=== PATIENT | male | born 1970 | race Caucasian/White ===

== ENCOUNTER → 2016-08-17 | Outpatient (CLI) | payer BC ==
[~2016-08-17] MED LIST: ALBU1AER9; ASPEC81 PO; DEXL60CA4 PO; LORA0.5T12 PO; LPT40 PO; RANI300T2 PO
--- NOTE | 2016-08-18 06:09 | PAP/PSG TECHNICIAN REPORT ---
[facility] Pta Polysomnogram Report Study name: None Report date: 08/18/2016 Study date: 08/17/2016 Referring Physician: Julio BOND M.D. Name: MCKENZIE VANE Garcia Interpreting Physician: Elsy Bond M.D. Date of : 1970 Pta: Sary Dumont RPSGT. Sex: Male Age: 46 Study Type: PSG PAP Weight: 224 lbs Height: 46 years, Height 5' 8" BMI: 34.06 Medications: LORAZEPAM 0.5 MG, ATORVASTATIN 40 MG, DEXILANT 60 MG, ALBUTEROL, RANITIDINE 300 MG, HYDROCORTISONE MOON-PRAMOXINE 1-1% CREAM, ASPIRIN 81 MG, MULTI VIT Patient History 46 yr-old male here for a CPAP update study. He has been having trouble with the pressure settings. He will be placed on BiPAP if the CPAP pressure is too uncomfortable. The test was started on room air and 8 CMH2O (per doctor's order). ETCO2 testing was not utilized during this study. Room 1 Parameters Monitored NPSG: E1-M2, E2-M1, Fp1-M2, Fp2-M1, F3-M2, F4-M2, F4-M1, C3-M2, C4-M2, C4-M1, O1-M2, O2-M2, O2-M1, T3-M2, T4-M1, P3-M2, P4-M1, CHIN1, CHIN2, HR, EKG, Legs, PFLOW, SNOR, FLOW, CFLOW, Tidal Volume, THOR, ABDO, SpO2, PLTH, CPRESS, ETCO2 Wave, ETCO2, pH Sleep Architecture Sleep Stages Time at Lights Off 10:44:38 PM STAGES Time (min.) TST (%) Time at Lights On 5:55:38 AM Wake 104.5 -- Total Recording Time (TRT) 431.00 min. N1 41.5 13 Total Sleep Period (TSP) 387.0 min. N2 226.5 69 Total Sleep Time (TST) 326.5min. N3 0.0 0 Awake Time 104.5 min. REM 58.5 18 Wake after Sleep Onset 60.5 min. Sleep Efficiency (SE) 76 % Sleep Onset Latency (VERONICA) 44.0 min. Number of Stage 1 Shifts None Awakenings 26 Stage Changes 84 Number of REM periods 7 REM 58.5 18 REM Latency 55.0 min. NREM 268.0 82 Body Position Analysis Supine Right Left Side Prone Vertical Total Sleep Time (min.) 220.3 5.0 163.7 168.71 0.0 0.0 Total Sleep Time (%) 48% 2% 50% 52 0% N/A% Total Sleep Time REM (min.) 39.0 0.0 19.5 None 0.0 0.0 Total Sleep Time NREM (min.) 118.8 5.0 144.2 None 0.0 0.0 Intermittent Wake (min.) 62.5 24.4 17.5 None 0.0 0.0 Total Sleep Period (%) 46% None None None None None Arousals Myoclonus (PLM) * Events Count Index Events Count Index Spontaneous 46 8 Events Awake (PLMW) 52 29.9 Respiratory 21 4.2 Events Asleep w/ Arousal (PLMA) 3 0.6 PLM 3 1 Events Asleep w/o Arousal (PLMS) 42 7.7 Snoring 5 1 Total Asleep 45 8.3 Total 75 14 Total 97 14 Respiratory Analysis * CA OA MA CH H RERA Total Count 2 0 0 0 30 0 32 Index 0.4 0.0 0.0 0 5.5 0 5.9 Mean Duration 14.0 0.0 0.0 0.00 22.6 0.0 22.1 Longest Duration 15.1 0.0 0.0 0.00 0.0 0.0 48.3 Respiratory Event Summary Total Supine ~Supine Right Left Prone REM NREM Apneas Count 2 2 0 0 0 N/A 0 2 Index 0.4 1 0 0.0 0.0 N/A 0 0 Hypopneas (4% Desat) Count 30 29 1 1 0 N/A 7 23 Index 5.5 11.0 0 12.0 0.0 N/A 7.2 5.1 Apneas & All Hypopneas Count 32 31 1 1 0 N/A 7 25 Index 5.9 12 0 12 0 N/A 7.2 5.6 Respiratory Events (Endbander+All Hyp+RERA) Count 32 31 1 1 0 N/A 7 25 Index 5.9 12 0 12.0 0.0 N/A 7.2 5.6 Respiratory Related Arousal Count 21 31 0 0 0 N/A 1 22 Index 4.2 9 0 0 0 N/A 1 5 Snoring Analysis Supine Right Left Prone REM NREM Total Snore duration 1.0 min Snores count 26 0 2 N/A 5 23 28 Snore mean duration 2.1 Sec Snores index 10 0 1 N/A 5.1 5.1 5.1 TST with snoring (%) 0.3% Desaturation Event Summary: Minimum %SpO2 Event Count Mean/Min/Max Duration(sec.) Desaturation Index % Time In Bed > 90 65 29.0 / 11.0 / 59.0 9.2 98.7 86 - 90 1 37.3 / 37.3 / 37.3 10.9 1.3 81 - 85 0 N/A 0.0 0.0 76 - 80 0 N/A 0.0 0.0 71 - 75 0 N/A 0.0 0.0 66 - 70 0 N/A 0.0 0.0 61 - 65 0 N/A 0.0 0.0 56 - 60 0 N/A 0.0 0.0 51 - 55 0 N/A 0.0 0.0 < 50 0 N/A 0.0 0.0 Total REM NREM Awake <50% 0.0 min. 0.0 min. 0.0 min. 0.0 min. 51 - 60% 0.0 min. 0.0 min. 0.0 min. 0.0 min. 61 - 70% 0.0 min. 0.0 min. 0.0 min. 0.0 min. 71 - 80% 0.0 min. 0.0 min. 0.0 min. 0.0 min. 81 - 90% 5.5 min. 0.2 min. 4.6 min. 0.6 min. 91 - 100% 422.4 min. 58.3 min. 262.9 min. 101.2 min. Average 94 94 94 94 Minimum SpO2 86 90 86 88 Desaturation Event Index 9.0 8.2 9.6 9.8 # Desat. Events below 89% 9 N/A 9 0 Time(%) with Saturation below 89% 0.5 0.0 0.5 0.0 Time(min.) with Saturation below 89% 2.3 0.0 2.2 0.2 Time (mins) REM (mins) NREM (mins) % of TST SpO2 Below 90% 15 1 N14 1.1 SpO2 Below 88% 5 0 0 0 Heart Rate Analysis Min (bpm) Max (bpm) Average (bpm) Awake 33 96 59 NREM 47 127 57 REM 48 67 57 Overall 47 127 57 Supplemental O2 Values Minimum O2 level: None Value Start Time End Time Pta Comments Mr. Mead slept in the right, left, and supine positions. No cardiac arrhythmias or PLMs noted. No bruxism noted. CPAP was initiated at +8 CMH2O (per doctor's order) and up-titrated to a level of +11 CMH2O, Cflex 2 which nearly eliminated all respiratory events and snoring. Around 4 am, he woke up and requested to try BiPAP to see if the pressure would be more comfortable. He was then switched to BiPAP at +11/7 CMH2O AND up-titrated to a level of +12/7 CMH2O BiFlex 3. An Marleni View full face mask from [employer] was used during titration He did not wake up to use the restroom during the night. Mr. Mead stated that he slept ok and also stated that he felt better while using BiPAP. The final report will be interpreted and signed by a sleep physician. The completed physician report will then be placed in the patient medical record. Therapy Event: Therapy (cm H20) 8 10 11 12/12 01/11 Total Time at Pressure (min.) 133.7 35.3 152.1 61.4 48.4 TST at Pressure (min.) 87.2 34.8 138.9 24.6 40.9 # Periods 1 1 1 1 1 Sleep Onset (min.) 44.0 0.0 0.0 9.9 0.0 REM Onset (min.) 99.0 N/A 46.9 48.9 2.4 Sleep Efficiency % 65 98 91 40 84 Wakefulness (%) 34.8 1.4 8.6 60.0 15.5 Wakefulness (min.) 46.5 0.5 13.1 36.9 7.5 NREM 1 (%) 6.4 7.1 9.9 18.8 8.1 NREM 1 (min.) 8.5 2.5 15.0 11.6 3.9 NREM 2 (%) 46.2 91.5 63.1 3.3 71.2 NREM 2 (min.) 61.7 32.3 95.9 2.0 34.5 NREM 3 (%) 0.0 0.0 0.0 0.0 0.0 NREM 3 (min.) 0.0 0.0 0.0 0.0 0.0 REM (%) 12.7 0.0 18.4 17.9 5.2 REM (min.) 17.0 0.0 28.0 11.0 2.5 # Arousals 19 11 23 19 3 Arousal Index 13.1 19.0 9.9 46.4 4.4 # Snore 11 7 8 1 1 Snore Index 7.6 12.1 3.5 2.4 1.5 AHI 5.5 17.2 0.9 29.3 0.0 AHI Supine 79.5 17.2 1.2 32.2 N/A AHI Non-Supine 0.0 N/A 0.0 14.8 0.0 NREM AHI 6.8 17.2 0.0 31.0 0.0 REM AHI 0.0 N/A 4.3 27.3 0.0 RDI 5.5 17.2 0.9 29.3 0.0 # Obstructive 0 0 0 0 0 # Central Ap 0 0 0 2 0 # Mixed 0 0 0 0 0 # Hypopneas 8 10 2 10 0 RERAS 0 0 0 0 0 Total Respiratory Events 8 10 2 12 0 Time Below SpO2 89.00% (min.) 0.4 1.5 0.0 0.3 0.0 Mean NREM SpO2 (%) 94 93 94 94 95 Mean REM SpO2 (%) 94 N/A 94 94 95 Mean Sleep SpO2 (%) 94 93 94 94 95 Min NREM SpO2 (%) 87 86 91 88 91 Min REM SpO2 (%) 91 N/A 92 90 93 Position Supine (min.) 6.0 34.8 96.4 20.5 0.0 Position Non-supine (min.) 81.2 0.0 42.5 4.1 40.9 LM Index Sleep 8.3 17.2 4.3 24.4 4.4 LM Index NREM 9.4 17.2 2.7 31.0 3.1 LM Index REM 3.5 N/A 10.7 16.4 24.0 Mean Heart Rate (bpm) 60 58 56 55 55 Min Heart Rate (bpm) 52 51 48 47 49 CPAP REPORT Therapy Detail Time / Page # Comment CPAP 8 cm H2O Full Face Mask Flex Pressure Relief Humidifier on 10:41:50 PM / pg. 160 STARTING AT 8 CMH2O PER DOCTORS ORDER CPAP 10 cm H2O Full Face Mask Flex Pressure Relief Humidifier on 12:58:23 AM / pg. 433 INCREASED FOR HYPOPNEAS CPAP 11 cm H2O Full Face Mask Flex Pressure Relief Humidifier on 1:33:42 AM / pg. 504 INCREASED FOR HYPOPNEAS BiLevel 11/7 cm H2O Full Face Mask Flex Pressure Relief Humidifier on 4:05:45 AM / pg. 808 HE STATED THAT HE WOULD LIKE TO TRY BIPAP TO SEE IF THE PRESSURE WOULD BE MORE COMFORTABLE BiLevel 12/7 cm H2O Full Face Mask Flex Pressure Relief Humidifier on 5:07:11 AM / pg. 931 INCREASED IPAP FOR HYPOPNEAS
--- NOTE | 2016-09-11 19:54 | POLYSOMNOGRAPH REPORT ---
REFERRING PERSON: Elsy Bond MD QUARRYING SPECIALIST: Sary Dumont. Mr. Mead is a 46-year-old, male sent for a CPAP titration study. He has been having trouble tolerating CPAP at home. He is currently using CPAP at a pressure of 10. He will be placed on BiPAP during this test if his CPAP pressures become too uncomfortable. [place] sleepiness scale score on the evening of this study is not recorded. BMI is 34.06. Following the technical and digital specifications of the [place] [employer] (AASM) a standard diagnostic polysomnogram was performed monitoring EEG, EOG, EMG (chin and leg deviations), oxygen saturation, body position, digital video, respiratory effort and airflow. The sleep Stage and event scoring was based on the AASM Manual for the Scoring of Sleep and Associated Events 2007 edition. Apneas are defined as a drop in the peak thermal sensor excursion by >90% of baseline for at least 10 seconds. Hypopneas were scored using the 4% oxygen desaturation rule (4A-[employer]ic[employer]) and a decrease in the nasal pressure excursions by >30% of baseline for at least 10 seconds. Respiratory effort-related arousal (RERA's) is defined as a sequence of breaths lasting at least 10 seconds characterized by increasing respiratory effort or flattening of the nasal pressure waveform leading to an arousal from sleep when the sequence of breaths does not meet criteria for an apnea or hypopnea. Apnea Hypopnea index (AHI) is defined as the number of apneas and hypopneas occurring in an hour of sleep. Respiratory disturbance index (RDI) is defined as the number of apneas, hypopneas, and RERA's occurring in an hour of sleep. Mr. Aguiars total sleep period time was 387 minutes. Total sleep time was 326.5 minutes. Sleep efficiency was 76%. Latency to sleep onset was 44 minutes with wake after sleep onset of 60.5 minutes. Total non-REM sleep time was 268 minutes. He spent 13% of that time in N1 sleep, 69% in N2 sleep and no time in N3 sleep. REM latency was short at 55 minutes. Total REM sleep time was 58.5 minutes or 18% of total sleep time. There were 75 cortical arousals from sleep; 46 of these arousals were spontaneous, 21 were due to respiratory events, 3 due to periodic limb movements of sleep and 5 were due to snoring. There were 45 periodic limb movements noted on this test. Limb movement index was 8.3. Limb movement with arousal index was 0.6. There were 2 central, no obstructive and no mixed apneas on this test. There were 30 hypopnea and no RERA. During this titration, apnea-hypopnea index was 5.9. There were 28 snoring events. Total sleep time with snoring was 0.3%. Mean saturation during sleep was 94% with desaturations to 86%. Saturations were less than 89% for 2.3 minutes of recorded time. There was no cardiac ectopy noted on this study. Heart rate ranged from a low of 47 beats per minute to a high of 127 beats per minute during sleep. As stated above, this was a CPAP to BIPAP if necessary titration. This titration began on a CPAP pressure of 8, which is what he is on at home. Increasing pressures were needed to prevent apneas, hypopneas and arousals. He was increased on CPAP from a pressure of 8 to a pressure of 11 over the first half of the night. On a pressure of 11, he struggled to tolerate therapy and was switched to bilevel therapy. He was then titrated on bilevel therapy from a pressure of 11/7-12/7 over the remainder of the night. He was observed on a pressure of 12/7 for 40.9 minutes of recorded time; 2.5 of those minutes was spent in non-supine REM sleep. AHI and RDI on this pressure were both 0 and there was no desaturations less than 89%. IMPRESSION AND PLAN: Successful CPAP to BIPAP titration study in this patient with known obstructive sleep apnea. I would recommend that he be placed on a BiPAP machine rather than a CPAP machine at a pressure of 12/7. A download from his machine should be reviewed in 1 month; both to check compliance as well as AHI and further pressure adjustments can occur at that time.
== END | disposition home or self-care (01) ==
LOC: C.NEUR 21:00
PROVIDERS: ATTEND Family Medicine
DX: G47.33 Obstructive sleep apnea (adult) (pediatric) (principal); Z87.891 Personal history of nicotine dependence

== ENCOUNTER 2018-08-14 14:47 | Observation (INO) ==
--- OUTSIDE RECORDS SUMMARY | 2018-08-14 14:50 | External Medical Summary | Continuity of Care Document ---
:1970 Author Name Patrica Haines, Provider Address Unavailable Unavailable , Care Team Providers Name Role Phone Eddie Haines, Daniel Chin Unavailable [email or web address] Memory difficulty (780.93) (R41.3) Dizziness (780.4) (R42) Headache (784.0) (R51) Allergies and Adverse Reactions Morphine Derivatives (Adverse Event) [place] ction: Nausea Penicillins (Adverse Event) Reaction: Ra sh Medications Dexilant 60 MG Oral Capsule Delayed Release; Take 1 capsule twice daily Refills: 0 Fenofibrate 145 MG Oral Tablet; TAKE 1 TABLET DAILY. Refills: 0 Pravastatin Sodium 80 MG Oral Tablet; TAKE 1 TABLET DAILY. Refills: 0 raNITIdine HCl - 300 MG Oral Capsule; TAKE 1 CAPSULE DAILY. Refills: 0 LORazepam 0.5 MG Oral Tablet; TAKE TABLET PRN Refills: 0 ProAir HFA AERS Refills: 0 Vitamin B-12 1000 MCG Oral Tablet; Take 1 tablet daily Refills: 0 Amitriptyline HCl - 25 MG Oral Tablet; TAKE 1 TABLET B edtime Zaki Morgan Start: 15-Jul-2015 Quantity: 30 Refills: 2 Procedures History of Nasal Septal Deviation Repair Status: Completed History of Hand Surgery Status: Complete d History of Tonsillectomy Status: Complet ed History of Shoulder Surgery Status: Comp leted Immunizations Immunizations not documented Family History Father Family history of hyperlipidemia (V18.19) (Z83.438) Status: Active Family history of tuberculosis (V18.8) (Z83.1) Status: Activ e Mother Family history of Blocked artery (444.9) (I70.90) Status: Ac tive Sister Family history of asthma (V17.5) (Z82.5) Status: Active Family history of allergic rhinitis (V19.6) (Z83.6) Status: Active Grandmother Family history of diabetes mellitus (V18.0) (Z83.3) Status: Active Grandfather Family history of myocardial infarction (V17.3) (Z82.49) Sta tus: Active Plan of Treatment Planned Observations Planned Goals not documented Results No Known Results Results not documented Encounters Appointment; Daniel Morgan M.D. 16-Sep-2015 11:15 Encounter Diagnosis: Problem not documented
[2018-08-14] MEDS ORDERED: GI COCKTAIL ED USE PO ONE (15:19)
--- NOTE | 2018-08-14 15:24 | Emergency Department Note ---
ED Visit Note I assisted Dr. Dias in the care of this patient. Please see attending note for more information. . Resident Activity Tracking Resident Involvement: Resident Care Provided Care Provided: Adult ED
[2018-08-14 15:27] LABS: Basophils # (auto) 0.03 K/uL (0-0.2); Basophils % (auto) 0.5 %; Eosinophils % (auto) 1.7 %; Hematocrit (blood only) 42.9 % (42-52); Hemoglobin 14.8 g/dL (14.0-18.0); Lymphocytes # (auto) 2.29 K/uL (1.2-3.4); Lymphocytes % (auto) 39.7 %; Mean Corpuscular Hgb Conc 34.5 g/dL (32-36); Mean Corpuscular Volume 86.7 fL (80-100); Mean Platelet Volume 10.1 fL (7.4-10.4); Monocytes % (auto) 6.9 %; Neutrophils # (auto) 2.95 K/uL (1.4-6.5); Neutrophils % (auto) 51.2 %; Platelet Count 120 K/uL (130-400); RDW Coefficient of Variation 12.7 % (11.5-14.5); RDW Standard Deviation 40.6 fL (36.4-46.3); Red Blood Count 4.95 M/uL (4.7-6.1); White Blood Count 5.77 K/uL (4.8-10.8)
--- NOTE | 2018-08-14 15:32 | XRay Report ---
XR chest 1V portable HISTORY: 48 years-old Male Chest Pain acute atypical chest pain COMPARISON: Chest radiograph 10/17/2015 TECHNIQUE: Portable AP view of the chest FINDINGS: Cardiac silhouette is enlarged, unchanged. Linear subsegmental left basilar atelectasis/scarring is u nchanged. There is no pneumothorax, pleural effusion, focal airspace consolidation or overt pulmonary edema. Degenerative changes of the shoulders and spine. IMPRESSION: No acute process. The above report was generated using voice recognition software. It may contain grammatical, syntax o r spelling errors. Electronically signed by: Eduar Giron M.D. 08/14/2018 3:31 PM
[2018-08-14 15:35] LABS: Alanine Aminotransferase 84 U/L (12-78); Albumin Level 3.7 gm/dl (3.4-5.0); Aspartate Aminotransferase 31 U/L (15-37); BUN Creatinine Ratio 13.1 (10-20); Blood Urea Nitrogen 13 mg/dl (7-18); Calcium 8.9 mg/dl (8.5-10.1); Carbon Dioxide 26 mmol/L (21-32); Chloride 109 mmol/L (98-107); Creatinine Clr Calc Pharmacy 111.1 ml/min; Est GFR (Non-African American) 91.4; Glucose 123 mg/dl (70-99); Potassium 3.6 mmol/L (3.5-5.1); Sodium 142 mmol/L (136-145)
[2018-08-14 15:39] LABS: Albumin Globulin Ratio 1.1 (0.9-2); Alkaline Phosphatase 79 U/L (45-117); Bilirubin,Total 0.5 mg/dl (0.2-1); Globulin 3.3 gm/dl (2.5-4.0); Troponin I < 0.015 ng/ml (0-0.045)
[2018-08-14] MEDS ORDERED: FAMOTIDINE 20MG IV PUSH 20 MG/5 ML SYR IV STA (15:39)
[2018-08-14 15:43] LABS: Partial Thromboplastin Ratio 0.9; Partial Thromboplastin Time 23.9 Seconds (21.0-31.0); Prothrombin Time 10.5 Seconds (9.0-12.0)
[2018-08-14] MEDS ORDERED: ASPIRIN 81 MG ECTAB PO STA (16:38)
[2018-08-14] MEDS ORDERED: NITROGLYCERIN SL 0.4 MG/TAB TAB SL STA (16:50)
--- NOTE | 2018-08-14 17:48 | History & Physical Report ---
Date of Service August 14, 2018 Assessment & Plan (1) Chest pain: This is a 47yo M with a PMH of hyperlipidemia, GERD and LATRICIA who presents from cardiology clinic with intermittent chest pain x 1 week. -Chest pain has been intermittent since last Sunday, more severe today with radiation to left arm and jaw -Evaluated in cardiology clinic today by GEOVANNI Barron with concern for MSK vs unstable angina and sent to ED for further evaluation -H/o negative nuclear stress test in June 2016 -Initial troponin negative. EKG with normal sinus rhythm and nonspecific T wave abnormalities in inferior and anterior leads. CXR without acute cardiopulmonary abnormality -Trend serial cardiac enzymes, check 2D echo, repeat EKG in am -Routine cardiology consult, n.p.o. after midnight for possible stress test tomorrow -Sublingual ntg as needed (2) Elevated BP without diagnosis of hypertension: No documented history of hypertension. Patient denies taking antihypertensives at home -BP elevated at 172/100 in ED. Given amlodipine 5 mg, Vasotec 1.25mg Q6H PRN for SBP>180, DBP >100 (3) HLD (hyperlipidemia): Continue atorvastatin (4) GERD (gastroesophageal reflux disease): H/o laparoscopic Kenrick fundoplication -Continue PPI and H2 hima (5) Alcohol use disorder: Endorses 4 beers every night -At risk alcohol withdrawal protocol (6) LATRICIA (obstructive sleep apnea): CPAP HS (takes 0.5mg ativan for claustrophobia) DVT Ppx: SQ heparin Code status: FULL PCP: Angel Dispo: Observation telemetry. Plan to return home once medically stable. Patient seen in collaboration with Dr. Mejía. Please see addendum. History of Present Illness Chief Complaint: chest pain Primary Care Provider: Dayana Ortiz MD This is a 47yo M with a PMH of hyperlipidemia, GERD and LATRICIA who presents from cardiology clinic with intermittent chest pain x 1 week. Patient first noted chest pain last Sunday and it has continued to occur intermittently since then. On Sunday, pain felt more like heartburn the patient reached out to GI provider. Today, patient was shoveling gravel when he developed left-sided squeezing chest pain with radiation down left arm and up to left jaw. Denies any associated diaphoresis or shortness of breath. Pain improved when patient rested. Was seen in cardiology clinic an EKG was performed, showing normal sinus rhythm with incomplete right bundle branch block and inferior and anterior T wave abnormalities. No significant change from previous EKGs but due to presentation and family history of heart disease, GEOVANNI Barron sent patient over for further evaluation and likely stress test in the morning. In the ED, patient found to be hemodynamically stable. EKG without any new findings. Troponin negative. Chest pain negative for acute cardiopulmonary findings. Received GI cocktail and sublingual nitroglycerin since arrival and is currently chest pain-free. Will observe in telemetry overnight. Denies fever, chills, headache, lightheadedness, chest pain, palpitations, shortness of breath, vomiting, abdominal pain, dysuria, diarrhea constipation. Has been having nausea every morning for the past 3 months, but associates that with his acid reflux. Allergies Allergy/AdvReac Type Severity Reaction Status Date / Time cinnamon Allergy Severe CHEST Unverified 08/14/18 15:52 DISCOMFORT Penicillins Allergy Unknown RASH Verified 08/14/18 15:52 morphine AdvReac Unknown NAUSEA Verified 08/14/18 15:52 Home Medications Home Medications Medication Instructions Recorded Confirmed Type dexlansoprazole 60 mg PO BID #0 04/14/12 08/14/18 History ranitidine HCl 300 mg PO BID #0 04/14/12 08/14/18 History albuterol sulfate [ProAir HFA] 2 puff INHALATION Q6H PRN #0 01/27/14 08/14/18 History aspirin [Aspirin Low Dose] 81 mg PO DAILY 08/14/18 08/14/18 History atorvastatin 40 mg PO PM 08/14/18 08/14/18 History coenzyme Q10 [Co Q-10] 100 mg PO PM 08/14/18 08/14/18 History lorazepam 0.5 mg PO HS PRN 08/14/18 08/14/18 History montelukast 10 mg PO HS 08/14/18 08/14/18 History omega 8-mnu-pvj-fish oil [Fish Oil] 1 cap PO PM 08/14/18 08/14/18 History Past Med/Surg History Medical History HLD (hyperlipidemia) (Chronic) Perforated ulcer of intestine (Resolved) Surgical History Status post laparoscopic Kenrick fundoplication (Chronic) History of nasal surgery (Chronic) Family History Other Heart disease Social History Preferred Language: Azeri Communication Ability: Effective Electric Stop Installer Required: No Beliefs That Will Affect Care: Uatsdin Uatsdin Beliefs: Holiness Current Living Situation: Spouse and Family Other Information That Helps Us Care for You: No Feels Safe at Home: Yes Safety Concerns: Feels Safe At This Time Smoking Status: Never smoker Hx Alcohol Use: Yes (4 beers nightly) Alcohol type: beer Alcohol Intake Freq uency: Daily Hx Substance Use: No Review of Systems Review of Systems: At least ten systems reviewed and negative except as noted in the HPI. Physical Exam Physical Exam: General Appearance: WD/WN, no apparent distress, resting comfortably Head: normocephalic, atraumatic Eyes: normal inspection, PERRL, EOMI ENT: hearing grossly normal, pharynx normal (moist mucous membranes) Neck: supple, no JVD, no adenopathy Respiratory/Chest: Left chest wall tenderness to palpation. Lungs clear to auscultation. No wheezes, rales or rhonci. No respiratory distress or accessory muscle use Cardiovascular: regular rate, rhythm, no murmur, normal peripheral pulses Abdomen/GI: normal bowel sounds, soft, non-tender to palpation Extremities/Musculoskelatal: normal inspection, no calf tenderness, normal capillary refill, no pedal edema Neurologic/Psych: alert, normal mood/affect, oriented x 3 Skin: normal color, warm/dry Results & Data Vital Signs (Past 12 Hours) Vital Signs Temp Pulse Pulse Resp BP BP Pulse Ox 08/14/18 17:30 65 18 130/76 95 08/14/18 16:30 57 L 18 124/84 98 08/14/18 14:48 36.9 C 65 20 146/94 H 97 08/14/18 14:47 96 Laboratory Results Short CBC 08/14/18 Range/Units 15:06 WBC 5.77 (4.8-10.8) K/uL Hgb 14.8 (14.0-18.0) g/dL Hct 42.9 (42-52) % Plt Count 120 L (130-400) K/uL BMP 08/14/18 15:06 Sodium 142 Potassium 3.6 Chloride 109 H Carbon Dioxide 26 BUN 13 Creatinine 0.98 Glucose 123 H Calcium 8.9 Cardiac Enzymes 08/14/18 Range/Units 15:06 Troponin I < 0.015 (0-0.045) ng/ml Liver Function 08/14/18 Range/Units 15:06 Total Bilirubin 0.5 (0.2-1) mg/dl AST 31 (15-37) U/L ALT 84 H (12-78) U/L Alkaline Phosphatase 79 (45-117) U/L Albumin 3.7 (3.4-5.0) gm/dl Urine 08/14/18 Range/Units Unknown Urine Color Yellow Urine Appearance Clear (Clear) Urine pH 6.5 (4.5-7.5) Ur Specific [place] 1.025 (1.000-1.030) Urine Protein Negative (Negative) Urine Glucose (UA) Negative (Negative) Diagnostic Findings CXR: IMPRESSION: No acute process. ECG Rhythm: normal sinus Change: no significant change Additional Comments: incomplete RBBB, T wave abnormalities noted in inferior and anterior leads Supervising Physician Co-Signing Physician Notes Patient is a 48-year-old male with history of peptic ulcer disease, hyperlipidemia,LATRICIA noncompliant with CPAP, alcohol use disorder and other problems presents with history of intermittent left sided chest pain which ra diates down his left arm, left jaw associated with diaphoresis, nausea and shortness of breath. Patient was evaluated by his explosive ordnance disposal manager today who recommended further evaluation in ED. Please review HPI for complete details of presentation. On exam patient is moderately built and nourished, no apparent distress, normocephalic atraumatic, lungs are clear to auscultation, S1-S2, no murmur, abdomen soft nontender, grossly no focal neurological deficits, no pedal edema. Patient is admitted for management of chest pain rule out ACS. He was also noted to have elevated blood pressure which improved with medications. Initial troponins are negative. Chest x-ray showed no acute findings. EKG showed no signs of acute ischemia. Patient refuses nitroglycerin paste secondary to significant headache in the past. Will trend cardiac enzymes, check echo, consult cardiology for possible stress test. Control blood pressure. Forger Helper about the compliance of CPAP use. Continue aspirin, Lipitor. I personally reviewed the record. Patient is interviewed and examined at bedside. Patient's care is coordinated with Vickie Blackwell PA-C. Please refer to the documentation above for details of patient's presentation and for discussion of other issues.
[2018-08-14] MEDS ORDERED: ALUMINUM/MAGNESIUM SUSP 30 ML UDC PO PRN (18:53)
[2018-08-14] MEDS ORDERED: LORazepam 0.5 MG TAB PO PRN (18:53)
[2018-08-14] MEDS ORDERED: NITROGLYCERIN SL 0.4 MG/TAB TAB SL PRN (18:53)
[2018-08-14] MEDS ORDERED: ONDANSETRON INJ 2 MG/ML 2 ML VIAL IV PRN (18:53)
[2018-08-14] MEDS ORDERED: ACETAMINOPHEN 325 MG TAB PO PRN (18:53)
[2018-08-14] MEDS ORDERED: ALBUTEROL HFA INHALER 8.5 GM INH PRN (19:00)
[2018-08-14] MEDS ORDERED: ENALAPRILAT 1.25 MG in DEXTROSE 5% 25 ML IV PRN (19:07)
[2018-08-14 19:16] LABS: Appearance Urine Clear (Clear); Bilirubin Urine Negative (Negative); Blood Urine Negative (Negative); Color Urine Yellow; Glucose Urine UA Negative (Negative); Ketones Urine Negative (Negative); Leukocyte Esterase Urine Negative (Negative); Nitrite Urine Negative (Negative); Protein Urine Negative (Negative); Specific Gravity Urine 1.025 (1.000-1.030); Urobilinogen Urine Negative (Negative); pH Urine 6.5 (4.5-7.5)
[2018-08-14] MEDS ORDERED: AMLODIPINE BESYLATE 5 MG TAB PO STA (19:35)
[2018-08-14] MEDS ORDERED: LORazepam 1 MG/2 ML VIAL IV PRN (19:46)
[2018-08-14] MEDS: PANTOprazole 40 MG TAB PO SCH (20:38)
[2018-08-14] MEDS ORDERED: MONTELUKAST SODIUM 10 MG TABLET PO SCH (21:00)
[2018-08-14] MEDS ORDERED: ATORVASTATIN 40 MG TAB PO SCH (21:00)
[2018-08-14] MEDS ORDERED: OMEGA-3 (PURIFIED FISH OIL) 1 GM CAP PO SCH (21:00)
--- NOTE | 2018-08-14 22:18 | Emergency Department Note ---
Entered by Laina Nguyen acting as a scribe for History of Present Illness General Chief complaint: Chest Pain Stated complaint: CHEST PAIN AND BACK PAIN Time Seen by Provider: 08/14/18 14:58 Source: patient Mode of arrival: ambulatory Limitations: no limitations History of Present Illness Onset (ago): day(s) 3 Location: chest Radiation: back and extremity (left arm) Pain Consistency: + intermittent Maximum Pain Intensity: 6 Current Pain Intensity: 6 Quality: + other ("pressure") Relieved By: + none Exacerbated By: + none Associated symptoms: + nausea/vomiting (+nausea, -vomiting) Treatments prior to arrival: none The patient is a 48 year old male who presents to the ED with complaints of intermittent chest pain for the past few days. Today, his pain worsened, so he came to the ED. He rates the pain as a 6/10 in severity and states it feels like "pressure". The pain does radiate into his back and left arm. The episodes last about 30 minutes. The pain does not seem to be exertional. He states he has had a stress test in the past with no remarkable findings. The patient complains of nausea for the past month. He has not been vomiting. He denies any recent fevers. He is a nonsmoker. He does take daily baby Aspirin but denies any prior cardiac history. Home Medications Home Medications Medication Instructions Recorded Confirmed Type dexlansoprazole 60 mg PO BID #0 04/14/12 08/14/18 History ranitidine HCl 300 mg PO BID #0 04/14/12 08/14/18 History albuterol sulfate [ProAir HFA] 2 puff INHALATION Q6H PRN #0 01/27/14 08/14/18 History aspirin [Aspirin Low Dose] 81 mg PO DAILY 08/14/18 08/14/18 History atorvastatin 40 mg PO PM 08/14/18 08/14/18 History coenzyme Q10 [Co Q-10] 100 mg PO PM 08/14/18 08/14/18 History lorazepam 0.5 mg PO HS PRN 08/14/18 08/14/18 History montelukast 10 mg PO HS 08/14/18 08/14/18 History omega 6-ywe-ogm-fish oil [Fish Oil] 1 cap PO PM 08/14/18 08/14/18 History Allergies Allergy/AdvReac Type Severity Reaction Status Date / Time cinnamon Allergy Severe CHEST Unverified 08/14/18 15:52 DISCOMFORT Penicillins Allergy Unknown RASH Verified 08/14/18 15:52 morphine AdvReac Unknown NAUSEA Verified 08/14/18 15:52 Past Med/Surg History Medical History HLD (hyperlipidemia) (Chronic) Perforated ulcer of intestine (Resolved) Surgical History Status post laparoscopic Kenrick fundoplication (Chronic) History of nasal surgery (Chronic) Family History Other Heart disease Social History Preferred Language: Urdu Communication Ability: Effective Supervisor Shipping Required: No Beliefs That Will Affect Care: Protestant Protestant Beliefs: Jew Current Living Situation: Spouse and Family Other Information That Helps Us Care for You: No Feels Safe at Home: Yes Safety Concerns: Feels Safe At This Time Smoking Status: Never smoker Hx Alcohol Use: Yes (4 beers nightly) Alcohol type: beer Alcohol Intake Frequ ency: Daily Hx Substance Use: No Review of Systems See HPI for pertinent positives & negatives. and A total of 10 systems reviewed and were otherwise negative Physical Exam Vital Signs Vital Signs - 24 hr 08/14/18 14:47 08/14/18 14:48 08/14/18 16:30 Temperature 36.9 C Temperature Source Oral Sepsis Recent Fever Within 48 Hours No Sepsis New/Unexplained Change in Mental Status No Sepsis Action Taken by Nursing No Action Required Pulse Rate 65 Pulse Rate [Right Finger] 57 L Respiratory Rate 20 18 Blood Pressure 146/94 H Blood Pressure [Right Arm] 124/84 Blood Pressure Mean 111 Blood Pressure Mean [Right Arm] 97 Pulse Oximetry 96 97 98 Oxygen Delivery Method Room Air Room Air 08/14/18 17:30 Temperature Temperature Source Sepsis Recent Fever Within 48 Hours Sepsis New/Unexplained Change in Mental Status Sepsis Action Taken by Nursing Pulse Rate Pulse Rate [Right Finger] 65 Respiratory Rate 18 Blood Pressure Blood Pressure [Right Arm] 159/96 H Blood Pressure Mean Blood Pressure Mean [Right Arm] 117 Pulse Oximetry 95 Oxygen Delivery Method GENERAL: Awake, alert, fatigued-appearing, in no distress HENT: Normocephalic, atraumatic. Oropharynx with dry mucous membranes and otherwise unremarkable. EYES: Normal conjunctiva. Sclera non-icteric. NECK: Supple. No nuchal rigidity. FROM. No JVD. RESPIRATORY: CTAB. CARDIAC: Regular rate, normal rhythm. Extremities warm and well perfused. Pulses equal. ABDOMEN: Soft, non-distended. No tenderness to palpation. No rebound or guarding. No masses. RECTAL: Deferred. MUSCULOSKELETAL: Chest examination reveals no tenderness. The back is symmetrical on inspection without obvious abnormality. There is no CVA tenderness to palpation. No joint edema. LOWER EXTREMITIES: Calves are equal size bilaterally and non-tender. No edema. No discoloration. NEURO: Normal sensorium. No sensory or motor deficits noted. SKIN: No rash or jaundice noted. Course 1510: The patient was evaluated in room B3B and a complete history and physical were performed. 1730: I discussed the patients case with Vickie Blackwell PA-C, [facility]. The patient will be further evaluated. 1745: I reevaluated the patient. He is resting comfortably. I discussed his results and my recommendation he remain in the hospital for further evaluation and management and he verbalized complete understanding and agreement. Consultations Consultation #1: I discussed the patients case with Vickie Blackwell PA-C, [facility]. The patient will be further evaluated. Time: 17:30 Administered Medications Atorvastatin Calcium (Lipitor) 40 mg PO PM AYSE Stop: 09/13/18 20:59 Last Admin: 08/14/18 20:36 Dose: 40 mg Documented by: [id number] Fish Oil (Swoope-3 (Purified Fish Oil)) 1 gm PO QPM AYSE Stop: 09/13/18 20:59 Last Admin: 08/14/18 20:37 Dose: 1 gm Documented by: [id number] Montelukast Sodium (Singulair) 10 mg PO HS AYSE Stop: 09/13/18 20:59 Last Admin: 08/14/18 20:38 Dose: 10 mg Documented by: [id number] Pantoprazole Sodium (Protonix) 40 mg PO BID [facility]; Protocol Stop: 09/13/18 20:59 Last Admin: 08/14/18 20:38 Dose: 40 mg Documented by: [id number] Ranitidine HCl (Zantac) 300 mg PO BID [facility] Stop: 09/13/18 20:59 Last Admin: 08/14/18 20:37 Dose: 300 mg Documented by: [id number] Discontinued Medications Al Hydrox/Mg Hydrox/Simethicone () 1 dose PO ONE ONE Stop: 08/14/18 15:20 Last Admin: 08/14/18 15:38 Dose: 1 dose Documented by: [id number] Amlodipine Besylate (Norvasc) 5 mg PO NOW STA Stop: 08/14/18 19:36 Last Admin: 08/14/18 19:51 Dose: 5 mg Documented by: [id number] Aspirin (Ecotrin Ectab) 162 mg PO NOW STA Stop: 08/14/18 16:39 Last Admin: 08/14/18 17:34 Dose: 162 mg Documented by: [id number] Famotidine (Pepcid 20mg Iv Push) 20 mg in 5 mls @ 2.5 mls/min IV NOW STA Stop: 08/14/18 15:40 Last Admin: 08/14/18 15:56 Dose: 2.5 mls/min Documented by: [id number] Nitroglycerin (Nitrostat) 0.4 mg SL NOW STA Stop: 08/14/18 16:51 Last Admin: 08/14/18 17:34 Dose: Not Given Documented by: [id number] Medical Decision Making Differential Diagnosis Differential diagnoses includes but is not limited to acute coronary syndrome, myocardial infarction, pericarditis, pulmonary embolus, aortic dissection, pneumonia, pneumothorax, musculoskeletal, shingles, esophageal. Medical Records Attestation: I reviewed the patient's medical records. Home Medications Current Medication List: was personally reviewed by me Laboratory Data Attestation: I reviewed the patient's lab results. Result diagrams: 08/14/18 15:06 08/14/18 15:06 Lab Results 08/14/18 08/14/18 08/14/18 Range/Units 15:06 15:06 15:06 WBC 5.77 (4.8-10.8) K/uL RBC 4.95 (4.7-6.1) M/uL Hgb 14.8 (14.0-18.0) g/dL Hct 42.9 (42-52) % MCV 86.7 (80-100) fL MCH 29.9 (25-34) pg MCHC 34.5 (32-36) g/dL RDW Std Deviation 40.6 (36.4-46.3) fL RDW Coeff of Sarah 12.7 (11.5-14.5) % Plt Count 120 L (130-400) K/uL MPV 10.1 (7.4-10.4) fL Immature Gran % (Auto) 0.0 % Neut % (Auto) 51.2 % Lymph % (Auto) 39.7 % Avery % (Auto) 6.9 % Eos % (Auto) 1.7 % Baso % (Auto) 0.5 % Immature Gran # (Auto) 0.00 (0.00-0.02) K/uL Neut # (Auto) 2.95 (1.4-6.5) K/uL Lymph # (Auto) 2.29 (1.2-3.4) K/uL Avery # (Auto) 0.40 (0.11-0.59) K/uL Eos # (Auto) 0.10 (0-0.5) K/uL Baso # (Auto) 0.03 (0-0.2) K/uL PT 10.5 (9.0-12.0) Seconds INR 1.0 (0.9-1.1) APTT 23.9 (21.0-31.0) Seconds PTT Ratio 0.9 Sodium 142 (136-145) mmol/L Potassium 3.6 (3.5-5.1) mmol/L Chloride 109 H (98-107) mmol/L Carbon Dioxide 26 (21-32) mmol/L Anion Gap 7.0 (3-11) BUN 13 (7-18) mg/dl Creatinine 0.98 (0.6-1.4) mg/dl Est Cr Clr Drug Dosing 111.1 ml/min Est GFR ( Amer) 106.0 Est GFR (Non-Af Amer) 91.4 BUN/Creatinine Ratio 13.1 (10-20) Glucose 123 H (70-99) mg/dl Calcium 8.9 (8.5-10.1) mg/dl Total Bilirubin 0.5 (0.2-1) mg/dl AST 31 (15-37) U/L ALT 84 H (12-78) U/L Alkaline Phosphatase 79 (45-117) U/L Troponin I < 0.015 (0-0.045) ng/ml Total Protein 7.0 (6.4-8.2) gm/dl Albumin 3.7 (3.4-5.0) gm/dl Globulin 3.3 (2.5-4.0) gm/dl Albumin/Globulin Ratio 1.1 (0.9-2) Lipase 162 (73-393) U/L Imaging Data Radiologist's Impression: Radiology results as stated below per my review and the radiologist's interpretation: XR chest 1V portable HISTORY: 48 years-old Male Chest Pain acute atypical chest pain COMPARISON: Chest radiograph 10/17/2015 TECHNIQUE: Portable AP view of the chest FINDINGS: Cardiac silhouette is enlarged, unchanged. Linear subsegmental left basilar ate lectasis/scarring is unchanged. There is no pneumothorax, pleural effusion, focal airspace consolidation or overt pulmonary edema. Degenerative changes of the shoulders and spine. IMPRESSION: No acute process. The above report was generated using voice recognition software. It may contain grammatical, syntax or spelling errors. Electronically signed by: Eduar Giron M.D. 08/14/2018 3:31 PM ECG Data Attestation: I personally reviewed and interpreted this ECG as follows: Indication: chest pain Rate (beats per minute): 61 Findings: + other (Non-specific T wave abnormality), + RBBB (Incomplete RBBB) and + left axis deviation Blood Pressure Blood Pressure Findings: Elevated blood pressure Blood Pressure Disposition: further management by hospitalist ARTHUR Narrative The patient is a pleasant 48 y/o gentleman with a pmhx of perforated gastric ulcer, bryon funduplification who presents to the emergency department with intermittent CP over the past few days per HPI. Initially, patient denied any correlation with exertion or rest and denies developing exertional sx prior his current sx. However, we subsequently obtained [facility] cardiology clinic visit note from today where he did report exertional sx at his appointment. Patient denies any significant pain or pressure at this time. On arrival the patient is in NAD, AFVSS. EKG demonstrates incomplete RBBB with nonspecific TWA similar to prior and otherwise without overt acute ischemia. CXR negative for acute pr ocess. WBC, H/H wnl. Platelets 120 without recent values for comparison though similar values in the past. Chemistry without acidosis. LFTs and electrolytes unremarkable. Troponin negative. Patient denies any significant sx in the ED and so denied any change with GI cocktail and pepcid. Given report of possible exertional componenet to his sx given ASA and trial of NTG. Resident, Dr. Suazo, discussed the patient's case with Chanell Gracia [facility], who will evaluate the patient for admission. This patient was managed with the assistance of resident, Dr. Ahuja. I discussed the case with the resident, examined the patient, and confirm the findings and plan as documented in this note. Impression & Plan Substernal chest pain, Thrombocytopenia Discharge Plan Visit Data *Final* Discharge Date/Time: 08/14/18 18:45 Chief Complaint: Chest Pain Stated Complaint: CHEST PAIN AND BACK PAIN ED Provider: Paul Dias ED Midlevel Provider: Steve Suazo Discharge Problem: Substernal chest pain, Thrombocytopenia Patient Disposition: Admitted As Inpatient Discharge Instructions Interventions: ED Discharge Assessment Last Done: 08/14/18 18:45 The scribe's documentation has been prepared under my direction and personally reviewed by me in its entirety. I confirm that the note above accurately reflects all work, treatment, procedures, and medical decision making performed by me.
[2018-08-15 03:58] LABS: Hemoglobin 14.4 g/dL (14.0-18.0); Mean Corpuscular Hgb Conc 33.5 g/dL (32-36); Mean Platelet Volume 10.1 fL (7.4-10.4); Platelet Count 116 K/uL (130-400); RDW Coefficient of Variation 12.6 % (11.5-14.5); RDW Standard Deviation 40.1 fL (36.4-46.3); Red Blood Count 4.94 M/uL (4.7-6.1); White Blood Count 6.66 K/uL (4.8-10.8)
[2018-08-15 04:16] LABS: BUN Creatinine Ratio 14.4 (10-20); Blood Urea Nitrogen 14 mg/dl (7-18); Calcium 8.3 mg/dl (8.5-10.1); Carbon Dioxide 30 mmol/L (21-32); Chloride 106 mmol/L (98-107); Creatinine Clr Calc Pharmacy 115.8 ml/min; Est GFR (African American) 111.5; Est GFR (Non-African American) 96.2; Glucose 93 mg/dl (70-99); Potassium 3.8 mmol/L (3.5-5.1); Sodium 139 mmol/L (136-145)
[2018-08-15 04:21] LABS: Chol HDL Ratio 5; Cholesterol 152 mg/dl (0-200); HDL Cholesterol 33 mg/dl; LDL Cholesterol Calculated 45 mg/dl; Triglycerides 369 mg/dl (0-150); Troponin I < 0.015 ng/ml (0-0.045); VLDL Cholesterol 74 mg/dl
[2018-08-15 07:35] LABS: Estimated Average Glucose 120 mg/dl; Hemoglobin A1C 5.8 % (4.5-5.6)
[2018-08-15] MEDS: PANTOprazole 40 MG TAB PO SCH (08:08)
[2018-08-15] MEDS ORDERED: THIAMINE HCL 100 MG TAB PO SCH (09:00)
[2018-08-15] MEDS ORDERED: ASPIRIN 81 MG ECTAB PO SCH (09:00)
[2018-08-15] MEDS ORDERED: AMLODIPINE BESYLATE 5 MG TAB PO SCH (09:00)
[2018-08-15] MEDS ORDERED: FOLIC ACID 1 MG TAB PO SCH (09:00)
--- NOTE | 2018-08-15 10:06 | Cardiology Consultation ---
Date of Consultation August 15, 2018 Assessment & Plan (1) Substernal chest pain: Patient has a long history of chest pain, dating back many years with multiple stress tests which were ngative and underlying abnormal EKG. Recent GI work up was unremarkable, with negative UGI and normal HIDA. Recently symptoms progressed, now chest pain x 1 week, worse with activities/construction work. Inferior and lateral T wave inversions noted. Negative cardiac enzymes x3. Chest "burning" noted this morning. Options discussed in regards to repeat stress test vs diagnostic cardiac cath. Patient wishes for definitive answers and wishes to proceed with cardiac cath. He has significant risk factors including dyslipidemia, obesity, borderline hypertension, and family history. Risks of cath discussed. Patient agreeable to proceeding. remain NPO. Case discussed with Dr. So. Further recommendations pending results. (2) Elevated BP without diagnosis of hypertension: BP elevated on arrival to ER. Started on amlodipine Improved. May benefit from low dose amlodipine on discharge (3) HLD (hyperlipidemia): Continue atorvastatin (4) Thrombocytopenia: chronic at baseline (5) LATRICIA (obstructive sleep apnea): Supervising Physician Co-Signing Physician Notes I have reviewed the chart, discussed the case with Jason Ana, interviewed and examined the patient. He has had multiple stress test with continued chest pain. I agree that the best approach is for a cardiac catheterization on a need to know basis. I have explained the risk, benefit and intent of the procedure to the patient including the potential for catheter-based intervention. He is willing to proceed. History of Present Illness Reason for Consultation: Chest pain Requesting Physician: Dr. Johnson Attending Physician: Dr. So History of Present Illness Patient is a 48-year-old male with history of dyslipidemia with hypertriglyceridemia, family history of premature coronary artery disease, chronic GERD with history of Kenrick fundoplication, LATRICIA, and chronic thrombocytopenia with chronic alcohol intake. He is known to [facility] cardiology due to recurrent chest pain and having undergone multiple stress tests in the past most recently in 2017 which was negative for inducible ischemia. He has a chronically abnormal EKG with T wave inversions in the inferior and anterolateral leads. He denies prior cardiac catheterization. prior complaints of chest pain, have been attributed to GERD for which he follows with GI. Earlier this year he had a follow-up visit with GI reporting worsening chest pain symptoms and underwent repeat UGI and HIDA scan which were both unremarkble. Last week patient developed worsening chest pain symptoms described as a substernal tightness worse with exertion. He went to PCP office where EKG was completed and demonstrated normal sinus rhythm with T wave inversions in inferior and lateral leads. No significant changes from previous. Due to concerns he was scheduled for cardiology follow-up in the office yesterday to reevaluate his symptoms. Patient reported ongoing and worsening chest pain over the last week waxing and waning with activities as well as emotional stress. He reports this chest pain was different than his prior GERD-like symptoms. He apparently tried taking his GI medications without improvement. 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 He also reports worsening shortness of breath with activities over the last few weeks. No dizziness, syncope or near syncope. No palpitations. He also reports significant emotional stressors over the last few weeks possibly also contributing to his symptoms. While in the cardiology office patient was feeling poorly with substernal chest tightness. It was recommended he come to the emergency department due to persistent symptoms and concerns for unstable angina. Upon evaluation in the emergency department EKG with inferior and lateral T wave inversions noted. No significant change from prior. Cardiac enzymes unremarkable x3. Chronic mild thrombocytopenia noted. Chest x-ray without acute process. Blood pressure was elevated on arrival. He was treated with 5 mg of amlodipine with improvement in his readings. He denied Nitropaste due to prior complaints of headaches with nitro. He was admitted for observation overnight. He reports substernal chest tightness resolved last evening however he now is experiencing intermittent chest burning this morning. no radiation. no current SOB, diaphoresis. Allergies Allergy/AdvReac Type Severity Reaction Status Date / Time cinnamon Allergy Severe CHEST Unverified 08/14/18 15:52 DISCOMFORT Penicillins Allergy Unknown RASH Verified 08/14/18 15:52 morphine AdvReac Unknown NAUSEA Verified 08/14/18 15:52 Home Medications Home Medications Medication Instructions Recorded Confirmed Type dexlansoprazole 60 mg PO BID #0 04/14/12 08/14/18 History ranitidine HCl 300 mg PO BID #0 04/14/12 08/14/18 History albuterol sulfate [ProAir HFA] 2 puff INHALATION Q6H PRN #0 01/27/14 08/14/18 History aspirin [Aspirin Low Dose] 81 mg PO DAILY 08/14/18 08/14/18 History atorvastatin 40 mg PO PM 08/14/18 08/14/18 History coenzyme Q10 [Co Q-10] 100 mg PO PM 08/14/18 08/14/18 History lorazepam 0.5 mg PO HS PRN 08/14/18 08/14/18 History montelukast 10 mg PO HS 08/14/18 08/14/18 History omega 6-clr-fmf-fish oil [Fish Oil] 1 cap PO PM 08/14/18 08/14/18 History Patient History Medical History HLD (hyperlipidemia) (Chronic) Perforated ulcer of intestine (Resolved) Surgical History Status post laparoscopic Kenrick fundoplication (Chronic) History of nasal surgery (Chronic) Family History Other Heart disease Social History Preferred Language: [place] Citizen Communication Ability: Effective 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 Beliefs That Will Affect Care: Anabaptist Anabaptist Beliefs: Jew Current Living Situation: Spouse and Family Other Information That Helps Us Care for You: No Feels Safe at Home: Yes Safety Concerns: Feels Safe At This Time Smoking Status: Never smoker Hx Alcohol Use: Yes (4 beers nightly) Alcohol type: beer Alcohol Intake Frequency: Daily Hx Substance Use: No Review of Systems Review of Systems: All systems reviewed & are unremarkable except as noted in HPI & below Physical Exam Constitutional: WD/WN, vitals as above + obese Eyes: PERRL, conjunctivae normal, anicteric sclerae Respiratory: normal respiratory effort, lungs clear to auscultation Cardiovascular: RRR, no murmur, no edema Gastrointestinal (Abdomen): normal bowel sounds, soft, nontender, no hepatosplenomegaly Musculoskeletal: no cyanosis or clubbing, extremities motor strength 5/5 Psychiatric: A+Ox3, euthymic affect Results & Data Vital Signs (Past 12 Hours) Vital Signs Temp Pulse Resp BP BP Pulse Ox Pulse Ox 08/15/18 07:31 36.5 C 55 L 18 144/77 H 97 08/15/18 03:42 36.7 C 59 L 17 112/66 98 08/15/18 00:00 99 08/14/18 23:39 36.6 C 54 L 18 120/78 97 Laboratory Results 08/15/18 08/15/18 08/15/18 Range/Units 03:23 03:23 03:23 WBC 6.66 (4.8-10.8) K/uL RBC 4.94 (4.7-6.1) M/uL Hgb 14.4 (14.0-18.0) g/dL Hct 43.0 (42-52) % MCV 87.0 (80-100) fL MCH 29.1 (25-34) pg MCHC 33.5 (32-36) g/dL RDW Std Deviation 40.1 (36.4-46.3) fL RDW Coeff of Sarah 12.6 (11.5-14.5) % Plt Count 116 L (130-400) K/uL MPV 10.1 (7.4-10.4) fL Immature Gran % (Auto) % Neut % (Auto) % Lymph % (Auto) % Louisa % (Auto) % Eos % (Auto) % Baso % (Auto) % Immature Gran # (Auto) (0.00-0.02) K/uL Neut # (Auto) (1.4-6.5) K/uL Lymph # (Auto) (1.2-3.4) K/uL Louisa # (Auto) (0.11-0.59) K/uL Eos # (Auto) (0-0.5) K/uL Baso # (Auto) (0-0.2) K/uL PT (9.0-12.0) Seconds INR (0.9-1.1) APTT (21.0-31.0) Seconds PTT Ratio Sodium 139 (136-145) mmol/L Potassium 3.8 (3.5-5.1) mmol/L Chloride 106 (98-107) mmol/L Carbon Dioxide 30 (21-32) mmol/L Anion Gap 3.0 (3-11) BUN 14 (7-18) mg/dl Creatinine 0.94 (0.6-1.4) mg/dl Est Cr Clr Drug Dosing 115.8 ml/min Est GFR ( Amer) 111.5 Est GFR (Non-Af Amer) 96.2 BUN/Creatinine Ratio 14.4 (10-20) Glucose 93 (70-99) mg/dl Estimat Average Glucose 120 mg/dl Hemoglobin A1c 5.8 H (4.5-5.6) % Calcium 8.3 L (8.5-10.1) mg/dl Total Bilirubin (0.2-1) mg/dl AST (15-37) U/L ALT (12-78) U/L Alkaline Phosphatase (45-117) U/L Troponin I < 0.015 (0-0.045) ng/ml Total Protein (6.4-8.2) gm/dl Albumin (3.4-5.0) gm/dl Globulin (2.5-4.0) gm/dl Albumin/Globulin Ratio (0.9-2) Triglycerides 369 H (0-150) mg/dl Cholesterol 152 (0-200) mg/dl LDL Cholesterol, Calc 45 mg/dl VLDL Cholesterol, Calc 74 mg/dl HDL Cholesterol 33 mg/dl Cholesterol/HDL Ratio 5 Lipase (73-393) U/L Urine Color Urine Appearance (Clear) Urine pH (4.5-7.5) Ur Specific [place] (1.000-1.030) Urine Protein (Negative) Urine Glucose (UA) (Negative) Urine Ketones (Negative) Urine Blood (Negative) Urine Nitrite (Negative) Urine Bilirubin (Negative) Urine Urobilinogen (Negative) Ur Leukocyte Esterase (Negative) 08/14/18 08/14/18 08/14/18 Range/Units Unknown 20:59 15:06 WBC (4.8-10.8) K/uL RBC (4.7-6.1) M/uL Hgb (14.0-18.0) g/dL Hct (42-52) % MCV (80-100) fL MCH (25-34) pg MCHC (32-36) g/dL RDW Std Deviation (36.4-46.3) fL RDW Coeff of Sarah (11.5-14.5) % Plt Count (130-400) K/uL MPV (7.4-10.4) fL Immature Gran % (Auto) % Neut % (Auto) % Lymph % (Auto) % Louisa % (Auto) % Eos % (Auto) % Baso % (Auto) % Immature Gran # (Auto) (0.00-0.02) K/uL Neut # (Auto) (1.4-6.5) K/uL Lymph # (Auto) (1.2-3.4) K/uL Louisa # (Auto) (0.11-0.59) K/uL Eos # (Auto) (0-0.5) K/uL Baso # (Auto) (0-0.2) K/uL PT (9.0-12.0) Seconds INR (0.9-1.1) APTT (21.0-31.0) Seconds PTT Ratio Sodium 142 (136-145) mmol/L Potassium 3.6 (3.5-5.1) mmol/L Chloride 109 H (98-107) mmol/L Carbon Dioxide 26 (21-32) mmol/L Anion Gap 7.0 (3-11) BUN 13 (7-18) mg/dl Creatinine 0.98 (0.6-1.4) mg/dl Est Cr Clr Drug Dosing 111.1 ml/min Est GFR ( Amer) 106.0 Est GFR (Non-Af Amer) 91.4 BUN/Creatinine Ratio 13.1 (10-20) Glucose 123 H (70-99) mg/dl Estimat Average Glucose mg/dl Hemoglobin A1c (4.5-5.6) % Calcium 8.9 (8.5-10.1) mg/dl Total Bilirubin 0.5 (0.2-1) mg/dl AST 31 (15-37) U/L ALT 84 H (12-78) U/L Alkaline Phosphatase 79 (45-117) U/L Troponin I < 0.015 < 0.015 (0-0.045) ng/ml Total Protein 7.0 (6.4-8.2) gm/dl Albumin 3.7 (3.4-5.0) gm/dl Globulin 3.3 (2.5-4.0) gm/dl Albumin/Globulin Ratio 1.1 (0.9-2) Triglycerides (0-150) mg/dl Cholesterol (0-200) mg/dl LDL Cholesterol, Calc mg/dl VLDL Cholesterol, Calc mg/dl HDL Cholesterol mg/dl Cholesterol/HDL Ratio Lipase 162 (73-393) U/L Urine Color Yellow Urine Appearance Clear (Clear) Urine pH 6.5 (4.5-7.5) Ur Specific [place] 1.025 (1.000-1.030) Urine Protein Negative (Negative) Urine Glucose (UA) Negative (Negative) Urine Ketones Negative (Negative) Urine Blood Negative (Negative) Urine Nitrite Negative (Negative) Urine Bilirubin Negative (Negative) Urine Urobilinogen Negative (Negative) Ur Leukocyte Esterase Negative (Negative) 08/14/18 08/14/18 Range/Units 15:06 15:06 WBC 5.77 (4.8-10.8) K/uL RBC 4.95 (4.7-6.1) M/uL Hgb 14.8 (14.0-18.0) g/dL Hct 42.9 (42-52) % MCV 86.7 (80-100) fL MCH 29.9 (25-34) pg MCHC 34.5 (32-36) g/dL RDW Std Deviation 40.6 (36.4-46.3) fL RDW Coeff of Sarah 12.7 (11.5-14.5) % Plt Count 120 L (130-400) K/uL MPV 10.1 (7.4-10.4) fL Immature Gran % (Auto) 0.0 % Neut % (Auto) 51.2 % Lymph % (Auto) 39.7 % Louisa % (Auto) 6.9 % Eos % (Auto) 1.7 % Baso % (Auto) 0.5 % Immature Gran # (Auto) 0.00 (0.00-0.02) K/uL Neut # (Auto) 2.95 (1.4-6.5) K/uL Lymph # (Auto) 2.29 (1.2-3.4) K/uL Louisa # (Auto) 0.40 (0.11-0.59) K/uL Eos # (Auto) 0.10 (0-0.5) K/uL Baso # (Auto) 0.03 (0-0.2) K/uL PT 10.5 (9.0-12.0) Seconds INR 1.0 (0.9-1.1) APTT 23.9 (21.0-31.0) Seconds PTT Ratio 0.9 Sodium (136-145) mmol/L Potassium (3.5-5.1) mmol/L Chloride (98-107) mmol/L Carbon Dioxide (21-32) mmol/L Anion Gap (3-11) BUN (7-18) mg/dl Creatinine (0.6-1.4) mg/dl Est Cr Clr Drug Dosing ml/min Est GFR ( Amer) Est GFR (Non-Af Amer) BUN/Creatinine Ratio (10-20) Glucose (70-99) mg/dl Estimat Average Glucose mg/dl Hemoglobin A1c (4.5-5.6) % Calcium (8.5-10.1) mg/dl Total Bilirubin (0.2-1) mg/dl AST (15-37) U/L ALT (12-78) U/L Alkaline Phosphatase (45-117) U/L Troponin I (0-0.045) ng/ml Total Protein (6.4-8.2) gm/dl Albumin (3.4-5.0) gm/dl Globulin (2.5-4.0) gm/dl Albumin/Globulin Ratio (0.9-2) Triglycerides (0-150) mg/dl Cholesterol (0-200) mg/dl LDL Cholesterol, Calc mg/dl VLDL Cholesterol, Calc mg/dl HDL Cholesterol mg/dl Cholesterol/HDL Ratio Lipase (73-393) U/L Urine Color Urine Appearance (Clear) Urine pH (4.5-7.5) Ur Specific [place] (1.000-1.030) Urine Protein (Negative) Urine Glucose (UA) (Negative) Urine Ketones (Negative) Urine Blood (Negative) Urine Nitrite (Negative) Urine Bilirubin (Negative) Urine Urobilinogen (Negative) Ur Leukocyte Esterase (Negative) Diagnostic Findings EKG this AM: NSR with T wave inversions in inferior and lateral leads Chest xray on admission: Clear, no acute process 2D echo report reviewed: Preserved LV systolic function, no wall motion abnormalities. No signficant valvular heart disease.
[2018-08-15] MEDS ORDERED: MIDAZOLAM HCL 1 MG/ML 2ML VIAL ONE (10:19)
[2018-08-15] MEDS ORDERED: NiCARDipine HCL INJ 2.5 MG/ML 10 ML AMP ONE (10:19)
[2018-08-15] MEDS ORDERED: HEPARIN (PORCINE) 1000 UNIT/ML 10 ML (CATH LAB USE ONLY) ONE (10:19)
[2018-08-15] MEDS ORDERED: NITROGLYCERIN/D5W 100MCG/ML 20ML SYR ONE (10:19)
[2018-08-15] MEDS ORDERED: fentaNYL citrate 100 MCG/2 ML VIAL ONE (10:19)
--- NOTE | 2018-08-15 11:27 | Cardiac Catheterization ---
Date of Service August 15, 2018 Cardiac Cath Report Cardiac Cath Report History: This is a 48-year-old male patient who is had continuous episodic chest pain with multiple previous exercise stress test. He was admitted again with chest pain and this time will have a cardiac catheterization on need to know basis. Procedure: 1. Coronary angiography 2. Left heart catheterization Procedure summary: After informed consent was obtained the patient was taken to the cardiac catheterization lab where he was prepped and draped in usual manner for a right transradial approach. Preformed 5 Romansh diagnostic catheters were utilized for the coronary angiograms. Following the procedure the arterial sheath was removed and hemo-band placed. Patient was returned to his room in stable condition. ACC data: Start time 10:55 AM End time 11:15 AM Opening aortic pressure 115/85 Closing aortic pressure 107/76 Left ventricular pressure 101/13 Sedation 1 mg intravenous Versed IV fluid 50 cc normal saline Contrast 69 cc Optiray Fluoroscopy time 5.7 minutes Radiation 1320 mGy DAP 8507 mGy/m Right dominant system AUC score 6 Coronary angiography: Selective injections of the left coronary artery revealed a left main trunk to be patent. There is a high ramus artery off of the left circumflex which is widely patent. The left circumflex then gives off to additional large marginal branches which are widely patent. The LAD extends all the way around the apex of the heart. There is a large ramus branch from the LAD which is widely patent. The left coronary system is widely patent and within normal limits. Selective injections of the right coronary artery reveal it to be dominant. The right coronary artery is smooth in appearance widely patent and within normal limits. Summary: The patient has widely patent coronary anatomy Recommendations: Continued risk factor modification
[2018-08-15] MEDS ORDERED: SODIUM CHLORIDE 0.9% 1000ML 1,000 ML IV SCH (11:45)
--- NOTE | 2018-08-15 16:05 | Hospitalist Progress Note ---
Date of Service August 15, 2018 Assessment & Plan (1) Chest pain: non-cardiac chest pain This is a 47yo M with a PMH of hyperlipidemia, GERD and LATRICIA who presents from cardiology clinic with intermittent chest pain x 1 week. -Chest pain has been intermittent since last Sunday, more severe today with radiation to left arm and jaw -Evaluated in cardiology clinic today by GEOVANNI Barron with concern for MSK vs unstable angina and sent to ED for further evaluation -H/o negative nuclear stress test in June 2016 -Patient was primarily evaluated for chest pain. troponins negative x 3. normal echocardiogram. Because patient has had chest pains in the past with multiple normal exercise stress test, cardiac catheterization was performed and showed widely patent coronary arteries. Episode of Hypertension -blood pressure 172/100 on 08/14/18 -no clinical signs of alcohol withdrawal -started on amlodipine 5 mg -Patient is given a prescription of amlodipine 5 mg daily as he had episode of hypertension on presentation for which amlodipine was started. Patient should use this prescription if blood pressure above 140/90 consistently (2) GERD (gastroesophageal reflux disease): H/o laparoscopic Kenrick fundoplication -Patient may continue to take home dose dexlansoprazole and ranitidine and has outpatient follow up -Patient should follow up 08/22/2018 10:00 AM Provider Thuy Knott DO Department Gastroenterology, [facility] 08/22/2018 2:05 PM Provider Dayana Ortiz MD Department General Internal Medicine [facility] 09/04/2018 8:30 AM Provider CEDRICK Redd Department Sleep Disorders, [facility] 10/02/2018 8:20 AM Provider Thuy Knott DO Department Gastroenterology, [facility] 12/10/2018 8:40 AM Provider Dayana Ortiz MD Department General Internal Medicine [facility] (3) LATRICIA (obstructive sleep apnea): CPAP HS (takes 0.5mg ativan for claustrophobia) Discharge Diagnosis non cardiac chest pain. Gastroesophageal reflux disease. Episode of Hypertension. Obstructive sleep apnea Subjective s/p cardiac cath. no acute chest pain. no abdomen pain. breathing on room air. no vomiting. no lightheadedness. no dizziness Physical Exam Eyes: PERRL, conjunctivae normal, anicteric sclerae EOM intact bilaterally ENMT: external ear and nose normal, oropharynx normal Neck: trachea midline, no thyromegaly normal visual inspection Respiratory: normal respiratory effort, lungs clear to auscultation Cardiovascular: RRR, no murmur, no edema Gastrointestinal (Abdomen): normal bowel sounds, soft, nontender, no hepatosplenomegaly Musculoskeletal: no cyanosis or clubbing, extremities motor strength 5/5 Head/Neck/Chest: normocephalic and head atraumatic Neurologic: PERRL, EOMI, accommodation nl, no face palsy, no dysarthria CN's II-XI intact bilaterally Psychiatric: A+Ox3, euthymic affect Results & Data Vital Signs (Past 12 Hours) Vital Signs Temp Pulse Pulse Resp BP BP BP 08/15/18 15:38 36.7 C 60 16 113/64 08/15/18 15:01 55 L 13 113/64 08/15/18 14:01 60 6 L 111/68 08/15/18 13:02 62 19 103/62 08/15/18 12:31 69 10 L 125/68 08/15/18 12:24 59 L 14 107/62 08/15/18 11:48 59 L 18 124/72 08/15/18 11:33 36.5 C 58 L 18 128/74 08/15/18 08:00 50 L 08/15/18 07:31 36.5 C 55 L 18 144/77 H Pulse Ox 08/15/18 15:38 98 08/15/18 15:01 94 08/15/18 14:01 95 08/15/18 13:02 95 08/15/18 12:31 95 08/15/18 12:24 96 08/15/18 11:48 97 08/15/18 11:33 98 08/15/18 08:00 08/15/18 07:31 97
--- NOTE | 2018-08-15 16:10 | Discharge Summary ---
Date of Service August 15, 2018 Admission HPI Per Admitting Provider This is a 47yo M with a PMH of hyperlipidemia, GERD and LATRICIA who presents from cardiology clinic with intermittent chest pain x 1 week. Patient first noted chest pain last Sunday and it has continued to occur intermittently since then. On Sunday, pain felt more like heartburn the patient reached out to GI provider. Today, patient was shoveling gravel when he developed left-sided squeezing chest pain with radiation down left arm and up to left jaw. Denies any associated diaphoresis or shortness of breath. Pain improved when patient rested. Was seen in cardiology clinic an EKG was performed, showing normal sinus rhythm with incomplete right bundle branch block and inferior and anterior T wave abnormalities. No significant change from previous EKGs but due to presentation and family history of heart disease, GEOVANNI Barron sent patient over for further evaluation and likely stress test in the morning. In the ED, patient found to be hemodynamically stable. EKG without any new findings. Troponin negative. Chest pain negative for acute cardiopulmonary findings. Received GI cocktail and sublingual nitroglycerin since arrival and is currently chest pain-free. Will observe in telemetry overnight. Denies fever, chills, headache, lightheadedness, chest pain, palpitations, shortness of breath, vomiting, abdominal pain, dysuria, diarrhea constipation. Has been having nausea every morning for the past 3 months, but associates that with his acid reflux. Admission Exam Per Admitting Provider General Appearance: WD/WN, no apparent distress, resting comfortably Head: normocephalic, atraumatic Eyes: normal inspection, PERRL, EOMI ENT: hearing grossly normal, pharynx normal (moist mucous membranes) Neck: supple, no JVD, no adenopathy Respiratory/Chest: Left chest wall tenderness to palpation. Lungs clear to auscultation. No wheezes, rales or rhonci. No respiratory distress or accessory muscle use Cardiovascular: regular rate, rhythm, no murmur, normal peripheral pulses Abdomen/GI: normal bowel sounds, soft, non-tender to palpation Extremities/Musculoskelatal: normal inspection, no calf tenderness, normal c apillary refill, no pedal edema Neurologic/Psych: alert, normal mood/affect, oriented x 3 Skin: normal color, warm/dry Principal Diagnosis non cardiac chest pain. Gastroesophageal reflux disease. Episode of Hypertension. Obstructive sleep apnea Discharge Exam Eyes PERRL, conjunctivae normal, anicteric sclerae EOM intact bilaterally ENMT external ear and nose normal, oropharynx normal Neck trachea midline, no thyromegaly normal visual inspection Respiratory normal respiratory effort, lungs clear to auscultation Cardiovascular RRR, no murmur, no edema Gastrointestinal (Abdomen) normal bowel sounds, soft, nontender, no hepatosplenomegaly Musculoskeletal no cyanosis or clubbing, extremities motor strength 5/5 Head/Neck/Chest: normocephalic and head atraumatic Neurologic PERRL, EOMI, accommodation nl, no face palsy, no dysarthria CN's II-XI intact bilaterally Psychiatric A+Ox3, euthymic affect Discharge Data Allergies Allergy/AdvReac Type Severity Reaction Status Date / Time cinnamon Allergy Severe CHEST Unverified 08/14/18 15:52 DISCOMFORT Penicillins Allergy Unknown RASH Verified 08/14/18 15:52 morphine AdvReac Unknown NAUSEA Verified 08/14/18 15:52 Consultations 08/14/18 17:04 ED Decision to Admit Stat 08/15/18 08:00 Consult Cardiology Routine Procedures Performed Operation Date: 08/15/18 11:00 Actual Procedures p Cath, Left with Cors and Vent - Steve So DO s Cineradiography w/Routine Exam - Steve So DO Ordered Studies 08/15/18 09:33 CL Cath Imgs for PACS use only Stat Hospital Course (1) Chest pain: non-cardiac chest pain This is a 47yo M with a PMH of hyperlipidemia, GERD and LATRICIA who presents from cardiology clinic with intermittent chest pain x 1 week. -Chest pain has been intermittent since last Sunday, more severe today with radiation to left arm and jaw -Evaluated in cardiology clinic today by GEOVANNI Barron with concern for MSK vs unstable angina and sent to ED for further evaluation -H/o negative nuclear stress test in June 2016 -Patient was primarily evaluated for chest pain. troponins negative x 3. normal echocardiogram. Because patient has had chest pains in the past with multiple normal exercise stress test, cardiac catheterization was performed and showed widely patent coronary arteries. Episode of Hypertension -blood pressure 172/100 on 08/14/18 -no clinical signs of alcohol withdrawal -started on amlodipine 5 mg -Patient is given a prescription of amlodipine 5 mg daily as he had episode of hypertension on presentation for which amlodipine was started. Patient should use this prescription if blood pressure above 140/90 consistently (2) GERD (gastroesophageal reflux disease): H/o laparoscopic Kenrick fundoplication -Patient may continue to take home dose dexlansoprazole and ranitidine and has outpatient follow up -Patient should follow up 08/22/2018 10:00 AM Provider Thuy Knott DO Department Gastroenterology, [facility] 08/22/2018 2:05 PM Provider Dayana Ortiz MD Department General Internal Medicine [facility] 09/04/2018 8:30 AM Provider CEDRICK Redd Department Sleep Disorders, [facility] 10/02/2018 8:20 AM Provider Thuy Knott DO Department Gastroenterology, [facility] 12/10/2018 8:40 AM Provider Dayana Ortiz MD Department General Internal Medicine [facility] (3) LATRICIA (obstructive sleep apnea): CPAP HS (takes 0.5mg ativan for claustrophobia) Discharge Diagnosis non cardiac chest pain. Gastroesophageal reflux disease. Episode of Hypertension. Obstructive sleep apnea Total Time Total Time Spent Total Time Spent (In Minutes): 40 minutes Total Time Includes: Examination of the Patient, Discharge Planning, Medication Reconciliation and Communication With Other Providers Discharge Plan Discharge Items Patient Disposition: Home - Self-Care Reason For Visit: CHEST PAIN Discharge Diagnosis: non cardiac chest pain. Gastroesophageal reflux disease. Episode of Hypertension. Obstructive sleep apnea Condition: Good Discharge Goals: Decrease discomfort Activity: Per 'Additional Instructions' section Non-emergency contact: Primary Care Provider Call non-emergency contact if: you have any medication questions Follow-up/Referrals: Dayana Ortiz MD [Primary Care Provider] - Diet: Heart Healthy Addtl Provider Instructions: Discharge to home Patient was primarily evaluated for chest pain. troponins negative x 3. normal echocardiogram. Because patient has had chest pains in the past with multiple normal exercise stress test, cardiac catheterization was performed and showed widely patent coronary arteries. Patient is given a prescription of amlodipine 5 mg daily as he had episode of hypertension on presentation for which amlodipine was started. Patient should use this prescription if blood pressure above 140/90 consistently Patient may continue to take home dose dexlansoprazole and ranitidine and has outpatient follow up Patient should follow up 08/22/2018 10:00 AM Provider Thuy Knott DO Department Gastroenterology, [facility] 08/22/2018 2:05 PM Provider Dayana Ortiz MD Department General Internal Medicine [facility] 09/04/2018 8:30 AM Provider CEDRICK Redd Department Sleep Disorders, [facility] 10/02/2018 8:20 AM Provider Thuy Knott DO Department Gastroenterology, [facility] 12/10/2018 8:40 AM Provider Dayana Ortiz MD Department General Internal Medicine [facility] Prescriptions: New amlodipine 5 mg tablet 5 mg PO DAILY 30 Days Qty: 30 RF: 0 Continued dexlansoprazole 60 mg Capsule,Biphase Delayed Releas 60 mg PO BID Qty: 0 RF: 0 ranitidine HCl 300 mg Tablet 300 mg PO BID Qty: 0 RF: 0 albuterol sulfate [ProAir HFA] 90 mcg/actuation Hfa Aerosol Inhaler 2 puff INHALATION Q6H PRN (Reason: shortness of breath/ wheezing) Qty: 0 RF: 0 montelukast 10 mg tablet 10 mg PO HS RF: 0 coenzyme Q10 [Co Q-10] 100 mg Capsule 100 mg PO PM RF: 0 omega [id number] oil [Fish Oil] 1,000 mg (120 mg-180 mg) Capsule 1 cap PO PM RF: 0 atorvastatin 40 mg Tablet 40 mg PO PM RF: 0 aspirin [Aspirin Low Dose] 81 mg Tablet,Delayed Release (Dr/Ec) 81 mg PO DAILY RF: 0 lorazepam 0.5 mg tablet 0.5 mg PO HS PRN (Reason: Anxiety) RF: 0 Stand-Alone Forms: Call Back Authorization, [facility] Discharge Orders: Discharge Order (Routine); Ordered 08/15/18 Ordered By: John Johnson Admission Data Admit Date/Time: 08/14/18 17:38 Attending Provider: John Johnson Admit Provider: Kal Mejía Primary Care Provider: Dayana Ortiz Other Providers: Steve So Satish K. Service: Telemetry
== END 2018-08-15 16:38 | disposition home or self-care (01) ==
LOC: 2E 14:47 → ED 14:47 → 2E 18:45

== ENCOUNTER 2022-12-27 02:55 | Observation (INO) ==
--- NOTE | 2022-12-27 03:09 | Emergency Department Note ---
Impression & Plan Substernal chest pain ED Provider Note CHIEF COMPLAINT: Chest pain HISTORY OF PRESENTING ILLNESS: This 52-year-old male patient presents to the emergency department for evaluation of chest pain, dizziness, and fatigue. The patient states that he started feeling "crappy" yesterday afternoon with periods of dizziness, chest pressure and fatigue. The patient states that he just did not feel right. The symptoms were intermittent throughout the day. No longer having the dizziness and the dizziness symptoms are only intermittent. He denied any headache with the dizziness. He denied any other neurological symptoms with the dizziness. The chest pain symptoms started to get worse around 11 pm and they have persisted since that time. He could not sleep because of the symptoms. Finally around 2:30 am he did not feel like he could wait any longer because it felt like somebody was standing on his chest. No previous history of heart problems. He had a full cardiac workup including heart cath about 5 years ago with no abnormalities at that time per patient. He does have a history of a perforated gastric ulcer and reflux. He states that the symptoms do not feel similar to his perforated ulcer. He takes Dexilant and omeprazole with good control of his reflux symptoms. Denies any abdominal pain, nausea, or vomiting. Denies any fevers, cough, or URI symptoms. Denies urinary symptoms or problems with his BMs. Not on any blood thinners. Grandfather in his 50's from a heart attack. Grandmother and father with a history of a pacemaker. He does not smoke or vape. He has a history of hyperlipidemia, but no history of HTN. He has not taken any aspirin today. He is not on any erectile dysfunction medications. REVIEW OF SYSTEMS: See HPI for pertinent positives and pertinent negatives. ALLERGIES: Cinnamon, PCN, Morphine MEDICATIONS: Atorvastatin, fenofibrate, Dexilant, omeprazole, Fish oil PAST MEDICAL HISTORY: GERD, Hyperlipidemia, perforated gastric ulcer, T&A, uvula removed, lap Kenrick, shoulder surgery, 2 hand surgeries PHYSICAL EXAM: Vital Signs: Vitals are noted on the nurse's note and reviewed by myself. GENERAL: Non toxic in appearance and in no acute distress. SKIN: Capillary reflex less than 2 seconds. HEAD: Normocephalic, atraumatic. EARS: Bilateral external auditory canals clear without tragus tenderness. Bilateral tympanic membranes pearly ndiaye without erythema or effusion. No mastoid tenderness bilaterally. EYES: Pupils equal round and reactive to light and accommodation. Conjunctivae without injection, sclerae without icterus. Extraocular movements intact. NOSE: Patent, turbinates inflamed with no discharge. No sinus tenderness. MOUTH: Mucous membranes moist. Airway patent. Uvula surgically removed. Pharynx is not erythematous and not edematous without exudate. Pharynx without postnasal drip. No evidence for peritonsillar abscess. NECK: Supple without nuchal rigidity. No lymphadenopathy. HEART: Regular rate and rhythm without murmurs gallops or rubs. LUNGS: Clear to auscultation bilaterally without wheezes, rales or rhonchi. No accessory muscle use or retractions. ABDOMEN: Positive bowel sounds x 4. Normal tympanic percussion. Soft, nontender, without masses or organomegaly. MUSCULOSKELETAL: Full range of motion of the bilateral upper and lower extremities. Strength 5/5 and equal in the bilateral upper and lower extremities. Normal sensation to light and sharp touch of the bilateral upper and lower extremities. No tenderness to palpation of the bilateral calves. Negative Homans' sign bilaterally. Peripheral pulses 2+ and equal in the bilateral upper and lower extremities. NEURO: Patient was alert and oriented. Normal mental status exam. No facial droop. Cerebellar function intact. No focal neurological deficits. DIFFERENTIAL DIAGNOSIS: Differential diagnosis includes angina, WI, pericarditis, myocarditis, aortic dissection, pleurisy, pneumothorax, PE, pneumonia, pneumomediastinum, esophagitis, esophageal spasm, GERD, perforated esophagus, perforated duodenal/gastric ulcer, pancreatitis, cholecystitis, costochondritis, musculoskeletal, bronchitis, URI, or others. ED COURSE AND MEDICAL DECISION MAKING: MONITOR: Continuous radiographer cardiac catheterization: Order was placed for continuous radiographer cardiac catheterization. Patient was placed on the radiographer cardiac catheterization and continuous pulse ox. Patient was noted to be in normal sinus rhythm at an initial rate of 82 bpm per my interpretation. EKG: EKG was interpreted by myself and Dr. Jiménez as normal sinus rhythm at 70 bpm with incomplete right bundle branch block and some non specific flattening of the T waves in the anterior leads,, but improvement of the T wave abnormalities in the inferior leads. Otherwise no significant acute ST or T wave changes or significant changes from his previous EKG. repeat EKG showed sinus bradycardia at 57 bpm with an incomplete right bundle branch block and new inverted T waves replacing the nonspecific T waves in the lateral leads with new nonspecific T wave abnormalities in the inferior leads. MEDICATIONS GIVEN: Normal saline solution 500 mL bolus. Aspirin 324 mg p.o. chewed. The patient was given sublingual nitroglycerin without any change in his symptoms. Tylenol 1000 mg IV. Pepcid 20 mg IV. Fentanyl 50 mcg IV and Zofran 4 mg IV. The patient declined morphine or the first dose of Zofran that was ordered. INTERPRETATION OF LABS: I interpreted the labs with full lab results as below in the lab section of this note. CBC was normal. Coags were normal. D-dimer was normal. Potassium low at 3.4, but CMP otherwise normal. Magnesium normal. High-sensitivity troponin x 2 were normal. Lipase normal. TSH elevated at 5.698, but free T4 is normal at 1.28. Urinalysis normal. Respiratory bio fire was negative. INTERPRETATION OF IMAGING: Chest x-ray was interpreted by myself as negative for acute cardiopulmonary etiology. Radiology report is still pending. CT scan of the abdomen pelvis with IV contrast was reviewed by myself and read by radiology as per the imaging section of this note. It showed a few tiny fat-containing epigastric and umbilical ventral wall hernias, but no other acute abnormalities. CONSULTATIONS: The on-call hospitalist MDM SUMMARY: I examined the patient. An IV lock was placed and labs were drawn. The patient was given aspirin 324 mg p.o. chewed. The patient was given sublingual nitroglycerin with no change in his symptoms the patient was given Tylenol 1000 mg IV with improvement of the headache from the nitroglycerin, but no change in his chest pain. The patient declined morphine and Zofran, but was later agreeable to fentanyl and Zofran. High-sensitivity troponins x 2 were normal, but the patient does have some dynamic changes on his EKGs. No acute ST elevation. The patient has a history of perforated gastric ulcer in the past. CT scan of the abdomen pelvis without acute abnormalities. The patient had no improvement of his symptoms with IV Pepcid. D-dimer was normal and I do not suspect aortic dissection and do not feel that a CT scan of the chest is needed at this time. I had a meaningful discussion about this patient with Dr. Jiménez who agrees with my assessment and the treatment plan. Due to the patient's continued chest pain with dynamic EKG changes, we feel the patient requires admission for further evaluation and treatment. I spoke with the on- call hospitalist who agreed to admit the patient for further management. Please refer to their dictation for further details. The patient's care was transferred in stable condition. 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 Beliefs That Will Affect Care: Yarsani Yarsani Beliefs: Hindu Current Living Situation: Spouse and Family Feels Safe at Home: Yes Assistive Devices: None Allergies Allergies Allergy/AdvReac Type Severity Reaction Status Date / Time cinnamon Allergy Severe CHEST Verified 01/24/22 23:47 DISCOMFORT Penicillins Allergy Intermediate RASH Verified 01/24/22 23:47 morphine AdvReac Intermediate NAUSEA Verified 01/24/22 23:47 Home Meds Home Medications Medication Instructions Recorded Confirmed famotidine 40 mg tablet 40 mg PO QAM PRN Heartburn 02/28/20 12/27/22 fenofibrate 160 mg tablet 160 mg PO PM 02/28/20 12/27/22 dexlansoprazole 60 mg 60 mg PO BID 07/13/20 12/27/22 capsule,biphase delayed release (Dexilant) omega-3 fatty acids 1,000 mg 1,000 mg PO QPM 01/24/22 12/27/22 capsule atorvastatin 80 mg tablet 80 mg PO QPM 12/27/22 12/27/22 omeprazole 20 mg capsule,delayed 20 mg PO QAM 12/27/22 12/27/22 release Results & Data (ED) Vital Signs Vital Signs - 24 hr 12/27/22 03:01 12/27/22 03:37 12/27/22 03:37 Temperature 36.5 C Temperature Source Temporal Artery Scan Pulse Rate 79 Pulse Rate [Right Finger] 74 Pulse Rate from SpO2 Sensor Respiratory Rate 18 Respiratory Effort / Characteristics Respiratory Depth Respiratory Pattern Blood Pressure 166/84 H Blood Pressure [Left Arm] 146/91 H Blood Pressure Mean 111 Blood Pressure Mean [Left Arm] 109 Blood Pressure Position Sitting Blood Pressure Position [Left Arm] Pulse Oximetry 95 94 Oxygen Delivery Method Room Air Room Air Sepsis Recent Fever Within 48 Hours No Sepsis New/Unexplained Change in Mental Status N/A Sepsis Action Taken by Nursing No Action Required 12/27/22 03:43 12/27/22 03:44 12/27/22 03:45 Temperature Temperature Source Pulse Rate 67 66 Pulse Rate [Right Finger] 68 Pulse Rate from SpO2 Sensor 67 Respiratory Rate 16 Respiratory Effort / Characteristics Respiratory Depth Respiratory Pattern Blood Pressure Blood Pressure [Left Arm] 136/76 Blood Pressure Mean Blood Pressure Mean [Left Arm] 96 Blood Pressure Position Blood Pressure Position [Left Arm] Pulse Oximetry 94 Oxygen Delivery Method Sepsis Recent Fever Within 48 Hours Sepsis New/Unexplained Change in Mental Status Sepsis Action Taken by Nursing 12/27/22 03:50 12/27/22 03:50 12/27/22 03:51 Temperature Temperature Source Pulse Rate 67 Pulse Rate [Right Finger] 70 Pulse Rate from SpO2 Sensor 67 Respiratory Rate 17 Respiratory Effort / Characteristics Respiratory Depth Respiratory Pattern Blood Pressure 109/86 Blood Pressure [Left Arm] 109/86 Blood Pressure Mean 95 Blood Pressure Mean [Left Arm] 93 Blood Pressure Position Blood Pressure Position [Left Arm] Pulse Oximetry 93 Oxygen Delivery Method Sepsis Recent Fever Within 48 Hours Sepsis New/Unexplained Change in Mental Status Sepsis Action Taken by Nursing 12/27/22 03:58 12/27/22 03:58 12/27/22 03:58 Temperature Temperature Source Pulse Rate 65 Pulse Rate [Right Finger] 67 Pulse Rate from SpO2 Sensor 64 Respiratory Rate 14 17 Respiratory Effort / Characteristics Respiratory Depth Normal Respiratory Pattern Blood Pressure 134/70 Blood Pressure [Left Arm] 134/70 Blood Pressure Mean 83 Blood Pressure Mean [Left Arm] 91 Blood Pressure Position Blood Pressure Position [Left Arm] Pulse Oximetry 97 96 Oxygen Delivery Method Room Air Sepsis Recent Fever Within 48 Hours Sepsis New/Unexplained Change in Mental Status Sepsis Action Taken by Nursing 12/27/22 04:00 12/27/22 04:00 12/27/22 04:30 Temperature Temperature Source Pulse Rate 68 66 Pulse Rate [Right Finger] Pulse Rate from SpO2 Sensor 67 65 Respiratory Rate 14 17 Respiratory Effort / Characteristics Respiratory Depth Respiratory Pattern Blood Pressure 139/74 Blood Pressure [Left Arm] Blood Pressure Mean 101 Blood Pressure Mean [Left Arm] Blood Pressure Position Blood Pressure Position [Left Arm] Pulse Oximetry 93 94 Oxygen Delivery Method Sepsis Recent Fever Within 48 Hours Sepsis New/Unexplained Change in Mental Status Sepsis Action Taken by Nursing 12/27/22 04:30 12/27/22 05:00 12/27/22 05:01 Temperature Temperature Source Pulse Rate 65 Pulse Rate [Right Finger] Pulse Rate from SpO2 Sensor 64 Respiratory Rate 14 Respiratory Effort / Characteristics Respiratory Depth Respiratory Pattern Blood Pressure 149/86 H 129/80 Blood Pressure [Left Arm] Blood Pressure Mean 108 90 Blood Pressure Mean [Left Arm] Blood Pressure Position Blood Pressure Position [Left Arm] Pulse Oximetry 95 Oxygen Delivery Method Sepsis Recent Fever Within 48 Hours Sepsis New/Unexplained Change in Mental Status Sepsis Action Taken by Nursing 12/27/22 05:01 12/27/22 05:30 12/27/22 05:30 Temperature Temperature Source Pulse Rate 61 60 Pulse Rate [Right Finger] Pulse Rate from SpO2 Sensor 61 60 Respiratory Rate 14 14 Respiratory Effort / Characteristics Respiratory Depth Respiratory Pattern Blood Pressure 151/83 H Blood Pressure [Left Arm] Blood Pressure Mean 111 Blood Pressure Mean [Left Arm] Blood Pressure Position Blood Pressure Position [Left Arm] Pulse Oximetry 95 96 Oxygen Delivery Method Sepsis Recent Fever Within 48 Hours Sepsis New/Unexplained Change in Mental Status Sepsis Action Taken by Nursing 12/27/22 06:00 12/27/22 06:01 12/27/22 06:01 Temperature Temperature Source Pulse Rate 71 65 Pulse Rate [Right Finger] Pulse Rate from SpO2 Sensor 67 65 Respiratory Rate 18 18 Respiratory Effort / Characteristics Respiratory Depth Respiratory Pattern Blood Pressure 142/102 H Blood Pressure [Left Arm] Blood Pressure Mean 112 Blood Pressure Mean [Left Arm] Blood Pressure Position Blood Pressure Position [Left Arm] Pulse Oximetry 98 95 Oxygen Delivery Method Sepsis Recent Fever Within 48 Hours Sepsis New/Unexplained Change in Mental Status Sepsis Action Taken by Nursing 12/27/22 06:30 12/27/22 06:30 12/27/22 07:00 Temperature Temperature Source Pulse Rate 57 L Pulse Rate [Right Finger] 49 L Pulse Rate from SpO2 Sensor 58 L Respiratory Rate 14 18 Respiratory Effort / Characteristics Respiratory Depth Normal Respiratory Pattern Blood Pressure 125/77 Blood Pressure [Left Arm] 154/86 H Blood Pressure Mean 84 Blood Pressure Mean [Left Arm] 108 Blood Pressure Position Blood Pressure Position [Left Arm] Lying Pulse Oximetry 94 98 Oxygen Delivery Method Room Air Sepsis Recent Fever Within 48 Hours Sepsis New/Unexplained Change in Mental Status Sepsis Action Taken by Nursing 12/27/22 08:34 12/27/22 08:59 Temperature Temperature Source Pulse Rate 58 L Pulse Rate [Right Finger] 58 L Pulse Rate from SpO2 Sensor Respiratory Rate 18 Respiratory Effort / Characteristics Non-Labored Spontaneous Respiratory Depth Normal Respiratory Pattern Regular Blood Pressure Blood Pressure [Left Arm] 137/89 Blood Pressure Mean Blood Pressure Mean [Left Arm] 105 Blood Pressure Position Blood Pressure Position [Left Arm] Lying Pulse Oximetry 94 Oxygen Delivery Method Room Air Sepsis Recent Fever Within 48 Hours Sepsis New/Unexplained Change in Mental Status Sepsis Action Taken by Nursing Laboratory Data 12/27/22 03:17 12/27/22 03:17 Lab Results 12/27/22 12/27/22 12/27/22 Range/Units 03:12 03:17 03:25 WBC 6.66 (4.8-10.8) K/ul RBC 4.98 (4.70-6.10) M/uL Hgb 14.7 (14.0-18.0) g/dl Hct 43.2 (42.0-52.0) % MCV 86.7 (80.0-100.0) fL MCH 29.5 (25.0-34.0) pg MCHC 34.0 (32.0-36.0) g/dL RDW Std Deviation 39.8 (36.4-46.3) fL RDW Coeff of Sarah 12.7 (11.5-14.5) % Plt Count 161 (130-400) K/uL MPV 10.0 (9.4-12.4) fL Immature Gran % (Auto) 0.2 % Neut % (Auto) 47.0 % Lymph % (Auto) 43.2 % [place] % (Auto) 7.1 % Eos % (Auto) 1.7 % Baso % (Auto) 0.8 % Neut # (Auto) 3.14 (1.40-6.50) K/uL Lymph # (Auto) 2.88 (1.20-3.40) K/uL [place] # (Auto) 0.47 (0.11-0.59) K/uL Eos # (Auto) 0.11 (0.00-0.50) K/uL Baso # (Auto) 0.05 (0.00-0.20) K/uL Immature Gran # (Auto) 0.01 (0.01-0.20) K/uL PT 11.0 (9.0-12.0) Seconds INR 1.0 (0.9-1.1) APTT 25.0 (21.0-31.0) Seconds PTT Ratio 0.9 D-Dimer 280 (0-500) ug/L FEU Sodium 140 (136-145) mmol/L Potassium 3.4 L (3.5-5.1) mmol/L Chloride 105 (98-107) mmol/L Carbon Dioxide 29 (21-32) mmol/L Anion Gap 6 (3-11) BUN 18 (6-23) mg/dl Creatinine 0.92 (0.6-1.4) mg/dl Est Cr Clr Drug Dosing 115.7 ml/min Est GFR ( Amer) 111.2 ml/min Est GFR (Non-Af Amer) 96.0 ml/min BUN/Creatinine Ratio 19.6 (10-20) Glucose 91 (70-99(Fasting)) mg/dl Calcium 9.7 (8.6-10.3) mg/dl Magnesium 2.0 (1.7-2.4) mg/dl Total Bilirubin 0.5 (0.2-1.0) mg/dl AST 25 (13-39) U/L ALT 38 (7-52) U/L Alkaline Phosphatase 56 (34-104) U/L Troponin I High Sens < 2.3 (0-20) pg/ml Total Protein 7.2 (6.0-8.3) gm/dl Albumin 4.5 (3.4-5.0) gm/dl Globulin 2.7 (2.5-4.0) gm/dl Albumin/Globulin Ratio 1.7 (0.9-2) Lipase 39 (11-82) U/L TSH 5.698 H (0.300-4.500) uIu/ml Free T4 1.28 (0.61-1.60) ng/dl Urine Color Yellow Urine Appearance Clear (Clear) Urine pH 6.5 (4.5-7.5) Ur Specific [place] 1.013 (1.000-1.030) Urine Protein Negative (Negative) Urine Glucose (UA) Negative (Negative) Urine Ketones Negative (Negative) Urine Blood Negative (Negative) Urine Nitrite Negative (Negative) Urine Bilirubin Negative (Negative) Urine Urobilinogen Negative (Negative) Ur Leukocyte Esterase Negative (Negative) Adenovirus (PCR) Not Detected (NotDetected) B. pertussis DNA (PCR) Not Detected (NotDetected) B.parapertussis DNA PCR Not Detected (NotDetected) C. pneumoniae DNA (PCR) Not Detected (NotDetected) Coronavirus OC43 (PCR) Not Detected (NotDetected) Coronavirus HKU1 (PCR) Not Detected (NotDetected) Coronavirus 229E (PCR) Not Detected (NotDetected) SARS-CoV-2 (PCR) Not Detected (NotDetected) Coronavirus NL63 (PCR) Not Detected (NotDetected) Human Metapneumovir PCR Not Detected (NotDetected) Influenza Type A (PCR) Not Detected (NotDetected) Influenza Type B (PCR) Not Detected (NotDetected) M. pneumoniae (PCR) Not Detected (NotDetected) Parainfluenza 1 (PCR) Not Detected (NotDetected) Parainfluenza 2 (PCR) Not Detected (NotDetected) Parainfluenza 3 (PCR) Not Detected (NotDetected) Parainfluenza 4 (PCR) Not Detected (NotDetected) RSV (PCR) Not Detected (NotDetected) Entero/Rhino (PCR) Not Detected (NotDetected) 12/27/22 Range/Units 05:49 WBC (4.8-10.8) K/ul RBC (4.70-6.10) M/uL Hgb (14.0-18.0) g/dl Hct (42.0-52.0) % MCV (80.0-100.0) fL MCH (25.0-34.0) pg MCHC (32.0-36.0) g/dL RDW Std Deviation (36.4-46.3) fL RDW Coeff of Sarah (11.5-14.5) % Plt Count (130-400) K/uL MPV (9.4-12.4) fL Immature Gran % (Auto) % Neut % (Auto) % Lymph % (Auto) % [place] % (Auto) % Eos % (Auto) % Baso % (Auto) % Neut # (Auto) (1.40-6.50) K/uL Lymph # (Auto) (1.20-3.40) K/uL [place] # (Auto) (0.11-0.59) K/uL Eos # (Auto) (0.00-0.50) K/uL Baso # (Auto) (0.00-0.20) K/uL Immature Gran # (Auto) (0.01-0.20) K/uL PT (9.0-12.0) Seconds INR (0.9-1.1) APTT (21.0-31.0) Seconds PTT Ratio D-Dimer (0-500) ug/L FEU Sodium (136-145) mmol/L Potassium (3.5-5.1) mmol/L Chloride (98-107) mmol/L Carbon Dioxide (21-32) mmol/L Anion Gap (3-11) BUN (6-23) mg/dl Creatinine (0.6-1.4) mg/dl Est Cr Clr Drug Dosing ml/min Est GFR ( Amer) ml/min Est GFR (Non-Af Amer) ml/min BUN/Creatinine Ratio (10-20) Glucose (70-99(Fasting)) mg/dl Calcium (8.6-10.3) mg/dl Magnesium (1.7-2.4) mg/dl Total Bilirubin (0.2-1.0) mg/dl AST (13-39) U/L ALT (7-52) U/L Alkaline Phosphatase (34-104) U/L Troponin I High Sens < 2.3 (0-20) pg/ml Total Protein (6.0-8.3) gm/dl Albumin (3.4-5.0) gm/dl Globulin (2.5-4.0) gm/dl Albumin/Globulin Ratio (0.9-2) Lipase (11-82) U/L TSH (0.300-4.500) uIu/ml Free T4 (0.61-1.60) ng/dl Urine Color Urine Appearance (Clear) Urine pH (4.5-7.5) Ur Specific [place] (1.000-1.030) Urine Protein (Negative) Urine Glucose (UA) (Negative) Urine Ketones (Negative) Urine Blood (Negative) Urine Nitrite (Negative) Urine Bilirubin (Negative) Urine Urobilinogen (Negative) Ur Leukocyte Esterase (Negative) Adenovirus (PCR) (NotDetected) B. pertussis DNA (PCR) (NotDetected) B.parapertussis DNA PCR (NotDetected) C. pneumoniae DNA (PCR) (NotDetected) Coronavirus OC43 (PCR) (NotDetected) Coronavirus HKU1 (PCR) (NotDetected) Coronavirus 229E (PCR) (NotDetected) SARS-CoV-2 (PCR) (NotDetected) Coronavirus NL63 (PCR) (NotDetected) Human Metapneumovir PCR (NotDetected) Influenza Type A (PCR) (NotDetected) Influenza Type B (PCR) (NotDetected) M. pneumoniae (PCR) (NotDetected) Parainfluenza 1 (PCR) (NotDetected) Parainfluenza 2 (PCR) (NotDetected) Parainfluenza 3 (PCR) (NotDetected) Parainfluenza 4 (PCR) (NotDetected) RSV (PCR) (NotDetected) Entero/Rhino (PCR) (NotDetected) Administered Medications Nitroglycerin (Nitroglycerin Sl 0.4 Mg/Tab Tab) 0.4 mg SL Q5M PRN PRN Reason: Chest Pain Stop: 01/26/23 03:21 Last Admin: 12/27/22 03:50 Dose: 0.4 mg Documented By: Admin: 12/27/22 03:43 Dose: 0.4 mg Documented By: Admin: 12/27/22 03:35 Dose: 0.4 mg Documented By: BRITT Discontinued Medications Aspirin (Aspirin Chew 324 Mg) 324 mg PO NOW STA Stop: 12/27/22 03:23 Last Admin: 12/27/22 03:34 Dose: 324 mg Documented By: BRITT Fentanyl Citrate (Fentanyl Citrate Pf 100 Mcg/2 Ml Vial) 50 mcg IV NOW STA Stop: 12/27/22 07:48 Last Admin: 12/27/22 07:57 Dose: 50 mcg Documented By: CPB Sodium Chloride (Nss) 500 mls @ 999 mls/hr IV .Q31M STA Stop: 12/27/22 03:52 Last Infusion: 12/27/22 04:48 Dose: Infused Documented By: Admin: 12/27/22 03:35 Dose: 999 mls/hr Documented By: BRITT Acetaminophen (Ofirmev) 1,000 mg in 100 mls @ 400 mls/hr IV NOW STA Stop: 12/27/22 05:09 Last Infusion: 12/27/22 05:25 Dose: Infused Documented By: MWMarybel Admin: 12/27/22 05:10 Dose: 400 mls/hr Documented By: BRITT Famotidine (Pepcid 20mg Iv Push) 20 mg in 5 mls @ 2.5 mls/min IV NOW STA Stop: 12/27/22 04:57 Last Admin: 12/27/22 05:09 Dose: 2.5 mls/min Documented By: BRITT Ioversol (Optiray 320 500ml) 100 ml IV ONCE ONE Stop: 12/27/22 05:21 Last Admin: 12/27/22 05:20 Dose: 85 ml Documented By: CAIN Morphine Sulfate (Morphine Sulfate 4 Mg/Ml 1 Ml Carp\\Vial) 4 mg IV NOW STA Stop: 12/27/22 06:56 Last Admin: 12/27/22 07:34 Dose: Not Given Documented By: CPB Ondansetron HCl (Ondansetron Inj 2 Mg/Ml 2 Ml Vial) 4 mg IV NOW STA Stop: 12/27/22 06:56 Last Admin: 12/27/22 07:34 Dose: Not Given Documented By: CPB Ondansetron HCl (Ondansetron Inj 2 Mg/Ml 2 Ml Vial) 4 mg IV NOW STA Stop: 12/27/22 07:48 Last Admin: 12/27/22 07:58 Dose: 4 mg Documented By: CPB Potassium Chloride (Potassium Chloride Crtab 20 Meq Tabcr) 40 meq PO NOW STA Stop: 12/27/22 07:48 Last Admin: 12/27/22 07:59 Dose: 40 meq Documented By: CPB Imaging Data Radiologist's Impression: Chest X-Ray 12/27/22 03:22 XR chest 1V portable CLINICAL HISTORY: Chest pain, nonspecific TECHNIQUE: Single frontal radiograph of the chest was obtained. Comparison: Comparison is made to chest radiograph 07/13/2020 FINDINGS: No lines and tubes are seen. The cardiomediastinal silhouette is normal. The lungs are clear. No evidence of pleural effusion or pneumothorax. IMPRESSION: No acute chest disease. ACT 112: Negative or not required by law. Electronically signed by: Hamilton Matias M.D. 12/27/2022 7:03 AM Abdomen/Pelvis CT 12/27/22 04:55 Exam(s): CT ABDOMEN + PELVIS With Contrast IV Amt: 85 ML OPTIRAY 320 EXAM: CT Abdomen and Pelvis With Intravenous Contrast CLINICAL HISTORY: Reason for exam: Abdominal pain. TECHNIQUE: Axial computed tomography images of the abdomen and pelvis with intravenous contrast. CTDI is 28.08 mGy and DLP is 1454.07 mGy-cm. Automated exposure control was utilized for the study. A dose lowering technique was utilized adhering to the principles of ALARA. CONTRAST: Patient received 85 ML OPTIRAY 320 of IV contrast COMPARISON: No relevant prior studies available. FINDINGS: Lung bases: Unremarkable. No mass. No consolidation. ABDOMEN: Liver: Unremarkable. No mass. Gallbladder and bile ducts: Unremarkable. No calcified stones. No ductal dilation. Pancreas: Unremarkable. No mass. No ductal dilation. Spleen: Unremarkable. No splenomegaly. Adrenals: Unremarkable. No mass. Kidneys and ureters: Unremarkable. No solid mass. No hydronephrosis. Stomach and bowel: Unremarkable. No obstruction. No mucosal thickening. PELVIS: Appendix: No findings to suggest acute appendicitis. Bladder: Unremarkable. No mass. Reproductive: Unremarkable as visualized. ABDOMEN and PELVIS: Intraperitoneal space: Unremarkable. No free air. No significant fluid collection. Bones/joints: No acute fracture. No dislocation. Soft tissues: A few tiny fat-containing epigastric and. Umbilical ventral wall hernias up to 1.9 cm in maximal transverse dimension. Vasculature: Unremarkable. No abdominal aortic aneurysm. Lymph nodes: Unremarkable. No enlarged lymph nodes. IMPRESSION: Abdominal wall abnormalities as described. Electronically signed by: Pavel Brown MD 12/27/22 06:47 AM Discharge Plan Visit Data Chief Complaint: Cardiac Assessment Stated Complaint: CHEST PAIN/DIZZINESS ED Provider: David Jiménez ED Midlevel Provider: Brasher,Dara A. Discharge Problem: Substernal chest pain Patient Disposition: Admitted As Inpatient Condition: Good Forms Stand Alone Forms: My [facility] [employer] Prescriptions Prescriptions: No Action famotidine 40 mg tablet 40 mg PO QAM PRN (Reason: Heartburn) fenofibrate 160 mg tablet 160 mg PO PM dexlansoprazole [Dexilant] 60 mg Capsule,Biphase Delayed Releas 60 mg PO BID omega-3 fatty acids 1,000 mg Capsule 1,000 mg PO QPM atorvastatin 80 mg tablet 80 mg PO QPM Rx Instructions: Patient hasn't started new dosage yet and hasn't picked up from the pharmacy He took his last Atorvastatin 40mg last night 12/26/2022 omeprazole 20 mg capsule,delayed release(DR/EC) 20 mg PO QAM Referrals Referrals: Dayana Ortiz MD [Primary Care Provider] -
[2022-12-27] MEDS ORDERED: SODIUM CHLORIDE 0.9% 500 ML IV STA (03:22)
[2022-12-27] MEDS ORDERED: ASPIRIN CHEW 324 MG PO STA (03:22)
[2022-12-27 03:35] LABS: Appearance Urine Clear (Clear); Bilirubin Urine Negative (Negative); Blood Urine Negative (Negative); Color Urine Yellow; Glucose Urine UA Negative (Negative); Ketones Urine Negative (Negative); Leukocyte Esterase Urine Negative (Negative); Nitrite Urine Negative (Negative); Protein Urine Negative (Negative); Specific Gravity Urine 1.013 (1.000-1.030); Urobilinogen Urine Negative (Negative); pH Urine 6.5 (4.5-7.5)
[2022-12-27] MEDS: NITROGLYCERIN SL 0.4 MG/TAB TAB SL PRN ×3 (03:35→03:50)
[2022-12-27 04:12] LABS: Basophils # (auto) 0.05 K/uL (0.00-0.20); Basophils % (auto) 0.8 %; Eosinophils # (auto) 0.11 K/uL (0.00-0.50); Eosinophils % (auto) 1.7 %; Hematocrit (blood only) 43.2 % (42.0-52.0); Hemoglobin 14.7 g/dl (14.0-18.0); Immature Granulocytes # (auto) 0.01 K/uL (0.01-0.20); Immature Granulocytes % (auto) 0.2 %; Lymphocytes # (auto) 2.88 K/uL (1.20-3.40); Lymphocytes % (auto) 43.2 %; Mean Corpuscular Hemoglobin 29.5 pg (25.0-34.0); Mean Corpuscular Volume 86.7 fL (80.0-100.0); Monocytes # (auto) 0.47 K/uL (0.11-0.59); Monocytes % (auto) 7.1 %; Neutrophils # (auto) 3.14 K/uL (1.40-6.50); Platelet Count 161 K/uL (130-400); RDW Coefficient of Variation 12.7 % (11.5-14.5); RDW Standard Deviation 39.8 fL (36.4-46.3); Red Blood Count 4.98 M/uL (4.70-6.10); White Blood Count 6.66 K/ul (4.8-10.8)
[2022-12-27 04:25] LABS: D Dimer 280 ug/L FEU (0-500); Partial Thromboplastin Ratio 0.9
[2022-12-27 04:28] LABS: Alanine Aminotransferase 38 U/L (7-52); Albumin Globulin Ratio 1.7 (0.9-2); Albumin Level 4.5 gm/dl (3.4-5.0); Alkaline Phosphatase 56 U/L (34-104); Anion Gap 6 (3-11); Aspartate Aminotransferase 25 U/L (13-39); BUN Creatinine Ratio 19.6 (10-20); Bilirubin,Total 0.5 mg/dl (0.2-1.0); Blood Urea Nitrogen 18 mg/dl (6-23); Calcium 9.7 mg/dl (8.6-10.3); Carbon Dioxide 29 mmol/L (21-32); Chloride 105 mmol/L (98-107); Creatinine Clr Calc Pharmacy 115.7 ml/min; Est GFR (African American) 111.2 ml/min; Globulin 2.7 gm/dl (2.5-4.0); Glucose 91 mg/dl (70-99(Fasting)); Lipase 39 U/L (11-82); Potassium 3.4 mmol/L (3.5-5.1); Sodium 140 mmol/L (136-145); Total Protein 7.2 gm/dl (6.0-8.3)
--- OUTSIDE RECORDS SUMMARY | 2022-12-27 04:28 | External Medical Summary | Summary of Care ---
Author Name Unknown Organization [facility] Address [address] [place] [address] Phone [phone] Care Team Providers Care Catalyst Supervisor Name Role Phone Dayana Ortiz MD Primary Care Provider + Reason for Visit * Reason Comments Follow Up Encounter Details Date Type Department Care Team (Latest Contact Info) Description 12/08/2022 8:40 AM EDT Office Visit Gastroenterology, [facility] [address] [place] [address] Thuy Knott, DO [address] [place] [address] Gastroesophageal reflux disease without esophagitis*; Koch's esophagus without dysplasia Allergies Active Allergy Reactions Criticality Noted Date Comments Cinnamon Other (Please comment) 04/24/2016 chest tightness Morphine Nausea/vomiting Medium 04/30/2012 Severe nausea and vomiting Penicillins Rash 11/23/1999 Other reaction(s): rash documented as of this encounter (statuses as of 12/08/2022) Medications Medication Sig Dispensed Refills Start Date End Date Status acetaminophen (TYLENOL) 500 MG TabletIndications: Pain of both shoulder joints,Spasm of muscle Take 2 Tabs by mouth every 8 hours as needed for Pain or Fever. 100 Tab 0 12/01/2016 Active Rolla-3 Fatty Acids (FISH OIL) 1000 MG CapsuleIndications :takes in the evening Take 1 Capsule by mouth in the morning. 0 Active CPAP every night at bedtime. 0 Active hydrOXYzine HCl 25 MG Oral TabletIndications: KENRICK (generalized anxiety disorder) TAKE ONE TABLET BY MOUTH THREE TIMES DAILY NEEDED FOR ANXIETY 60 Tablet 2 03/10/2021 Active Omeprazole 20 MG Oral Capsule Delayed Release (PriLOSEC) TAKE ONE CAPSULE BY MOUTH TWICE DAILY 60 Capsule 5 11/28/2021 Active Atorvastatin Calcium 80 MG Oral Tablet (Lipitor)Indicatio ns:Hyperlipidemia with target LDL less than 100 TAKE ONE TABLET BY MOUTH EVERY DAY 90 Tablet 3 01/11/2022 Active Dexlansoprazole 30 MG Oral Capsule Delayed Release Take 1 Capsule by mouth in the morning and 1 Capsule in the evening. 180 Capsule 3 05/30/2022 Active Fenofibrate 160 MG Oral Tablet (Lofibra)Indicatio ns:Hyperlipidemia with target LDL less than 100 TAKE ONE TABLET BY MOUTH EVERY DAY WITH MEAL 30 Tablet 5 07/30/2022 Active Ventolin HFA 108 (90 Base) MCG/ACT Inhalation Aerosol SolutionIndication s:Influenza A Inhale 2 Puffs by mouth every 4 hours as needed for Wheezing. 7 g 1 10/12/2022 Active Fluticasone Propionate 50 MCG/ACT Nasal Suspension (Flonase)Indicatio ns:Chronic maxillary sinusitis Administer 2 Sprays into each nostril in the morning. 16 g 3 10/12/2022 Active predniSONE 10 MG Oral Tablet (Deltasone) 4 tabs for 2 days, 3 tabs for 2 days, 2 tabs for 2 days 1 tab for 2 days with food 20 Tablet 0 11/02/2022 Active Additional Information Patient not taking.Reported on 12/08/2022 documented as of this encounter (statuses as of 12/08/2022) Active Problems Problem Noted Date Diagnosed Date Moderate episode of recurrent major depressive d isorder 04/12/2021 Allergic rhinitis 07/18/2018 CSA (central sleep apnea) 07/18/2018 Adhesive capsulitis of left shoulder 12/11/2016 Status post Kenrick fundoplication 12/01/2016 Hyperlipidemia with target LDL less than 100 Family history of ischemic heart disease 016 LATRICIA (obstructive sleep apnea) 04/28/2014 Overview: CPAP 10 cwp (to improve tolerance, pressures increased) Acquired deformity of nose 04/01/2010 Hypertrophy of nasal turbinates 04/01/2010 NONALLERGIC RHINITIS 10/05/2009 Deviated nasal septum 10/05/2009 Chronic sinusitis 10/05/2009 Hypersomnia with sleep apnea 04/20/2009 ADVANCE DIRECTIVE INFORMATION 05/20/2007 Overview: No, Advance Directive brochure given to patient. Gastroparesis 10/26/2005 Reflux esophagitis 05/10/2005 Anal fissure 07/01/2003 HISTORY OF TOBACCO USE 03/18/2003 Esophageal reflux 11/16/2000 Other form of scoliosis, unspecified spinal jose luis on Overview: ICD-10 update of inactive term Gastric ulcer Overview: ruptured Migraine variant documented as of this encounter (statuses as of 12/08/2022) Resolved Problems Problem Noted Date Diagnosed Date Resolved Date Dyslipidemia, goal to be determined 01/12/2009 03/26/2012 Overview: Per Lipid Taxonomy. Mixed dyslipidemia 08/29/2003 9 Overview: Per Lipid Taxonomy. ANGINA PECTORIS NEC-NOS 07/01/2003 09/0 07/2004 documented as of this encounter (statuses as of 12/08/2022) Immunizations Name Administration Dates Next Due SEASONAL INFLUENZA, PF, 6 M & Above, IM , (FLULAVAL or FLUZONE) 10/12/2022,02/09/2022,03/09/2020,2018,12/01/2016 Seasonal Influenza, Quadriva lent, No Preserve, IM 01/28/2016 Seasonal Influenza, Split, I IV3, With Preserve, Inj 03/15/2012,12/27/2010 TD, Preservative Free 06/06/2018 TDAP (age 11 and older)(Adacel) 10/16/2007 Zoster Vaccine Recombinant (Shingrix) 09/23/2021 ,06/23/2021 documented as of this encounter Social History Tobacco Use Types Packs/Day Years Used Date Smoking Tobacco: Never Smokeless Tobacco: Former Snuff, Chew Quit: 12/20/2001 Comments:no passive smoke Alcohol Use Standard Drinks/Week Comments Yes 30 (1 standard drink = 0.6 oz pu re alcohol) AUDIT-C Answer Date Recorded Q1: How often do you have a drink containing alcohol? 4 or more times a week 03/14/2021 Q2: How many drinks containi ng alcohol do you have on a typical day when you are drinking? 3 or 4 Q3: How often do you have si x or more drinks on one occasion? Monthly 03/14/2021 PHQ-2 Answer Date Recorded PHQ Adult Total Score 0 10/12/2022 Hunger Vital Sign Answer Date Recorded Worried About Running Out of Food in the Last Ye ar Never true 09/04/2019 Ran Out of Food in the Last Year Never true 09/04/2019 Sex and Gender Information Value Date Recorded Sex Assigned at Male 06/06/2018 11:16 AM EDT Gender Identity Male 06/06/2018 11:16 AM EDT Sexual Orientation Straight 06/06/2018 11 :16 AM EDT Job Start Date Occupation Industry Not on file Not on file Not on file documented as of this encounter Last Filed Vital Signs Vital Sign Reading Time Taken Comments Blood Pressure 126/64 12/08/2022 8:37 AM EDT Pulse 63 12/08/2022 8:37 AM EDT Temperature 35.7 C (96.3 F) 12/08/2022 8:37 AM ED T Respiratory Rate - - Oxygen Saturation - - Inhaled Oxygen Concentration - - Weight 107.7 kg (237 lb 6.4 oz) 12/08/2022 8:37 AM EDT Height - - Body Mass Index 35.06 10/19/2022 2:09 PM EDT documented in this encounter Progress Notes * Thuy Knott, DO - 12/08/2022 8:51 AM EDT CC: GERD HPI: Recall that Mr. Souleymane Mead is a 52 yr old male with a hx of perforated gastric ulcer (tx with abd surgery around 2009 at [place]), migraines, hemorrhoids, anal fissure, GERD/Koch's, gastroparesis. He is S/P Lap Kenrick [place] [address] Perez. Recent stressful home events. He lost his son. Still having problems sleeping. Wakes up in middle of night and mind racing. Taking melatonin with minimal relief Has LATRICIA - has a new nasal mask and using his CPAP His heartburn has been better - on Dexilant BID No dysphagia ROS: No lightheadedness, dizziness worsened headaches and neck pain, some recent worsened HTN No fevers, chills, sweats No vision loss, eye pain, redness No oral ulcers No chest pain, palpitations, syncope No cough, shortness of breath, exertional dyspnea No rashes or other skin lesions No new joint pain, swelling, myalgias No edema No bleeding tendencies or excessive bruising 12 systems reviewed and negative except as noted Most recent EGD 09/2020: - Koch's and gastritis GES 2019: normal. HIDA with CCK 2019: rapid gallbladder emptyping (95% EF). EXAM: BP 126/64 (BP Site: Left Arm, BP Position: Sitting, BP Cuff Size: Large) | Pulse 63 | Temp 35.7 C(96.3 F) (Tympanic) | Wt 107.7 kg (237 lb 6.4 oz) | BMI 35.06 kg/m | BSA 2.29 m GENERAL: well developed and well nourished in no acute distress SKIN: no rashes, ulcers, or spider angiomata HEENT: normocephalic, sclera clear, pharynx normal NECK: supple, no lymphadenopathy, no masses or thyroid enlargement LUNGS: clear to auscultation anterior and posterior HEART: regular rate & rhythm, no murmurs and no gallops ABDOMEN: normo-active bowel sounds, soft, minimal RLQ tenderness on palpation, non-distended no masses, no hepatosplenomegaly, no rebound or guarding, no bruits EXTREMITIES: no palmar erythema, no edema, no skin discoloration, no clubbing, no cyanosis NEURO: no lateralizing findings, Sensory/Motor grossly normal IMPRESSION/ RECOMMENDATIONS: 52 year old male with GERD fairly well controlled on Dexilant BID. Heartburn is reasonably controlled on current regimen. Gastroesophageal reflux disease without esophagitis Koch's esophagus without dysplasia - continue current reflux medications. - Repeat EGD 2023 Thuy Knott, Gastroenterology I spent a total of 25 minutes on the date of service in review of patient's record, and previously obtained information in person and appropriate medical visit, discussion and education of plan, withpatient and/or caregiver, placing orders for tests/referral/procedures as medically necessary and documentation of pertinent clinical information in patient's medical records for their visit today. documented in this encounter Nursing Notes * Lesia Zafar LPN - 12/08/2022 8:36 AM EDT 6 month ret. Patient presents alone. C/o early AM nausea. Taking dexlansoprazole, omeprazole. documented in this encounter Plan of Treatment Upcoming Encounters Date Type Department Care Team (Late st Contact Info) Description 02/23/2023 11:00 AM EST Office Visit Sleep Disorders Ctr [facility] [address] [place] [phone] Evita Gunn, [address] [place] [address] 04/09/2023 8:00 AM EST Laboratory Laboratory [address] [place] [phone] [address] [place] [address] 04/12/2023 8:00 AM EST Office Visit General Internal Medicine [facility] [place] [address] [facility] [place] [address] Dayana Ortiz MD [address] [place] [address] 06/05/2023 8:40 AM EDT Office Visit Gastroenterology, [facility] [address] [address] Thuy Knott DO [address] [place] [address] Scheduled Procedures Name Priority Associated Diagnoses Date/Ti me COLONOSCOPY FLEXIBLE PROXIMAL DIAGNOSTIC Recall History of colon polyps Health Maintenance Due Date Last Done Comments COVID-19 Vaccine (#1) 1970 Depression Screening 10/13/2023 10/12/2022 COLONOSCOPY-EVERY 3 YRS AGES 18-100 02/28/2025 02/28/2022, 02/28/2022, 10/18/2018, Additional history exists Diabetes Screening 10/31/2025 10/31/2022, 0 05/30/2022, 05/30/2022, Additional history exists Lipid Panel 10/11/2027 10/10/2022, 05/07, 04/25/2021, Additional history exists DTaP,Tdap,and Td Vaccines (5 - Td or Tdap) 06/06/2028 06/06/2018, 08/26/2015, 08/26/2015, Additional history exists Hepatitis C Screening Completed 03/15/2018, 010 Zoster Vaccines Completed 09/23/2021, 06/23/2021 Influenza Vaccine (FLU shot) Completed 08/2022, 02/09/2022, 03/09/2020, Additional history exists GARDASIL-HPV IMMUNIZATION SERIES Aged Out No longer eligible based on patient's age to complete this topic MENINGOCOCCAL (MENACTRA/MENVEO) Aged Out No longer eligible based on patient's age to complete this topic Pneumococcal Vaccine: Pediatrics (0 to 5 Years) and At-Risk Patients (6 to 64 Years) Aged Out No longer eligible based on patient's age to complete this topic documented as of this encounter Medical Devices Not on filedocumented as of this encounter Visit Diagnoses Diagnosis Gastroesophageal reflux disease without esophagitis- Primary Esophageal reflux Koch's esophagus without dysplasia Koch's esophagus documented in this encounter Care Teams Catalyst Supervisor Relationship Specialty Start Date End Date Dayana Ortiz MD [address] [facility] [place] [address] PCP - General 10/16/07 documented as of this encounter"
--- OUTSIDE RECORDS SUMMARY | 2022-12-27 04:29 | External Medical Summary | Summary of Care ---
Author Name Unknown Organization [facility] Address [address] [place] [address] Phone [phone] Care Team Providers Care Coal Chute Worker Name Role Phone Dayana Ortiz MD Primary Care Provider + Encounter Details Date Type Department Care Team Description 10/20/2022 Telephone Pulmonary Medicine, [facility] [address] [place] [address] Evita Gunn DO [address] [place] [address] Allergies Active Allergy Reactions Severity Noted Date Comments Cinnamon Other (Please comment) 04/24/2016 chest tightness Morphine Nausea/vomiting Medium 04/30/2012 Severe nausea and vomiting Penicillins Rash 11/23/1999 Other reaction(s): rash documented as of this encounter (statuses as of 10/20/2022) Medications Medication Sig Dispensed Refills Start Date End Date Status acetaminophen (TYLENOL) 500 MG TabletIndications: Pain of both shoulder joints,Spasm of muscle Take 2 Tabs by mouth every 8 hours as needed for Pain or Fever. 100 Tab 0 12/01/2016 Active Carlisle-3 Fatty Acids (FISH OIL) 1000 MG CapsuleIndications :takes in the evening Take 1 Capsule by mouth in the morning. 0 Active Coenzyme Q10 (CO Q-10) 100 MG CAPSIndications:ta kes in the evening Take by mouth. 0 Ac tive CPAP every night at bedtime. 0 Active [...] the morning. 16 g 3 10/12/2022 Active documented as of this encounter (statuses as of 10/20/2022) Active Problems Problem Noted Date Moderate episode of recurrent major depr essive disorder 04/12/2021 Allergic rhinitis 07/18/2018 CSA (central sleep apnea) 07/18/2018 Adhesive capsulitis of left shoulder 07/2016 Status post Kenrick fundoplication 2016 Hyperlipidemia with target LDL less than 100 11/30/2015 Family history of ischemic heart disease 11/30/2015 LATRICIA (obstructive sleep apnea) 04/28/2014 Overview: CPAP 10 cwp (to improve tolerance, pressures increased) Acquired deformity of nose 04/01/2010 Hypertrophy of nasal turbinates 04/01/19 11 NONALLERGIC RHINITIS 10/05/2009 Deviated nasal septum 10/05/2009 Chronic sinusitis 10/05/2009 Hypersomnia with sleep apnea 04/20/2009 ADVANCE DIRECTIVE INFORMATION 05/20/2007 Overview: No, Advance Directive brochure given to patient. Gastroparesis 10/26/2005 Reflux esophagitis 05/10/2005 Anal fissure 07/01/2003 HISTORY OF TOBACCO USE 03/18/2003 Esophageal reflux 11/16/2000 Other form of scoliosis, unspecified spi nal region Overview: ICD-10 update of inactive term Gastric ulcer Overview: ruptured Migraine variant documented as of this encounter (statuses as of 10/20/2022) Resolved Problems Problem Noted Date Resolved Date Dyslipidemia, goal to be determined 01/12/2009 03/26/2012 Overview: Per Lipid Taxonomy. Mixed dyslipidemia 08/29/2003 01/12/2009 Overview: Per Lipid Taxonomy. ANGINA PECTORIS NEC-NOS 07/01/2003 10/12/19 05 documented as of this encounter (statuses as of 10/20/2022) Immunizations Name Administration Dates Next Due Seasonal Influenza, PF, 6 mo ns & Above, IM , (Flulaval) 10/12/2022,02/09/2022,03/09/2020,2018,12/01/2016 Seasonal Influenza, Quadriva lent, No Preserve, [...] drink = 0.6 oz pu re alcohol) Alcohol Habits Answer Date Recorded How often do you have a drin k containing alcohol? 4 or more times a week 03/14/2021 How many drinks containing a lcohol do you have on a typical day when you are drinking? 3 or 4 03/14/2021 How often do you have six or more drinks on one occasion? Monthly 03/14/2021 Food Insecurity Answer Date Recorded Within the past 12 months, y ou worried that your food would run out before you got money to buy more. Never true 09/04/2019 Within the past 12 months, t he food you bought just didn't last and you didn't have money to get more. Never true 09/04/2019 Sex Assigned at Date Recorded Male 06/06/2018 11:16 AM EDT Job Start Date Occupation Industry Not on file Not on file Not on file documented as of this encounter Miscellaneous Notes * Telephone Encounter - Edwardo Purdy - 10/20/2022 9:29 AM EDT Orders in 10/20 documented in this encounter Plan of Treatment Upcoming Encounters Date Type Specialty Care Team Description 12/08/2022 Office Visit Gastroenterology Thuy Knott, DO [address] [place] [address] 02/23/2023 Office Visit Sleep Disorders Evita Gunn, DO [address] [place] [address] 04/09/2023 Laboratory Laboratory [address] [place] [address] 04/12/2023 Office Visit Internal Medicine Dayana Ortiz MD [address] [facility] [place] [address] Scheduled Procedures Name Priority Associated Diagnoses Date/Ti me COLONOSCOPY FLEXIBLE PROXIMAL DIAGNOSTIC Recall History of colon polyps Health Maintenance Due Date Last Done Comments Hepatitis B (1 of 3 - 3-dose series) 1970 COVID-19 Vaccine (#1) 1970 Depression Screening 10/13/2023 10/12/2022 COLONOSCOPY-EVERY 3 YRS AGES 18-100 02/28/2025 02/28/2022, 02/28/2022, 10/18/2018, Additional history exists Diabetes Screening 05/30/2025 05/30/2022, 0 05/30/2022, 04/25/2021, Additional history exists Lipid Panel 10/11/2027 10/10/2022, [...] Not on filedocumented as of this encounter Care Teams Coal Chute Worker Relationship Specialty Start Date End Date Dayana Ortiz MD [address] [place] [address] PCP - General 10/16/07 documented as of this encounter
--- OUTSIDE RECORDS SUMMARY | 2022-12-27 04:29 | External Medical Summary | Summary of Care ---
Author Name Unknown Organization [facility] Address [address] [place] [address] Phone [phone] Care Team Providers Care Digital Learning Platforms Manager Name Role Phone Dayana Ortiz MD Primary Care Provider + Reason for Visit * Reason Onset Date Comments Advice 11/01/2022 Encounter Details Date Type Department Care Team Description 11/01/2022 Telephone General Internal Medicine [facility] [address] [facility] [place] [address] Dayana Ortiz MD [address] [place] [address] Advice Allergies Active Allergy Reactions Severity Noted Date Comments Cinnamon Other (Please comment) 04/24/2016 chest tightness Morphine Nausea/vomiting Medium 04/30/2012 Severe nausea and vomiting Penicillins Rash 11/23/1999 Other reaction(s): rash documented as of this encounter (statuses as of 11/01/2022) Medications Medication Sig Dispensed Refills Start Date End Date Status acetaminophen (TYLENOL) 500 MG TabletIndications: Pain of both shoulder joints,Spasm of muscle Take 2 Tabs by mouth every 8 hours as needed for Pain or Fever. 100 Tab 0 12/01/2016 Active Eugene-3 Fatty Acids (FISH OIL) 1000 MG CapsuleIndications [...] as of this encounter (statuses as of 11/01/2022) Active Problems Problem Noted Date Moderate episode [...] as of this encounter (statuses as of 11/01/2022) Resolved Problems Problem Noted Date Resolved Date Dyslipidemia, goal to be determined 01/12/2009 03/26/2012 Overview: Per Lipid Taxonomy. Mixed dyslipidemia 08/29/2003 01/12/2009 Overview: Per Lipid Taxonomy. ANGINA PECTORIS NEC-NOS 07/01/2003 10/12/19 05 documented as of this encounter (statuses as of 11/01/2022) Immunizations Name Administration Dates Next Due Seasonal [...] encounter Miscellaneous Notes * Telephone Encounter - Maura Sandoval LPN - 11/01/2022 1:34 PM EDT See other TE. * Telephone Encounter - Vannessa Sparrow CMA - 11/01/2022 10:08 AM EDT Patient is requesting a call from office in regards of labs ,states he will like to know what are the next steps due to having positive hep b results he is concern . Please call to advise documented in this encounter Plan of Treatment Upcoming Encounters Date Type Specialty Care Team Description 12/08/2022 Office Visit Gastroenterology Thuy Knott, DO [address] [place] [address] 02/23/2023 Office Visit Sleep Disorders Evita Gunn, [address] [place] [address] 04/09/2023 Laboratory Laboratory [address] [place] [address] 04/12/2023 Office Visit Internal Medicine Dayana Ortiz MD [address] [facility] [place] [address] Scheduled Procedures Name Priority Associated Diagnoses Date/Ti [...] filedocumented as of this encounter Care Teams Digital Learning Platforms Manager Relationship Specialty Start Date End Date Dayana Ortiz MD [address] [place] [address] PCP - General 10/16/07 documented as of this encounter
--- OUTSIDE RECORDS SUMMARY | 2022-12-27 04:29 | External Medical Summary ---
Author Name Unknown Address Unknown Organization K01:[place] [place] [address] [place] [address] Laboratory Report Ordering Provider Test Date Status CARROL BURT 10/31/2022 07:55:26 Final Observation Date Value Abnormality Reference (Units ) Status BUN 10/31/2022 07:55:26 14 6-20 (mg/dL) Final Creatinine 10/31/2022 07:55:26 1.0 0.6-1.2 (mg/dL) Final Glomerular filtration rate/1.73 sq M.predicted [Volume Rate/Area] in Serum, Plasma or Blood by Creatinine-based formula (CKD-EPI) 10/31/2022 07:55:26 >90 >=60 (mL/min) Final eGFR is calculated based on the CKD-EPI 2020 equation SODIUM 10/31/2022 07:55:26 142 135-146 (m mol/L) Final Potassium 10/31/2022 07:55:26 4.1 3.5-5.1 (m mol/L) Final Cl 10/31/2022 07:55:26 105 98-107 (mm ol/L) Final CO2 10/31/2022 07:55:26 26 22-32 (mmo l/L) Final Anion gap 10/31/2022 07:55:26 11 7-15 (mmol /L) Final Glucose 10/31/2022 07:55:26 92 70-120 (mg /dL) Final Albumin 10/31/2022 07:55:26 4.5 3.8-5.0 (g /dL) Final AST (Aspartate aminotransferase) 10/31/2022 07:55:26 33 10-50 (U/L) Fin al Alk Phos 10/31/2022 07:55:26 55 35-130 (U/ L) Final Bilirubin, Total 10/31/2022 07:55:26 0.4 <=1 .2 (mg/dL) Final Calcium 10/31/2022 07:55:26 9.4 8.4-10.2 ( mg/dL) Final Protein 10/31/2022 07:55:26 6.6 6.0-8.3 (g /dL) Final ALT (Alanine aminotransferase) 10/31/2022 07:55:26 53 Above high normal 10-50 (U/L) Final Performing Location [facility] [place] [address] [facility] [address]
--- OUTSIDE RECORDS SUMMARY | 2022-12-27 04:29 | External Medical Summary ---
Author Name Unknown Address Unknown Organization : Laboratory Report Ordering Provider Test Date Status CARROL BURT 10/31/2022 07:55:26 Final Observation Date Value Abnormality Reference (Units ) Status Anaplasma phagocytophilum DNA [Presence] in Blood by GEN with probe detection 10/31/2022 07:55:26 Not Detected Not Detected Final This test was developed and its analytical performance
characteristics have been determined by [employer] [place], [place]. It has
not been cleared or approved by the U.S. Food and Drug
Administration. This assay has been validated pursuant
to the CLIA regulations and is used for clinical
purposes.

Test Performed at:
[facility]
[address] [facility] [place] [address]
Steven Ramirez M.D., Ph.D.,Director of Laboratories Performing Location
--- OUTSIDE RECORDS SUMMARY | 2022-12-27 04:29 | External Medical Summary ---
Author Name Unknown Address Unknown Organization [id number]:LABORATORY [address] [place] [address] Laboratory Report Ordering Provider Test Date Status CHARLES ZHOU 10/31/2022 07:55:26 Final Observation Date Value Abnormality Reference (Units) Status Hepatitis B virus surface Ab [Units/volume] in Serum or Plasma by Immunoassay 10/31/2022 07:55:26 27.7 (mIU/mL) Final Hepatitis B virus surface Ab [Presence] in Serum by Immunoassay 10/31/2022 07:55:26 Positive Final HEPATITIS B SURFACE ANTIBODY, INTERPRETATION 10/31/2022 07:55:26 Immune to Hepatitis B Virus Final POSITIVE: >=11.5 mIU/mL
INDETERMINATE: 8.5-<11.5 mIU/mL
NEGATIVE: <8.5 mIU/mL Performing Location [facility] [place] [address] [facility] [place] [address]
--- OUTSIDE RECORDS SUMMARY | 2022-12-27 04:29 | External Medical Summary ---
Author Name Unknown Address Unknown Organization [id number]:[facility] [address] [place] [address] Laboratory Report Ordering Provider Test Date Status CARROL BURT 10/31/2022 07:55:26 Final Observation Date Value Abnormality Reference (Units ) Status CRP, low-sensitivity 10/31/2022 07:55:26 3 <=5 (mg/L) Final Performing Location [facility] - [address] [place] [address]
--- OUTSIDE RECORDS SUMMARY | 2022-12-27 04:29 | External Medical Summary | Summary of Care ---
Author Name Unknown Organization [facility] Address [address] [place] [address] Phone [phone] Care Team Providers Care Tin Flipper Name Role Phone Dayana Ortiz MD Primary Care Provider + Reason for Visit * Reason Comments Outpatient Testing Encounter Details Date Type Department Care Team Description 10/31/2022 Laboratory Laboratory [address] [place] [phone] [place] [address] Need for hepatitis B vaccination; Myalgia; Polyarthralgia Allergies Active Allergy Reactions Severity Noted Date Comments Cinnamon Other (Please comment) 04/24/2016 chest tightness Morphine Nausea/vomiting Medium 04/30/2012 Severe nausea and vomiting Penicillins Rash 11/23/1999 Other reaction(s): rash documented as of this encounter (statuses as of 10/31/2022) Medications Medication Sig Dispensed Refills Start Date End Date Status acetaminophen (TYLENOL) 500 MG TabletIndications: Pain of both shoulder joints,Spasm of muscle Take 2 Tabs by mouth every 8 hours as needed for Pain or Fever. 100 Tab 0 12/01/2016 Active [place]-3 Fatty Acids (FISH OIL) 1000 MG CapsuleIndications [...] as of this encounter (statuses as of 10/31/2022) Active Problems Problem Noted Date Moderate episode [...] of inactive term Gastric ulcer Overview: ruptured 210/ Migraine variant documented as of this encounter (statuses as of 10/31/2022) Resolved Problems Problem Noted Date Resolved Date Dyslipidemia, goal to be determined 01/12/2009 03/26/2012 Overview: Per Lipid Taxonomy. Mixed dyslipidemia 08/29/2003 01/12/2009 Overview: Per Lipid Taxonomy. ANGINA PECTORIS NEC-NOS 07/01/2003 10/12/19 05 documented as of this encounter (statuses as of 10/31/2022) Immunizations Name Administration Dates Next Due Seasonal [...] on file documented as of this encounter Plan of Treatment Upcoming Encounters Date Type Specialty Care Team Description 12/08/2022 Office Visit Gastroenterology Thuy Knott, DO [address] [place] [address] 02/23/2023 Office Visit Sleep Disorders Evita Gunn, [address] [place] [address] 04/09/2023 Laboratory Laboratory [address] [place] [address] 04/12/2023 [facility] Visit [facility] [address] Pending Results Name Type Priority Associated Diagnoses Date /Time HEPATITIS B SURFACE ANTIBODY Lab Routine Need for hepatitis B vaccination 10/31/2022 7:55 AM EDT CBC WITH WBC DIFFERENTIAL AND ANEMIA REFLEX WORKUP Lab Routine Myalgia Polyarthralgia 10/31/2022 7:55 AM EDT ERYTHROCYTE SEDIMENTATION RATE (ESR) Lab Routine Myalgia Polyarthralgia 10/31/2022 7:55 AM EDT CRP (INFLAMMATORY MARKER) Lab Routine Myalgia Polyarthralgia 10/31/2022 7:55 AM EDT LYME DISEASE ANTIBODY SCREEN WITH REFLEX TO CONFIRMATION Lab Routine Myalgia Polyarthralgia 10/31/2022 7:55 AM EDT COMPREHENSIVE METABOLIC PANEL Lab Routine Myalgia Polyarthralgia 10/31/2022 7:55 AM EDT CK Lab Routine Myalgia Polyarthralgia 10/31/2022 7:55 AM EDT ANAPLASMA PHAGOCYTOPHILUM DNA, QL REAL-TIME PCR Lab Routine Myalgia Polyarthralgia 10/31/2022 7:55 AM EDT URIC ACID Lab Routine Myalgia Polyarthralgia 10/31/2022 7:55 AM EDT ANEMIA CBC Lab Routine Myalgia Polyarthralgia 10/31/2022 7:55 AM EDT DIFFERENTIAL, AUTOMATED Lab Routine Myalgia Polyarthralgia 10/31/2022 7:55 AM EDT ANEMIA REFLEX CHEMISTRY HOLD Lab Routine Myalgia Polyarthralgia 10/31/2022 7:55 AM EDT LYME DISEASE ANTIBODY SCREEN Lab Routine Myalgia Polyarthralgia 10/31/2022 7:55 AM EDT Scheduled Procedures Name Priority Associated Diagnoses Date/Ti [...] Additional history exists Lipid Panel 10/11/2027 10/10/2022, 04/2 06/2022, 04/25/2021, Additional history exists DTaP,Tdap,and Td Vaccines [...] as of this encounter Visit Diagnoses Diagnosis Need for hepatitis B vaccination Need for prophylactic vaccination and inoculation against viral hepatitis Myalgia Mylagia and myositis, unspecified Polyarthralgia Pain in joint, multiple sites documented in this encounter Care Teams Tin Flipper Relationship Specialty Start Date End Date Dayana Ortiz MD [address] [place] [address] PCP - General 10/16/07 documented as of this encounter
--- OUTSIDE RECORDS SUMMARY | 2022-12-27 04:29 | External Medical Summary ---
Author Name Unknown Address Unknown Organization [id number]:LAB[facility]ATORY [facility] - [address] [place] [address] Laboratory Report Ordering Provider Test Date Status CARROL BURT 10/31/2022 07:55:26 Final Observation Date Value Abnormality Reference (Units ) Status OCTAVIO 10/31/2022 07:55:26 77 39-308 (U/ L) Final Performing Location [facility] [address] [place] [address]
--- OUTSIDE RECORDS SUMMARY | 2022-12-27 04:29 | External Medical Summary ---
Author Name Unknown Address Unknown Organization [id number]:LABORATORY [facility] [place] - [address] [place] [address] Laboratory Report Ordering Provider Test Date Status CARROL BURT 10/31/2022 07:55:26 Final Observation Date Value Abnormality Reference (Units ) Status Erythrocyte sedimentation rate by Photometric method 10/31/2022 07:55:26 11 <20 (mm/hour) Final Performing Location [facility] - [address] [place] [address]
--- OUTSIDE RECORDS SUMMARY | 2022-12-27 04:29 | External Medical Summary ---
Author Name Unknown Address Unknown Organization [id number]:[facility] - [address] [place] [address] Laboratory Report Ordering Provider Test Date Status CARROL BURT 10/31/2022 07:55:26 Final Observation Date Value Abnormality Reference (Units ) Status SYNC LEUKOCYTES IN BLOOD BY AUTOMATED COUNT 10/31/2022 07:55:26 6.95 4.00-10.80 (K/uL) Final Segs 10/31/2022 07:55:26 49.4 40.0-75.0 (%) Final Lymphs % 10/31/2022 07:55:26 40.0 18.0-42.0 (%) Final Monos 10/31/2022 07:55:26 7.8 1.0-11.0 (%) Final Eosinophils 10/31/2022 07:55:26 2.0 0.0-6.0 (%) Final Basos 10/31/2022 07:55:26 0.7 0.0-2.0 (%) Final Immature Granulocyte, Percent 10/31/2022 07:55:26 0.1 0.0-2.0 (%) Final Absolute Segs 10/31/2022 07:55:26 3.43 1.80-7.70 (K/uL) Final Lymphs, absolute 10/31/2022 07:55:26 2.78 1.00-4.80 (K/ul) Final Monos, Abs 10/31/2022 07:55:26 0.54 0.00-1.10 (K/uL) Final Eos, Abs 10/31/2022 07:55:26 0.14 0.00-0.70 (K/uL) Final Basos, Abs 10/31/2022 07:55:26 0.05 0.00-0.20 (K/uL) Final Immature Granulocytes, Number 10/31/2022 07:55:26 0.01 0.00-0.20 (K/uL) Final Performing Location [facility] - [address] [facility] [address]
--- OUTSIDE RECORDS SUMMARY | 2022-12-27 04:29 | External Medical Summary ---
Author Name Unknown Address Unknown Organization [id number]:[facility] [place] [address] [place] [address] Laboratory Report Ordering Provider Test Date Status CARROL BURT 10/31/2022 07:55:26 Final Observation Date Value Abnormality Reference (Units ) Status WBC, Total 10/31/2022 07:55:26 6.95 4.00-10.8 0 (K/uL) Final RBC 10/31/2022 07:55:26 4.90 4.50-5.25 (M/uL) Final Hemoglobin 10/31/2022 07:55:26 14.6 14.0-16.8 (g/dL) Final Anemia reflex testing trigge rs on a HGB < 12.0 for Females and HGB < 13.0 for Males in accordance with the WHO Anemia Guidelines
Anemia reflex testing triggers on a HGB < 12.0 for Females and HGB < 13.0 for Males in accordance with the WHO Anemia Guidelines HCT 10/31/2022 07:55:26 44.0 40.0-48.4 (%) Final MCV 10/31/2022 07:55:26 89.8 82.0-99.5 (fL) Final MCH 10/31/2022 07:55:26 29.8 27.0-34.0 (pg) Final MCHC 10/31/2022 07:55:26 33.2 32.0-36.0 (g/dL) Final RDW 10/31/2022 07:55:26 12.5 11.5-15.5 (%) Final Platelets 10/31/2022 07:55:26 158 140-400 (K /uL) Final MPV 10/31/2022 07:55:26 10.3 6.6-11.1 ( fL) Final Nucleated erythrocytes/100 leukocytes [Ratio] in Blood by Automated count 10/31/2022 07:55:26 0 <=0 (/100 WBCs) Fi nal Performing Location [facility] - [address] [place] [address]
--- OUTSIDE RECORDS SUMMARY | 2022-12-27 04:29 | External Medical Summary ---
Author Name Unknown Address Unknown Organization [id number]:[facility]ATORY [facility] [place] [address] [facility] [address] Laboratory Report Ordering Provider Test Date Status CARROL BURT 10/31/2022 07:55:26 Final Observation Date Value Abnormality Reference (Units ) Status Borrelia burgdorferi IgG and IgM [Interpretation] in Serum by Immunoassay 10/31/2022 07:55:26 Negative Negative Final Performing Location [facility] [place] [facility] [address] [facility] [address] [facility] [address]
--- OUTSIDE RECORDS SUMMARY | 2022-12-27 04:29 | External Medical Summary | Summary of Care ---
Author Name Unknown Organization [facility] Address [address] [place] [address] Phone [phone] Care Team Providers Care Community Development Director Name Role Phone Dayana Ortiz MD Primary Care Provider + Reason for Visit * Reason Comments Acute Encounter Details Date Type Department Care Team Description 10/31/2022 Office Visit Family Medicine [address] [place] [phone] Kimberly Hernandez PA-Kendrick [address] [place] [address] [place] [phone] Myalgia*; Polyarthralgia Allergies Active Allergy Reactions Severity Noted Date Comments Cinnamon Other (Please comment) 04/24/2016 chest tightness Morphine Nausea/vomiting Medium 04/30/2012 Severe nausea and vomiting Penicillins Rash 11/23/1999 Other reaction(s): rash documented as of this encounter (statuses as of 10/31/2022) Medications Medication Sig Dispensed Refills Start Date End Date Status acetaminophen (TYLENOL) 500 MG TabletIndication s:Pain of both shoulder joints,Spasm of muscle Take 2 Tabs by mouth every 8 hours as needed for Pain or Fever. 100 Tab 0 12/01/2016 Active [place]-3 Fatty Acids (FISH OIL) 1000 MG CapsuleIndicatio ns:takes in the evening Take 1 Capsule by mouth in the morning. 0 Active CPAP every night at bedtime. 0 Active hydrOXYzine HCl 25 MG Oral TabletIndication s:KENRICK (generalized anxiety disorder) TAKE ONE TABLET BY MOUTH THREE TIMES DAILY NEEDED FOR ANXIETY 60 Tablet 2 03/10/2021 Active Omeprazole 20 MG Oral Capsule Delayed Release (PriLOSEC) TAKE ONE CAPSULE BY MOUTH TWICE DAILY 60 Capsule 5 11/28/2021 Active Atorvastatin Calcium 80 MG Oral Tablet (Lipitor)Indicat ions:Hyperlipide julianna with target LDL less than 100 TAKE ONE TABLET BY MOUTH EVERY DAY 90 Tablet 3 01/11/2022 Active Dexlansoprazole 30 MG Oral Capsule Delayed Release Take 1 Capsule by mouth in the morning and 1 Capsule in the evening. 180 Capsule 3 05/30/2022 Active Fenofibrate 160 MG Oral Tablet (Lofibra)Indicat ions:Hyperlipide julianna with target LDL less than 100 TAKE ONE TABLET BY MOUTH EVERY DAY WITH MEAL 30 Tablet 5 07/30/2022 Active Ventolin HFA 108 (90 Base) MCG/ACT Inhalation Aerosol SolutionIndicati ons:Influenza A Inhale 2 Puffs by mouth every 4 hours as needed for Wheezing. 7 g 1 10/12/2022 Active Fluticasone Propionate 50 MCG/ACT Nasal Suspension (Flonase)Indicat ions:Chronic maxillary sinusitis Administer 2 Sprays into each nostril in the morning. 16 g 3 10/12/2022 Active Coenzyme Q10 (CO Q-10) 100 MG CAPSIndications: takes in the evening Take by mouth. 0 3 Discontinue d(Medicatio n List Clean Up) documented as of this encounter (statuses as [...] Sign Reading Time Taken Comments Blood Pressure 120/72 10/31/2022 7:08 AM EDT Pulse 60 10/31/2022 7:08 AM EDT Temperature 36.3 C (97.3 F) 10/31/2022 7:08 AM ED T Respiratory Rate 16 10/31/2022 7:08 AM EDT Oxygen Saturation 96% 10/31/2022 7:08 AM EDT Inhaled Oxygen Concentration - - Weight 108 kg (238 lb) 10/31/2022 7:08 AM EDT Height - - Body Mass Index 35.15 10/19/2022 2:09 PM EDT documented in this encounter Progress Notes * Kimberly Hernandez PA-C - 10/31/2022 7:13 AM EDT Images from the original note were not included. History of Present Illness Pierre Mead is a 52 year old male that presents for Acute Nursing Notes: Bambi Ojeda RN 10/31/22 0712 Sign at exiting of workspace Acute sick visit, pt has body aches all over, started about 4-5 days ago, no other symptoms, no temp Pt did have a tick about 6 months ago HPI: Pierre Mead is a 52 year old male presenting to the office today for body aches x 4-5 days. He has had some headache as well. He feels like his muscles and joints are hurting, especially his back. He did have a cold last week, but no lingering symptoms since then. No sweats/chills. He has been taking his statin and fenofibrate. He does drink beer almost daily. He has had tick bites in the past. Current Outpatient Medications Medication Instructions Acetaminophen (TYLENOL) 1,000 mg, Oral, Q8H PRN Atorvastatin Calcium 80 MG Oral Tablet (Lipitor) TAKE ONE TABLET BY MOUTH EVERY DAY Coenzyme Q10 (CO Q-10) 100 MG CAPS Oral CPAP QHS Dexlansoprazole (DEXILANT) 30 mg, Oral, BID (0700,1900) Fenofibrate 160 MG Oral Tablet (Lofibra) TAKE ONE TABLET BY MOUTH EVERY DAY WITH MEAL Fish Oil 1,000 mg, Oral, Daily(AM) Fluticasone Propionate 50 MCG/ACT Nasal Suspension (Flonase) 2 Sprays, Each Nostril, Daily(AM) hydrOXYzine HCl 25 MG Oral Tablet TAKE ONE TABLET BY MOUTH THREE TIMES DAILY NEEDED FOR ANXIETY Omeprazole 20 MG Oral Capsule Delayed Release (PriLOSEC) TAKE ONE CAPSULE BY MOUTH TWICE DAILY Ventolin HFA 108 (90 Base) MCG/ACT Inhalation Aerosol Solution 2 Puffs, Inhalation, Q4H PRN Med list reviewed by me today. Physical Exam Vitals: 10/31/22 0708 Temp: 36.3 C (97.3 F) Pulse: 60 Resp: 16 SpO2: 96% BP: 120/72 Physical exam: General: Well-Developed. Well appearing. No acute distress. HENT: Normocephalic. Atraumatic. Hearing normal. B/L TM intact, pearly ndiaye. No erythema/edema noted of B/L TM. No cerumen impaction. No drainage note. Tragus without tenderness. Posterior oropharynxwithout erythema, exudates, or post- nasal drip. Eyes: EOMI. Sclera without erythema or icterus. No discharge. Pupils equal, round, reactive to light. Neck: No tracheal deviation. ROM intact. No stridor. No thyromegaly noted. Without adenopathy. Non-tender. Cardiovascular: RRR. Normal S1/S2 noted. No murmur, rub or gallop appreciated. Pulmonary: No respiratory distress. No accessory muscle use. No adventitious sounds appreciated. Normal breath sounds. Musculoskeletal: ROM intact and appears normal. No gait disturbance. No edema or cyanosis. No calf tenderness. Neurologic: Alert. Oriented x 3. Appears stated age. CN 2-12 grossly intact. Skin: Warm and dry. No apparent rashes or ecchymoses. No jaundice or pallor noted. Psych: Mood and affect normal. I have reviewed the following results: CMP and Lipid Panel Assessment and Plan Myalgia Polyarthralgia Check labs today. Seems likely to be either statin myopathy vs tick borne illness. - CBC WITH WBC DIFFERENTIAL AND ANEMIA REFLEX WORKUP; Future - ERYTHROCYTE SEDIMENTATION RATE (ESR); Future - CRP (INFLAMMATORY MARKER); Future - LYME DISEASE ANTIBODY SCREEN WITH REFLEX TO CONFIRMATION; Future - COMPREHENSIVE METABOLIC PANEL; Future - CK; Future - ANAPLASMA PHAGOCYTOPHILUM DNA, QL REAL-TIME PCR; Future - URIC ACID; Future Wrap-Up F/U Pending above. documented in this encounter Nursing Notes * Bambi Ojeda RN - 10/31/2022 7:08 AM EDT Acute sick visit, pt has body aches all over, started about 4-5 days ago, no other symptoms, no temp Pt did have a tick about 6 months ago documented in this encounter Plan of Treatment Upcoming Encounters Date Type Specialty Care Team Description 12/08/2022 Office Visit Gastroenterology Thuy Knott, [address] [place] [address] 02/23/2023 Office Visit Sleep Disorders Evita Gunn, [address] [place] [address] 04/09/2023 Laboratory Laboratory [address] [place] [address] 04/12/2023 Office Visit Internal Medicine Dayana Ortiz MD [address] [place] [address] [place] [address] Pending Results Name Type Priority Associated Diagnoses Date /Time CBC WITH WBC DIFFERENTIAL AND ANEMIA REFLEX [...] Myalgia Polyarthralgia 10/31/2022 7:55 AM EDT Scheduled Orders Name Type Priority Associated Diagnoses Orde r Schedule CBC WITH WBC DIFFERENTIAL AND ANEMIA REFLEX WORKUP Lab Routine Myalgia Polyarthralgia Expected: 10/31/2022 (Approximate), Expires: 11/01/2023 ERYTHROCYTE SEDIMENTATION RATE (ESR) Lab Routine Myalgia Polyarthralgia Expected: 10/31/2022 (Approximate), Expires: 10/31/2023 CRP (INFLAMMATORY MARKER) Lab Routine Myalgia Polyarthralgia Expected: 10/31/2022 (Approximate), Expires: 10/31/2023 LYME DISEASE ANTIBODY SCREEN WITH REFLEX TO CONFIRMATION Lab Routine Myalgia Polyarthralgia Expected: 10/31/2022 (Approximate), Expires: 10/31/2023 COMPREHENSIVE METABOLIC PANEL Lab Routine Myalgia Polyarthralgia Expected: 10/31/2022 (Approximate), Expires: 10/31/2023 CK Lab Routine Myalgia Polyarthralgia Expected: 10/31/2022 (Approximate), Expires: 10/31/2023 ANAPLASMA PHAGOCYTOPHILUM DNA, QL REAL-TIME PCR Lab Routine Myalgia Polyarthralgia Expected: 10/31/2022, Expires: 11/01/2023 URIC ACID Lab Routine Myalgia Polyarthralgia Expected: 10/31/2022 (Approximate), Expires: 10/31/2023 Scheduled Procedures Name Priority Associated Diagnoses Date/Ti [...] as of this encounter Visit Diagnoses Diagnosis Myalgia- Primary Mylagia and myositis, unspecified Polyarthralgia Pain in joint, multiple sites documented in this encounter Care Teams Community Development Director Relationship Specialty Start Date End Date Dayana Ortiz MD [address] [place] [address] PCP - General 10/16/07 documented as of this encounter
--- OUTSIDE RECORDS SUMMARY | 2022-12-27 04:29 | External Medical Summary ---
Author Name Unknown Address Unknown Organization K01:LABORATORY [facility] - [address] [place] [address] Laboratory Report Ordering Provider Test Date Status CARROL BURT 10/31/2022 07:55:26 Final Observation Date Value Abnormality Reference (Units ) Status Uric Acid 10/31/2022 07:55:26 4.5 3.4-7.0 (m g/dL) Final Performing Location [facility] - [address] [place] [address]
--- OUTSIDE RECORDS SUMMARY | 2022-12-27 04:30 | External Medical Summary | Summary of Care ---
Author Name Unknown Organization [facility] Address [address] [place] [address] Phone [phone] Care Team Providers Care Motorcycle Repair Shop Supervisor Name Role Phone Dayana Ortiz MD Primary Care Provider + Reason for Visit * Reason Onset Date Comments Test Results Imaging Study 10/18/2022 Encounter Details Date Type Department Care Team Description 10/18/2022 Telephone General Internal Medicine [facility] [address] [place] [address] Dayana Ortiz MD [address] [place] [address] Test Results Imaging Study Allergies Active Allergy Reactions Severity Noted Date Comments Cinnamon Other (Please comment) 04/24/2016 chest tightness Morphine Nausea/vomiting Medium 04/30/2012 Severe nausea and vomiting Penicillins Rash 11/23/1999 Other reaction(s): rash documented as of this encounter (statuses as of 10/18/2022) Medications Medication Sig Dispensed Refills Start Date End Date Status acetaminophen (TYLENOL) 500 MG TabletIndications: Pain of both shoulder joints,Spasm of muscle Take 2 Tabs by mouth every 8 hours as needed for Pain or Fever. 100 Tab 0 12/01/2016 Active [place]-3 Fatty Acids (FISH OIL) 1000 MG CapsuleIndications [...] as of this encounter (statuses as of 10/18/2022) Active Problems Problem Noted Date Moderate episode [...] as of this encounter (statuses as of 10/18/2022) Resolved Problems Problem Noted Date Resolved Date Dyslipidemia, goal to be determined 01/12/2009 03/26/2012 Overview: Per Lipid Taxonomy. Mixed dyslipidemia 08/29/2003 01/12/2009 Overview: Per Lipid Taxonomy. ANGINA PECTORIS NEC-NOS 07/01/2003 10/12/19 05 documented as of this encounter (statuses as of 10/18/2022) Immunizations Name Administration Dates Next Due Seasonal [...] encounter Miscellaneous Notes * Telephone Encounter - ELYSE [place] - 10/18/2022 8:27 AM EDT Spoke with patient and made aware of results below. State he will call back in a week or 2 if he continues to have issues. * Telephone Encounter - ELYSE Colunga - 10/18/2022 8:25 AM EDT ----- Message from Dayana Ortiz MD sent at 10/16/2022 9:30 AM EDT ----- Xray hand/ thumb no fracture or significant arthritis. If ongoing issues, can refer to Ortho. documented in this encounter Plan of Treatment Upcoming Encounters Date Type Specialty Care Team Description 10/19/2022 Office Visit Sleep Disorders Evita Gunn, DO [address] [place] [address] 12/08/2022 Office Visit Gastroenterology Thuy Knott, DO [address] [place] [address] 02/23/2023 Office Visit Sleep Disorders Evita Gunn, DO [address] [place] [address] 04/09/2023 Laboratory Laboratory [place], [address] [place] [address] 04/12/2023 Office Visit Internal Medicine Dayana Ortiz MD [address] [facility] [place] [address] Scheduled Procedures Name Priority Associated Diagnoses Date/Ti [...] filedocumented as of this encounter Care Teams Motorcycle Repair Shop Supervisor Relationship Specialty Start Date End Date Dayana Ortiz MD [address] [facility], [place] [phone] PCP - General 10/16/07 documented as of this encounter
--- OUTSIDE RECORDS SUMMARY | 2022-12-27 04:30 | External Medical Summary | Summary of Care ---
Author Name Unknown Organization [facility] Address [address] [place] [address] Phone [phone] Care Team Providers Care Saw Boss Name Role Phone Dayana Ortiz MD Primary Care Provider + Reason for Visit * Reason Comments Follow Up The pt stated he is here for a follow up appointment Encounter Details Date Type Department Care Team Description 10/12/2022 Office Visit General Internal Medicine [facility] [place] [address] [place] [address] Dayana Ortiz MD [address] [facility] [place] [address] Gastroesophageal reflux disease without esophagitis*; Need for hepatitis B vaccination; Moderate episode of recurrent major depressive disorder (HCC); CSA (central sleep apnea); LATRICIA (obstructive sleep apnea); Chronic maxillary sinusitis; Hyperlipidemia with target LDL less than 100; Influenza A; Wheezing; Chronic bilateral low back pain without sciatica; Thumb pain, right; Prediabetes; Need for influenza vaccination Allergies Active Allergy Reactions Severity Noted Date Comments Cinnamon Other (Please comment) 04/24/2016 chest tightness Morphine Nausea/vomiting Medium 04/30/2012 Severe nausea and vomiting Penicillins Rash 11/23/1999 Other reaction(s): rash documented as of this encounter (statuses as of 10/12/2022) Medications Medication Sig Dispensed Refills Start Date End Date Status acetaminophen (TYLENOL) 500 MG TabletIndicatio ns:Pain of both shoulder joints,Spasm of muscle Take 2 Tabs by mouth every 8 hours as needed for Pain or Fever. 100 Tab 0 7 Active [place]-3 Fatty Acids (FISH OIL) 1000 MG CapsuleIndicati ons:takes in the evening Take 1 Capsule by mouth in the morning. 0 Active Coenzyme Q10 (CO Q-10) 100 MG CAPSIndications :takes in the evening Take by mouth. 0 Active CPAP every night at bedtime. 0 Active hydrOXYzine HCl 25 MG Oral TabletIndicatio ns:KENRICK (generalized anxiety disorder) TAKE ONE TABLET BY MOUTH THREE TIMES DAILY NEEDED FOR ANXIETY 60 Tablet 2 2 Active Omeprazole 20 MG Oral Capsule Delayed Release (PriLOSEC) TAKE ONE CAPSULE BY MOUTH TWICE DAILY 60 Capsule 5 2 Active Atorvastatin Calcium 80 MG Oral Tablet (Lipitor)Indica tions:Hyperlipi demia with target LDL less than 100 TAKE ONE TABLET BY MOUTH EVERY DAY 90 Tablet 3 2 Active Dexlansoprazole 30 MG Oral Capsule Delayed Release Take 1 Capsule by mouth in the morning and 1 Capsule in the evening. 180 Capsule 3 3 Active Fenofibrate 160 MG Oral Tablet (Lofibra)Indica tions:Hyperlipi demia with target LDL less than 100 TAKE ONE TABLET BY MOUTH EVERY DAY WITH MEAL 30 Tablet 5 3 Active Ventolin HFA 108 (90 Base) MCG/ACT Inhalation Aerosol SolutionIndicat ions:Influenza A Inhale 2 Puffs by mouth every 4 hours as needed for Wheezing. 7 g 1 3 Active Fluticasone Propionate 50 MCG/ACT Nasal Suspension (Flonase)Indica tions:Chronic maxillary sinusitis Administer 2 Sprays into each nostril in the morning. 16 g 3 3 Active Melatonin 10 MG Oral Tablet Take 1 Tablet by mouth at bedtime. 0 10/13/19 23 Discontinued Ventolin HFA 108 (90 Base) MCG/ACT Inhalation Aerosol SolutionIndicat ions:Influenza A Inhale 2 Puffs by mouth every 4 hours as needed for Wheezing. 7 g 1 2 10/13/19 23 Discontinued(Ref ill) documented as of this encounter (statuses as of 10/12/2022) Active Problems Problem Noted Date Moderate episode [...] of inactive term Gastric ulcer Overview: ruptured / Migraine variant documented as of this encounter (statuses as of 10/12/2022) Resolved Problems Problem Noted Date Resolved Date Dyslipidemia, goal to be determined 01/12/2009 03/26/2012 Overview: Per Lipid Taxonomy. Mixed dyslipidemia 08/29/2003 01/12/2009 Overview: Per Lipid Taxonomy. ANGINA PECTORIS NEC-NOS 07/01/2003 10/12/19 05 documented as of this encounter (statuses as of 10/12/2022) Immunizations Name Administration Dates Next Due Seasonal [...] Sign Reading Time Taken Comments Blood Pressure 108/68 10/12/2022 7:45 AM EDT Pulse 57 10/12/2022 7:45 AM EDT Temperature 35.8 C (96.4 F) 10/12/2022 7:45 AM ED T Respiratory Rate - - Oxygen Saturation 95% 10/12/2022 7:45 AM EDT Inhaled Oxygen Concentration - - Weight 107.4 kg (236 lb 11.2 oz) 10/12/2022 7:45 AM EDT Height - - Body Mass Index 34.95 04/10/2022 7:59 AM EST documented in this encounter Progress Notes * Dayana Ortiz MD - 10/12/2022 7:55 AM EDT HPI: Pierre Mead is a 52 year old male with medical as listed below who presents with: Chief Complaint Patient presents with Follow Up The pt stated he is here for a follow up appointment Patient is here for the recheck. Chart reviewed with the patient including current meds, last labs and HM. No acute event since we saw patient last time including no recent fall or injuries. LFTS back to normal. Works on diet, exercise. Discussed flu shot. Denies any chestpain/sob/palpitation/swealling in the legs. Denies any cough/sob/wheezing/chestpain. Denies nausea,vomiting, diarrhoea, constipation, abdominal pain or blood in stool. Denies heart burn. Has good appetite. No urinary symptoms. Denies any anxiety or depression. Lower backpain+ Rt thumb injury+. No bruise and painful locally. Patient Active Problem List Diagnosis Code Esophageal reflux K21.9 HISTORY OF TOBACCO USE Z87.891 Anal fissure K60.2 Other form of scoliosis, unspecified spinal region M41.80 ADVANCE DIRECTIVE INFORMATION Reflux esophagitis K21.00 Gastroparesis K31.84 Gastric ulcer K25.9 Migraine variant G43.809 Hypersomnia with sleep apnea G47.10, G47.30 NONALLERGIC RHINITIS J31.0 Deviated nasal septum J34.2 Chronic sinusitis J32.9 Acquired deformity of nose M95.0 Hypertrophy of nasal turbinates J34.3 LATRICIA (obstructive sleep apnea) G47.33 Hyperlipidemia with target LDL less than 100 E78.5 Family history of ischemic heart disease Z82.49 Status post Kenrick fundoplication Z98.890 Adhesive capsulitis of left shoulder M75.02 Allergic rhinitis J30.9 CSA (central sleep apnea) G47.31 Moderate episode of recurrent major depressive disorder (HCC) F33.1 Current Outpatient Medications Medication Sig Dispense Refill acetaminophen (TYLENOL) 500 MG Tablet Take 2 Tabs by mouth every 8 hours as needed for Pain or Fever. 100 Tab 0 [place]-3 Fatty Acids (FISH OIL) 1000 MG Capsule Take 1 Capsule by mouth in the morning. Coenzyme Q10 (CO Q-10) 100 MG CAPS Take by mouth. CPAP every night at bedtime. hydrOXYzine HCl 25 MG Oral Tablet TAKE ONE TABLET BY MOUTH THREE TIMES DAILY NEEDED FOR ANXIETY 60 Tablet 2 Omeprazole 20 MG Oral Capsule Delayed Release (PriLOSEC) TAKE ONE CAPSULE BY MOUTH TWICE DAILY 60 Capsule 5 Atorvastatin Calcium 80 MG Oral Tablet (Lipitor) TAKE ONE TABLET BY MOUTH EVERY DAY 90 Tablet 3 Ventolin HFA 108 (90 Base) MCG/ACT Inhalation Aerosol Solution Inhale 2 Puffs by mouth every 4 hours as needed for Wheezing. 7 g 1 Dexlansoprazole 30 MG Oral Capsule Delayed Release Take 1 Capsule by mouth in the morning and 1 Capsule in the evening. 180 Capsule 3 Fenofibrate 160 MG Oral Tablet (Lofibra) TAKE ONE TABLET BY MOUTH EVERY DAY WITH MEAL 30 Tablet 5 No current facility-administered medications for this visit. The patient's medication list was reviewed and updated as needed. Review of patient's allergies indicates: Allergen Reactions Morphine Nausea/vomiting Severe nausea and vomiting Cinnamon Other (Please comment) chest tightness Penicillins Rash Other reaction(s): rash Past Medical History: Diagnosis Date Anal fissure Cervicalgia Esophageal reflux Gastric ulcer ruptured Gastroparesis 10/19/05 T / 123 minutes Hemorrhoids fissure repair-stable History of tobacco use Quit chewing in 2001. 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: [employer] Occupation: construction technician Tobacco Use Smoking status: Never Smokeless tobacco: Former Types: Snuff, Chew Quit date: 12/20/2001 Tobacco comments: no passive smoke Vaping Use Vaping Use: Never used Substance and Sexual Activity Alcohol use: Yes Alcohol/week: 30.0 standard drinks Types: 30 12 oz of beer per week Drug use: No Sexual activity: Yes Partners: Female Other Topics Concern Service No Blood Transfusions No Special Diet No Exercise No Seat Belt Yes Social History Narrative [employer] INFORMATION ENVIRONMENTAL HISTORY: Type of Home: One Story Type of Heating System: Oil and Forced air Air Conditioning: Yes Central Basement: Finished and No evidence mold, mildew Home have cockroaches: No Irritants in the home: Scented Candles Patient's bedroom location: Floor: first Type of abby: Linoleum Beds: Number: 1 Type of beds: Mattress Pillows: Number: 1 Type of pillows: Feather (down) Bedroom contains: Minimal items Pets: 1 cat(s) and 2 dog(s) Lives on a farm: No 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 Entered by: Juice Bojorquez MD 10/05/2009 Self-employed, excavation Family History Problem Relation Age of Onset Arthritis Mother Gastro-intestinal disorder Father bowel obstruction Heart Disorder Grandfather (Paternal) of heart attack, 57 All system negative except as per hpi. OBJECTIVE: BP 108/68 | Pulse 57 | Temp 35.8 C (96.4 F) | Wt 107.4 kg (236 lb 11.2 oz) | SpO2 95% | BMI 34.95 kg/m | BSA 2.29 m PHYSICAL EXAM: HEENT: PERRLA, EOMI, anicteric sclera, b/l tympanic membrane is pearly white, no erythema, no pharyngeal erythema, no lymphadenopathy, neck supple CVS: RRR, no murmurs, rubs or gallops, s1 s 2normal. RESP: clear to auscultation, no wheezing or crackles ABD: soft, NT/ND EXT: no edema, cyanosis, peripheral pulses palpable bilaterally No large joint swelling, no redness, range of motion normal. Skin normal. Gait normal. Mood stable No focal weakness Rt thumb point tenderness+ ASSESSMENT AND PLAN: Gastroesophageal reflux disease without esophagitis (Primary) Advised pt to avoid caffeine, fried fatty foods, choclates, peppermints, smoking and alcohol. Exercise and weight loss emphasized. Eat dinner 3 hours prior to bed time. Continue PPI Need for hepatitis B vaccination - HEPATITIS B SURFACE ANTIBODY; Future; Expected date: 10/12/2022 Moderate episode of recurrent major depressive disorder (HCC) Stable. CSA (central sleep apnea) LATRICIA (obstructive sleep apnea) Doesn't use cpap machine. Follows with sleep medicine. Chronic maxillary sinusitis Continue OTC nasal spray as needed. Hyperlipidemia with target LDL less than 100 Continue statin, fenofibrate. Follow Up: Return in about 1 year (around 10/13/2023) for Return with Physician. | For: Return with Physician Dayana Ortiz MD documented in this encounter Nursing Notes * Carlos Enrique Dumas LPN - 10/12/2022 7:45 AM EDT Chief Complaint Patient presents with Follow Up The pt stated he is here for a follow up appointment documented in this encounter Miscellaneous Notes * Addendum Note - Amador Vasquez LPN - 10/12/2022 8:22 AM EDTAddended by: AMADOR VASQUEZ on: 10/12/2022 08:22 AM Modules accepted: Orders * Addendum Note - Dayana Ortiz MD - 10/12/2022 8:16 AM EDTAddended by: DAYANA ORTIZ on: 10/12/2022 08:16 AM Modules accepted: Level of Service documented in this encounter Plan of Treatment Upcoming Encounters Date Type Specialty Care Team Description 12/08/2022 Office Visit Gastroenterology Thuy Knott, DO [address] [place] [address] Scheduled Orders Name Type Priority Associated Diagnoses Orde r Schedule HEPATITIS B SURFACE ANTIBODY Lab Routine Need for hepatitis B vaccination Expected: 10/12/2022 (Approximate), Expires: 10/12/2023 XR FINGERS 2 OR MORE VIEWS Medical Imaging Routine Thumb pain, right Ordered: 10/12/2022 LIPID PANEL WITH DIRECT LDL IF TG IS HIGH Lab Routine Hyperlipidemia with target LDL less than 100 Expected: 03/14/2023, Expires: 10/13/2023 HEMOGLOBIN A1C Lab Routine Prediabetes Expected: 03/14/2023, Expires: 10/12/2023 COMPREHENSIVE METABOLIC PANEL Lab Routine Hyperlipidemia with target LDL less than 100 Expected: 03/14/2023, Expires: 10/12/2023 Scheduled Procedures Name Priority Associated Diagnoses Date/Ti me COLONOSCOPY FLEXIBLE PROXIMAL DIAGNOSTIC Recall History of colon polyps Health Maintenance Due Date Last Done Comments Hepatitis B (1 of 3 - 3-dose series) 1970 COVID-19 Vaccine (#1) 1970 Depression Screening, Annual for Pts 12 and Over 03/29/2022 03/29/2021 COLONOSCOPY-EVERY 3 YRS AGES 18-100 02/28/2025 02/28/2022, [...] reflux disease without esophagitis- Primary Esophageal reflux Need for hepatitis B vaccination Need for prophylactic vaccination and inoculation against viral hepatitis Moderate episode of recurrent major depressive disorder (HCC) CSA (central sleep apnea) Unspecified sleep apnea LATRICIA (obstructive sleep apnea) Obstructive sleep apnea (adult) (pediatric) Chronic maxillary sinusitis Hyperlipidemia with target LDL less than 100 Other and unspecified hyperlipidemia Influenza A Influenza with other respiratory manifestations Wheezing Chronic bilateral low back pain without sciatica Thumb pain, right Prediabetes Other abnormal glucose Need for influenza vaccination Need for prophylactic vaccination and inoculation against influenza documented in this encounter Care Teams Saw Boss Relationship Specialty Start Date End Date Dayana Ortiz MD [address] [facility] [place] [address] PCP - General 10/16/07 documented as of this encounter"
--- OUTSIDE RECORDS SUMMARY | 2022-12-27 04:30 | External Medical Summary | Summary of Care ---
Author Name Unknown Organization [facility] Address [address] [place] [address] Phone [phone] Care Team Providers Care Microbiology Quality Control Technician Name Role Phone Dayana Ortiz MD Primary Care Provider + Reason for Visit * Reason Onset Date Comments Advice 10/12/2022 Sleep Med test [facility] Encounter Details Date Type Department Care Team Description 10/12/2022 Telephone Pulmonary Medicine, [facility] [address] [place] [address] Evita Gunn, [address] [place] [address] Advice ([place] Med test at [place]) Allergies Active Allergy Reactions Severity Noted Date Comments Cinnamon Other (Please comment) 04/24/2016 chest tightness Morphine Nausea/vomiting Medium 04/30/2012 Severe nausea and vomiting Penicillins Rash 11/23/1999 Other reaction(s): rash documented as of this encounter (statuses as of 10/13/2022) Medications Medication Sig Dispensed Refills Start Date End Date Status acetaminophen (TYLENOL) 500 MG TabletIndications: Pain of both shoulder joints,Spasm of muscle Take 2 Tabs by mouth every 8 hours as needed for Pain or Fever. 100 Tab 0 12/01/2016 Active [place]-3 Fatty Acids (FISH OIL) 1000 MG CapsuleIndications [...] as of this encounter (statuses as of 10/13/2022) Active Problems Problem Noted Date Moderate episode [...] as of this encounter (statuses as of 10/13/2022) Resolved Problems Problem Noted Date Resolved Date Dyslipidemia, goal to be determined 01/12/2009 03/26/2012 Overview: Per Lipid Taxonomy. Mixed dyslipidemia 08/29/2003 01/12/2009 Overview: Per Lipid Taxonomy. ANGINA PECTORIS NEC-NOS 07/01/2003 10/12/19 05 documented as of this encounter (statuses as of 10/13/2022) Immunizations Name Administration Dates Next Due Seasonal [...] encounter Miscellaneous Notes * Telephone Encounter - Carmen Morton - 10/13/2022 9:58 AM EDT Please look at telephone encounter/ Pt Message on August 28. Thank you * Telephone Encounter - Saray Anderson - 10/12/2022 8:37 AM EDT Pt called and stated insurance denied study at [place]// pt would like advise on what he should do next// Pt requested appt with Gunn//scheduled 1st available and waitlisted documented in this encounter Plan of Treatment Upcoming Encounters Date Type Specialty Care Team Description 12/08/2022 Office Visit Gastroenterology Thuy Knott, DO [address] [place] [id number] 02/23/2023 Office Visit Sleep Disorders Evita Gunn, [address] [place] [address] 04/09/2023 Laboratory Laboratory [address] [place] [address] 04/12/2023 Office Visit Internal Medicine Dayana Ortiz MD [address] [place] [address] Scheduled Procedures Name Priority Associated Diagnoses Date/Ti [...] filedocumented as of this encounter Care Teams Microbiology Quality Control Technician Relationship Specialty Start Date End Date Dayana Ortiz MD [address] [place] [id number] PCP - General 10/16/07 documented as of this encounter
--- OUTSIDE RECORDS SUMMARY | 2022-12-27 04:30 | External Medical Summary | Summary of Care ---
Author Name Unknown Organization [facility] Address [address] [place] [address] Phone [phone] Care Team Providers Care Kennel Aide Name Role Phone Dayana Ortiz MD Primary Care Provider + Reason for Visit * Reason Comments Follow Up Encounter Details Date Type Department Care Team Description 10/19/2022 Office Visit Sleep Disorders [facility]tr [facility] [address] [place] [phone] Evita Gunn DO [address] [place] [address] Obstructive sleep apnea* Allergies Active Allergy Reactions Severity Noted Date Comments Cinnamon Other (Please comment) 04/24/2016 chest tightness Morphine Nausea/vomiting Medium 04/30/2012 Severe nausea and vomiting Penicillins Rash 11/23/1999 Other reaction(s): rash documented as of this encounter (statuses as of 10/19/2022) Medications Medication Sig Dispensed Refills Start Date End Date Status acetaminophen (TYLENOL) 500 MG TabletIndications: Pain of both shoulder joints,Spasm of muscle Take 2 Tabs by mouth every 8 hours as needed for Pain or Fever. 100 Tab 0 12/01/2016 Active [place]-3 Fatty Acids (FISH OIL) 1000 MG CapsuleIndications [...] as of this encounter (statuses as of 10/19/2022) Active Problems Problem Noted Date Moderate episode [...] as of this encounter (statuses as of 10/19/2022) Resolved Problems Problem Noted Date Resolved Date Dyslipidemia, goal to be determined 01/12/2009 03/26/2012 Overview: Per Lipid Taxonomy. Mixed dyslipidemia 08/29/2003 01/12/2009 Overview: Per Lipid Taxonomy. ANGINA PECTORIS NEC-NOS 07/01/2003 10/12/19 05 documented as of this encounter (statuses as of 10/19/2022) Immunizations Name Administration Dates Next Due Seasonal [...] Smokeless Tobacco: Former Snuff, Chew Quit: 12/20/2001 Tobacco Cessation:Counseling Given: Not Answered Comments:no passive smoke Alcohol Use Standard Drinks/Week Comments Yes 30 (1 standard drink = 0.6 oz pu re alcohol) Alcohol Habits Answer Date Recorded How often do you have a jaleel woodward containing alcohol? 4 or more times a [...] Sign Reading Time Taken Comments Blood Pressure 110/76 10/19/2022 2:09 PM EDT Pulse 66 10/19/2022 2:09 PM EDT Temperature - - Respiratory Rate 14 10/19/2022 2:09 PM EDT Oxygen Saturation 96% 10/19/2022 2:09 PM EDT Inhaled Oxygen Concentration - - Weight 108.4 kg (239 lb) 10/19/2022 2:09 PM EDT Height 175.3 cm (5' 9") 10/19/2022 2:09 PM EDT Body Mass Index 35.29 10/19/2022 2:09 PM EDT documented in this encounter Progress Notes * Evita Gunn, DO - 10/19/2022 2:19 PM EDT Sleep Medicine Follow-Up HISTORY: Pierre Mead is a 52 year old male for follow up of sleep apnea. PSG 04/06/2009: AHI 37.1, severe sleep apnea, mixed, central > obstructive. SpO2 toni 39%; time <90% >41% of the night. 01/2010: UPPP & tonsillectomy Split-night PSG 09/25/2011 (weight 215 lbs): AHI 42.8 (predominantly obstructive/mixed events). TnE0oeelp 82%; time <91% 18.7 min. Titrated to CPAP 8 cwp with residual AHI 2.8. Hypoxia resolved with CPAP. 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 Last seen in Sleep Medicine 09/04/2018 by Eliud PHILIP. Low PAP use due to awakening feeling like heis suffocating when using PAP, and poor mask fit. He was referred to Psychology for mask desensitization. Seen by me 12/22/21. He had tolerated BiPAP better than CPAP, but had not used it regularly since the recall had come out. Some benefit for insomnia from melatonin 10 mg nightly. + snoring. Bouse 2, FOSQ 39. Planned to update testing with split-night PSG (split to BiPAP due to hx CPAP intolerance). Consider lower-profile FFM. Unfortunately, the split-night PSG was not covered by his insurance, so was not completed. (My understanding of [id number]-se-gipx was that an updated baseline was not needed, so I wanted to do the BiPAP titration alone; however, the final determination from his insurance was that both parts of the studywere denied in favor of doing "home sleep study for cpap titration" -- which is not a study that wecan do.) I wrote an appeal letter, but to date have not received a reply. He did receive the recall replacement BiPAP device. Replacement BiPAP is set to his prior setting, 12/11 cwp, per listed Rx in [facility] [employer] [facility]. Mask fitting was recently ordered. Has not yet happened. He brought the new BiPAP with him today. Confirmed that it is a DS autoBiPAP device (per label on device). Placed the modem in the BiPAP. He thinks he returned the humidifier and maybe also the power cord with the recalled device which was mailed back to [employer], so he also needs these replaced in order to start using the replacement device. Bouse Sleepiness Scale: 0 Mod F.O.S.Q.: 39 BiPAP Compliance: No recent data available. He has not yet started using the recall replacement device; needs appropriate supplies first. Equipment: DME Provider is [facility] Auto[facility]. Patient Active Problem List Diagnosis Code Esophageal [...] of recurrent major depressive disorder (HCC) F33.1 Outpatient Medications Marked as Taking for the 10/19/22 encounter (Office Visit) with Evita Gunn, DO Medication Sig Fluticasone Propionate 50 MCG/ACT Nasal Suspension (Flonase) Administer 2 Sprays into each nostril in the morning. Ventolin HFA 108 (90 Base) MCG/ACT Inhalation Aerosol Solution Inhale 2 Puffs by mouth every 4 hours as needed for Wheezing. Fenofibrate 160 MG Oral Tablet (Lofibra) TAKE ONE TABLET BY MOUTH EVERY DAY WITH MEAL Dexlansoprazole 30 MG Oral Capsule Delayed Release Take 1 Capsule by mouth in the morning and 1 Capsule in the evening. Atorvastatin Calcium 80 MG Oral Tablet (Lipitor) TAKE ONE TABLET BY MOUTH EVERY DAY Omeprazole 20 MG Oral Capsule Delayed Release (PriLOSEC) TAKE ONE CAPSULE BY MOUTH TWICE DAILY hydrOXYzine HCl 25 MG Oral Tablet TAKE ONE TABLET BY MOUTH THREE TIMES DAILY NEEDED FOR ANXIETY CPAP every night at bedtime. [place]thorne-3 Fatty Acids (FISH OIL) 1000 MG Capsule Take 1 Capsule by mouth in the morning. acetaminophen (TYLENOL) 500 MG Tablet Take 2 Tabs by mouth every 8 hours as needed for Pain or Fever. PHYSICAL EXAM: BP 110/76 (BP Site: Left Arm, BP Position: Sitting, BP Cuff Size: Large) | Pulse 66 | Resp 14 | Ht 1.753 m (5' 9") | Wt 108.4 kg (239 lb) | SpO2 96% | BMI 35.29 kg/m | BSA 2.3 m General: alert, no acute distress Head: NC/AT Lungs: normal respiratory effort Neuro: speech clear and appropriate ASSESSMENT/PLAN: Obstructive sleep apnea - severe by AHI criteria - mask fitting (discussed [employer] FFM; he does think he would prefer tubing attaching to top of headgear rather than front of mask) and update any supplies needed (including power cord) ordered - DME: [facility] - Routine cleaning and change of supplies as needed. - Continue to avoid driving when feeling sleepy/drowsy. Mask fitting; also needs new humidifier chamber, power cord, as he believes he sent those back to [facility] with the recalled device. Restart BiPAP once he has sufficient supplies. Discussed that if BiPAP is not well tolerated, we may still plan for BiPAP titration study in future -- will see how he does with the current device/setting & new mask style first. Follow-up with Sleep Medicine in February as scheduled. Evita Gunn DO documented in this encounter Nursing Notes * Charley Sierra LPN - 10/19/2022 2:11 PM EDT Pierre Mead [phone] Body mass index is 35.29 kg/m. Current CDL License: Yes DME: [facility] The patient was identified by name and date of .:yes Patient is here for return sleep visit for LATRICIA, treated with BIPAP. EPWORTH SLEEPINESS SCALE: 0 = would never doze 1 = slight chance of dozing 2 = moderate chance of dozing 3 = high chance of dozing Sitting and reading - 0 Watching TV - 0 Sitting, inactive in a public place - 0 Passenger in a car - 0 Lying down to rest - 0 Sitting and talking - 0 Sitting quietly after lunch - 0 In a car, stopped in traffic - 0 Total - 0 FOSQ-10 Q1. Do you have difficulty concentrating on things you do because you are sleepy or tired?No Q2. Do you generally have difficulty remembering things because you are sleepy or tired?No Q3. Do you have difficulty operating a motor vehicle for short distances (less than 100 miles) because you become sleepy? No Q4. Do you have difficulty operating a motor vehicle for long distances (greater than 100 miles) because you become sleepy?No Q5. Do you have difficulty visiting your family or friends in their home because you become sleepy or tired?No Q6. Has your relationship with family, friends or work colleagues been affected because you are sleepy or tired?No Q7. Do you have difficulty watching a movie or video because you become sleepy or tired?No Q8. Do you have difficulty being as active as you want to be in the evening because you are sleepy or tired?No Q9. Do you have difficulty being as active as you want to be in the morning because you are sleepy or tired?Yes, a little Q10. Has your mood been affected because you are sleepy or tired? No documented in this encounter Plan of Treatment Upcoming Encounters Date Type Specialty Care Team Description 12/08/2022 Office Visit Gastroenterology Thuy Knott, DO [address] [place] [address] 02/23/2023 Office Visit Sleep Disorders Evita Gunn, [address] [place] [address] 04/09/2023 Laboratory Laboratory [address] [place] [address] 04/12/2023 Office Visit [facility] [address] Scheduled Procedures Name Priority Associated Diagnoses Date/Ti [...] as of this encounter Visit Diagnoses Diagnosis Obstructive sleep apnea- Primary Obstructive sleep apnea (adult) (pediatric) documented in this encounter Care Teams Kennel Aide Relationship Specialty Start Date End Date Dayana Ortiz MD [address] [place] [address], [place] [address] PCP - General 10/16/07 documented as of this encounter
--- OUTSIDE RECORDS SUMMARY | 2022-12-27 04:30 | External Medical Summary | Summary of Care ---
Author Name Unknown Organization [facility] Address [address] [place] [address] Phone [phone] Care Team Providers Care Firer Diesel Locomotive Name Role Phone Dayana Ortiz MD Primary Care Provider + Reason for Visit * Reason Comments Follow Up The pt stated he is here for a follow up appointment Encounter Details Date Type Department Care Team Description 10/12/2022 Office Visit General Internal Medicine [facility] [place] [address] [place] [address] Dayana Ortiz MD [address] [place] [address] Gastroesophageal reflux disease without esophagitis*; Need for hepatitis B vaccination; Moderate episode of recurrent major depressive disorder (HCC); CSA (central sleep apnea); LATRICIA (obstructive sleep apnea); Chronic maxillary sinusitis; Hyperlipidemia with target LDL less than 100; Influenza A; Wheezing; Chronic bilateral low back pain without sciatica; Thumb pain, right; Prediabetes Allergies Active Allergy Reactions Severity Noted Date [...] or Fever. 100 Tab 0 7 Active N[place]-3 Fatty Acids (FISH OIL) 1000 MG CapsuleIndicati [...] mo ns & Above, IM , (Flulaval) 02/09/2022,03/09/2020,12/03/2018,2016 Seasonal Influenza, Quadriva lent, No Preserve, IM [...] for Pain or Fever. 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 Entered by: Juice Bojorquez [...] encounter Miscellaneous Notes * Addendum Note - Dayana Ortiz MD - 10/12/2022 8:16 AM EDTAddended by: DAYANA ORTIZ on: 10/12/2022 08:16 AM Modules accepted: Level of Service documented in this encounter Plan of Treatment Upcoming Encounters Date Type Specialty Care Team Description 12/08/2022 Office Visit Gastroenterology Thuy Knott, DO [address] [place] [address] Scheduled Orders Name Type Priority Associated Diagnoses [...] for Pts 12 and Over 03/29/2022 03/29/2021 Influenza Vaccine (FLU shot) (#1) 2022 02/09/2022, 03/09/2020, 03/09/2020, Additional history exists COLONOSCOPY-EVERY 3 YRS AGES 18-100 02/28/2025 02/28/2022, 02/28/2022, 10/18/2018, Additional history exists Diabetes Screening 05/30/2025 05/30/2022, 0 05/30/2022, 04/25/2021, Additional history exists Lipid Panel 10/11/2027 10/10/2022, 05/07, 04/25/2021, Additional history exists DTaP,Tdap,and Td Vaccines (5 - Td or Tdap) 06/06/2028 06/06/2018, 08/26/2015, 08/26/2015, Additional history exists Hepatitis C Screening Completed 03/15/2018, 010 Zoster Vaccines Completed 09/23/2021, 06/23/2021 GARDASIL-HPV IMMUNIZATION SERIES Aged Out No longer [...] Thumb pain, right Prediabetes Other abnormal glucose documented in this encounter Care Teams Firer Diesel Locomotive Relationship Specialty Start Date End Date Dayana Ortiz MD [facility] [place] [address] PCP - General 10/16/07 documented as of this encounter"
--- OUTSIDE RECORDS SUMMARY | 2022-12-27 04:30 | External Medical Summary | Summary of Care ---
Author Name Unknown Organization [facility] Address [address] [place] [address] Phone [phone] Care Team Providers Care Tram Operator Name Role Phone Dayana Ortiz MD Primary Care Provider + Encounter Details Date Type Department Care Team Description 10/18/2022 Telephone Pulmonary Medicine, [facility] [address] [place] [address] Evita Gunn DO [address] [place] [address] Allergies Active Allergy Reactions Severity Noted Date [...] or Fever. 100 Tab 0 12/01/2016 Active [place]-3 Fatty Acids (FISH OIL) 1000 MG CapsuleIndications [...] encounter Miscellaneous Notes * Telephone Encounter - LATRICIA Lees - 10/18/2022 9:24 AM EDT Mask fitting order entered into . documented in this encounter Plan of Treatment Upcoming Encounters Date Type Specialty Care Team Description 10/19/2022 Office Visit Sleep Disorders Evita Gunn, DO [address] [place] [address] 12/08/2022 Office Visit Gastroenterology Thuy Knott, DO [address] [place] [address] 02/23/2023 Office Visit Sleep Disorders Evita Gunn, DO [address] [place] [address] 04/09/2023 Laboratory Laboratory [address] [place] [address] 04/12/2023 Office Visit Internal Medicine Dayana Ortiz MD 200 [facility] [place] [address] Scheduled Procedures Name Priority Associated Diagnoses Date/Ti [...] filedocumented as of this encounter Care Teams Tram Operator Relationship Specialty Start Date End Date Dayana Ortiz MD [address] [facility] [place] [address] PCP - General 10/16/07 documented as of this encounter
--- OUTSIDE RECORDS SUMMARY | 2022-12-27 04:30 | External Medical Summary | Summary of Care ---
Author Name Unknown Organization [facility] Address [address] [place] [address] Phone [phone] Care Team Providers Care Sandwich Counter Attendant Name Role Phone Dayana Ortiz MD Primary Care Provider + Reason for Visit * Reason Comments Follow Up The pt stated he is here for a follow up appointment Encounter Details Date Type Department Care Team Description 10/12/2022 Office Visit General Internal Medicine [facility] [place] [address] [place] [address] Dayana Ortiz MD 200 [facility] [place] [address] Gastroesophageal reflux disease without esophagitis*; Need for [...] or Fever. 100 Tab 0 7 Active [place]-3 Fatty Acids (FISH OIL) 1000 MG CapsuleIndicati [...] for Pain or Fever. 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 Entered by: Juice Bojorquez [...] Knott, DO [address] [place] [address] 02/23/2023 Office Visit Sleep Disorders Evita Gunn, DO [address] [place] [address] 04/09/2023 Laboratory Laboratory [address] [place] [address] 04/12/2023 Office Visit Internal Medicine Dayana Ortiz MD [address] [place], [place] [address] [address] Scheduled Orders Name Type Priority Associated Diagnoses [...] Additional history exists Lipid Panel 10/11/2027 10/10/2022, 04/06/2022, 04/25/2021, Additional history exists DTaP,Tdap,and Td Vaccines [...] influenza documented in this encounter Care Teams Sandwich Counter Attendant Relationship Specialty Start Date End Date Dayana Ortiz MD [address] [facility] [place] [address] PCP - General 10/16/07 documented as of this encounter"
--- OUTSIDE RECORDS SUMMARY | 2022-12-27 04:31 | External Medical Summary | Summary of Care ---
Author Name Unknown Organization [facility] Address [address] [place] [address] Phone [phone] Care Team Providers Care Instructional Facilitator Name Role Phone Dayana Ortiz MD Primary Care Provider + Reason for Referral * Precert (Within 10 days (routine)) - Pending Review Specialty Diagnoses / Procedures Referred By Armin man Referred To Contact Sleep Disorders Diagnoses Obstructive sleep apnea CSA (central sleep apnea) Intolerance of continuous positive airway pressure (CPAP) ventilation Procedures SLEEP STUDY, W/ CPAP (TREATMENT SETTINGS) SLEEP STUDY, W/ CPAP (TREATMENT SETTINGS) Heath Mario DO [address] [place] [id number] Referral ID Status Reason Start Date Expiration Date V isits Requested Visits Authorized [id number] Pending Review 08/18/2022 999 999 Reason for Visit * Reason Onset Date Comments FYI 08/16/2022 Auth denied Encounter Details Date Type Department Care Team Description 08/16/2022 [facility] [address] [place] [phone] Heath Mario DO [address] [place] [phone] FYI (Auth denied) Allergies Active Allergy Reactions Severity Noted Date Comments Cinnamon Other (Please comment) 04/24/2016 chest tightness Morphine Nausea/vomiting Medium 04/30/2012 Severe nausea and vomiting Penicillins Rash 11/23/1999 Other reaction(s): rash documented as of this encounter (statuses as of 08/29/2022) Medications Medication Sig Dispensed Refills Start Date End Date Status acetaminophen (TYLENOL) 500 MG TabletIndications: Pain of both shoulder joints,Spasm of muscle Take 2 Tabs by mouth every 8 hours as needed for Pain or Fever. 100 Tab 0 12/01/2016 Active Zap-3 Fatty Acids (FISH OIL) 1000 MG CapsuleIndications :takes in the evening Take 1 Capsule by mouth in the morning. 0 Active Coenzyme Q10 (CO Q-10) 100 MG CAPSIndications:ta kes in the evening Take by mouth. Indications: takes in the evening 0 Active CPAP every night at bedtime. 0 Active hydrOXYzine HCl 25 MG Oral TabletIndications: KENRICK (generalized anxiety disorder) TAKE ONE TABLET BY MOUTH THREE TIMES DAILY NEEDED FOR ANXIETY 60 Tablet 2 03/10/2021 Active Additional Information Patient not taking.Reported on 07/27/2022 Omeprazole 20 MG Oral Capsule Delayed Release (PriLOSEC) TAKE ONE CAPSULE BY MOUTH TWICE DAILY 60 Capsule 5 11/28/2021 Active Melatonin 10 MG Oral Tablet Take 1 Tablet by mouth at bedtime. 0 Active Atorvastatin Calcium 80 MG Oral Tablet (Lipitor)Indicatio ns:Hyperlipidemia with target LDL less than 100 TAKE ONE TABLET BY MOUTH EVERY DAY 90 Tablet 3 01/11/2022 Active Ventolin HFA 108 (90 Base) MCG/ACT Inhalation Aerosol SolutionIndication s:Influenza A Inhale 2 Puffs by mouth every 4 hours as needed for Wheezing. 7 g 1 01/13/2022 Active Additional Information Patient not taking.Reported on 07/27/2022 Dexlansoprazole 30 MG Oral Capsule Delayed Release Take 1 Capsule by mouth in the morning and 1 Capsule in the evening. 180 Capsule 3 05/30/2022 Active Fenofibrate 160 MG Oral Tablet (Lofibra)Indicatio ns:Hyperlipidemia with target LDL less than 100 TAKE ONE TABLET BY MOUTH EVERY DAY WITH MEAL 30 Tablet 5 07/30/2022 Active documented as of this encounter (statuses as of 08/29/2022) Active Problems Problem Noted Date Moderate episode [...] of inactive term Gastric ulcer Overview: ruptured 4/210/7 Migraine variant documented as of this encounter (statuses as of 08/29/2022) Resolved Problems Problem Noted Date Resolved Date Dyslipidemia, goal to be determined 01/12/2009 03/26/2012 Overview: Per Lipid Taxonomy. Mixed dyslipidemia 08/29/2003 01/12/2009 Overview: Per Lipid Taxonomy. ANGINA PECTORIS NEC-NOS 07/01/2003 10/12/19 05 documented as of this encounter (statuses as of 08/29/2022) Immunizations Name Administration Dates Next Due Seasonal Influenza, Quadriva lent, No Preserve, 6 Mons & Above, IM 02/09/2022,03/09/2020,12/03/2018,2016 Seasonal Influenza, Quadriva lent, No Preserve, [...] Miscellaneous Notes * Telephone Encounter - LATRICIA Campos - 08/29/2022 12:39 PM EDT Pt calling back to get clarification on if he should still go to his sleep study tonight, please call pt to clarify. Thank you! * Telephone Encounter - Carmen Morton - 08/25/2022 1:28 PM EDT Letter was fax on 08/24. I contacted patient today to inform him. Lmom. I am also sending myg. * Telephone Encounter - Heath Mario DO - 08/24/2022 4:35 PM EDT Appeal letter written. * Telephone Encounter - Carmen Morton - 08/24/2022 2:09 PM EDT Called again to set up appeal. Spoke to rep who told me that we have to fax a letter to [facility] [phone] and leonela expedite appeal on coversheet.This takes 3 days. The letter needs to have newinformation in it explaining why we are appealing. * Telephone Encounter - Carmen Morton - 08/24/2022 8:39 AM EDT Peer to peer never called back. I contacted [facility] and told me since the peer to peer was done once that is upheld. We now have to request an appeal. Attempted to setup and was unable to reach anyone. * Telephone Encounter - Heath Mario DO - 08/22/2022 4:34 PM EDT Spoke with a promotional representative from [facility], who verified that the information they have on file is what we received in the letter. Provided phone number to call to [place]che[id number] [id number]: [phone]. Phone call to the above number goes to a voicemail to request a call for [id number]. Requested call for tomorrow (08/23/22) around 12:30 PM or 4 PM. FYI to nursing, as that call may come through the nurse's line. * Telephone Encounter - Heath Mario DO - 08/22/2022 9:55 AM EDT Received letter from [facility] regarding outcome of [id number], stating that [id number] and [id number] are both denied because "the provider stated she's OK with a home sleep study for cpap titration." This was not my understanding of our conversation. My understanding was that the split-night study was denied because updated diagnostic testing was not required, and that we should be able to do the BiPAP titration 66986 as a stand-alone study, rather than the split-night study. A home sleep apnea test cannot do a BiPAP titration, so if an updated diagnostic test is not required, then the study indicated is the 56342 BiPAP titration study, not a home sleep apnea test. Letter states, "Providers who have questions can call ." Phone call to this number, not able to speak with a person at this time, scheduled a call-back for later today. * Telephone Encounter - Carmen Morton - 08/18/2022 4:12 PM EDT New order fax to [facility] * Addendum Note - Heath Mario DO - 08/18/2022 2:02 PM EDTAddended by: HEATH MARIO on: 08/18/2022 02:02 PM Modules accepted: Orders * Telephone Encounter - Heath Mario DO - 08/18/2022 1:49 PM EDT Received phone call from Dr. Hylton with [facility] for [id number]. Baseline portion denied due to known diagnosis of sleep apnea. Should be able to do titration study without updating baseline. Will plan for BiPAP titration study alone, rather than split-night study. Updated order placed for BiPAP titration study. MyG sent to update patient. * Telephone Encounter - Carmen Morton - 08/17/2022 8:55 AM EDT Peer to peer is set for Tomorrow 08/17 at 1:[address] [facility] Hylton. * Telephone Encounter - Heath Maroi DO - 08/16/2022 4:29 PM EDT In-lab study (split-night) was recommended due to prior presence of central apneas (central > obstructive events on his 2009 PSG), CPAP intolerance, need for updated BiPAP titration. Please set up [id number]. * Telephone Encounter - Carmen Morton - 08/16/2022 3:54 PM EDT Sleep study was denied. Peer to peer or hst?? documented in this encounter Plan of Treatment Upcoming Encounters Date Type Specialty Care Team Description 09/26/2022 Office Visit Pain Medicine Baldomero Beckford, [address] [place] [phone] 10/12/2022 Office Visit Internal Medicine Dayana Ortiz MD [address] [place], [place] [address] [address] 12/08/2022 Office Visit Gastroenterology Thuy Knott DO [address] [place] [address] 12/27/2022 Office Visit Dermatology Barbara Ward PA-C [address] [place] [address] [place] [address] Scheduled Orders Name Type Priority Associated Diagnoses Orde r Schedule SLEEP STUDY, W/ CPAP (TREATMENT SETTINGS) Procedures Routine Obstructive sleep apnea CSA (central sleep apnea) Intolerance of continuous positive airway pressure (CPAP) ventilation Ordered: 08/18/2022 Scheduled Procedures Name Priority Associated Diagnoses Date/Ti [...] 05/30/2022, 04/25/2021, Additional history exists Lipid Panel 05/31/2027 05/30/2022, 04/06, 12/01/2020, Additional history exists DTaP,Tdap,and Td Vaccines (5 [...] apnea- Primary Obstructive sleep apnea (adult) (pediatric) CSA (central sleep apnea) Unspecified sleep apnea Intolerance of continuous positive airway pressure (CPAP) ventilation documented in this encounter Care Teams Instructional Facilitator Relationship Specialty Start Date End Date Dayana Ortiz MD [address] [place] [address] PCP - General 10/16/07 documented as of this encounter
--- OUTSIDE RECORDS SUMMARY | 2022-12-27 04:31 | External Medical Summary ---
Author Name Unknown Address Unknown Organization K01:[facility] - [address] [facility]. [place] [address] Laboratory Report Ordering Provider Test Date Status CHARLES ZHOU 10/10/2022 08:41:30 Final Observation Date Value Abnormality Reference (Units ) Status Triglyceride 10/10/2022 08:41:30 322 Above high normal <=174 (mg/dL) Final Triglyceride Reference Range s (mg/dL):
<150 Acceptable
150-174 Borderline high
175-499 High
>=500 Very high Cholesterol 10/10/2022 08:41:30 214 Above high normal <200 (mg/dL) Final Total Cholesterol Reference Ranges (mg/dL):
<200 Desirable
200-239 Borderline high
>=240 High HDL 10/10/2022 08:41:30 39 Below low normal >39 (mg/dL) Final HDL Cholesterol Reference Ra nges (mg/dL):
>=60 High (Desirable)
<50 Low (Undesirable) For Females
<40 Low (Undesirable) For Males NON-HDL CHOLESTEROL 10/10/2022 08:41:30 175 Above high normal <=159 (mg/dL) Final Non-HDL Cholesterol Referenc e Range (mg/dL):
<100 Target level for high risk ASCVD patient
<130 Optimal for general population
130-159 Near optimal for general population
160-189 Borderline High
190-219 High
>=220 Very High LDL, (calculated) 10/10/2022 08:41:30 111 <= 129 (mg/dL) Final LDL Cholesterol Reference Ra nges (mg/dL):
<70 Target level for high risk ASCVD patient
<100 Optimal for general population
100-129 Near optimal for general population
130-159 Borderline high
160-189 High
>=190 Very high Performing Location LABORATORY [facility] - [address] [facility] [address]
--- OUTSIDE RECORDS SUMMARY | 2022-12-27 04:31 | External Medical Summary | Summary of Care ---
Author Name Unknown Organization [facility] Address [address] [place] [address] Phone [phone] Care Team Providers Care Utilities Ground Worker Name Role Phone Dayana Ortiz MD [...] CPAP (TREATMENT SETTINGS) Heath Mario DO [address] [place] [id number] Referral ID Status Reason Start Date Expiration Date V isits Requested Visits Authorized [id number] Pending Review 08/18/2022 999 999 Reason for Visit * Reason Onset Date Comments FYI 08/16/2022 Auth denied Encounter Details Date Type Department Care Team Description 08/16/2022 [facility] [address] [place] [phone] Heath Mario DO [address] [place] [address] FYI (Auth denied) Allergies Active Allergy Reactions Severity Noted Date Comments Cinnamon Other (Please comment) 04/24/2016 chest tightness Morphine Nausea/vomiting Medium 04/30/2012 Severe nausea and vomiting Penicillins Rash 11/23/1999 Other reaction(s): rash documented as of this encounter (statuses as of 08/22/2022) Medications Medication Sig Dispensed Refills Start Date End Date Status acetaminophen (TYLENOL) 500 MG TabletIndications: Pain of both shoulder joints,Spasm of muscle Take 2 Tabs by mouth every 8 hours as needed for Pain or Fever. 100 Tab 0 12/01/2016 Active Elgin-3 Fatty Acids (FISH OIL) 1000 MG CapsuleIndications :takes in the evening Take 1 Capsule by mouth in the morning. 0 Active Coenzyme Q10 (CO Q-10) 100 MG CAPSIndications:ta kes in the evening Take by mouth. Indications: takes in the evening 0 Active CPAP every night at bedtime. 0 Active hydrOXYzine HCl 25 MG Oral TabletIndications: KERNICK (generalized anxiety disorder) TAKE ONE TABLET BY [...] as of this encounter (statuses as of 08/22/2022) Active Problems Problem Noted Date Moderate episode [...] as of this encounter (statuses as of 08/22/2022) Resolved Problems Problem Noted Date Resolved Date Dyslipidemia, goal to be determined 01/12/2009 03/26/2012 Overview: Per Lipid Taxonomy. Mixed dyslipidemia 08/29/2003 01/12/2009 Overview: Per Lipid Taxonomy. ANGINA PECTORIS NEC-NOS 07/01/2003 10/12/19 05 documented as of this encounter (statuses as of 08/22/2022) Immunizations Name Administration Dates Next Due Seasonal [...] encounter Miscellaneous Notes * Telephone Encounter - Heath Mario, - 08/22/2022 4:34 PM EDT Spoke with a territory representative from [employer], who verified that the information they have on file is what we received in the letter. Provided phone number to call to [id number] [id number]: [phone]. Phone call to the above number goes to a voicemail to request a call for [id number]. Requested call for tomorrow (08/23/22) around 12:30 PM or 4 PM. FYI to nursing, as that call may come through the nurse's line. * Telephone Encounter - Heath Mario DO - 08/22/2022 9:55 AM EDT Received letter from [facility] regarding outcome of [id number], stating that [id number] and [id number] are both denied because "the provider stated she's OK with a home sleep study for cpap titration." This was not my understanding of our conversation. My understanding was that the split-night study was denied because updated diagnostic testing was not required, and that we should be able to do the BiPAP titration 15823 as a stand-alone study, rather than the split-night study. A home sleep apnea test cannot do a BiPAP titration, so if an updated diagnostic test is not required, then the study indicated is the 25984 BiPAP titration study, not a home sleep [...] Received phone call from Dr. Hylton with [facility] for [id number]. Baseline portion denied due to known diagnosis [...] Dr. Hylton. * Telephone Encounter - Heath Mario DO - 08/16/2022 4:29 PM EDT In-lab study (split-night) was recommended due to prior presence of central apneas (central > obstructive events on his 2009 PSG), CPAP intolerance, need for updated BiPAP titration. Please set up [id number]. * Telephone Encounter - Carmen Morton - 08/16/2022 3:54 PM EDT Sleep study was denied. Peer to peer or hst?? documented in this encounter Plan of Treatment Upcoming Encounters Date Type Specialty Care Team Description 08/29/2022 Office Visit Internal Medicine Dayana Ortiz MD [address] [facility] [place] [place] [address] 09/26/2022 Office Visit Pain Medicine Baldomero Beckford, [address] [place] [phone] 12/08/2022 Office Visit Gastroenterology Thuy Knott DO [address] [place] [address] 12/27/2022 Office Visit Dermatology Barbara Ward PA-C [address] [place] [address] [place] [address] Scheduled Orders Name Type Priority Associated Diagnoses [...] ventilation documented in this encounter Care Teams Utilities Ground Worker Relationship Specialty Start Date End Date Dayana Ortiz MD [address] [place] [address] PCP - General 10/16/07 documented as of this encounter
--- OUTSIDE RECORDS SUMMARY | 2022-12-27 04:31 | External Medical Summary | Summary of Care ---
Author Name Unknown Organization [facility] Address [address] [place] [address] Phone [phone] Care Team Providers Care Water Pollution Control Inspector Name Role Phone Dayana Ortiz MD Primary [...] CPAP (TREATMENT SETTINGS) Heath Mario DO [address] [place] [id number] Referral ID Status Reason Start Date Expiration Date V isits Requested Visits Authorized [id number] Pending Review 08/18/2022 999 999 Reason for Visit * Reason Onset Date Comments FYI 08/16/2022 Auth denied Encounter Details Date Type Department Care Team Description 08/16/[facility] [address] [place] [phone] Heath Mario DO [address] [place] [address] FYI (Auth denied) Allergies Active Allergy Reactions Severity Noted Date Comments Cinnamon Other (Please comment) 04/24/2016 chest tightness Morphine Nausea/vomiting Medium 04/30/2012 Severe nausea and vomiting Penicillins Rash 11/23/1999 Other reaction(s): rash documented as of this encounter (statuses as of 08/21/2022) Medications Medication Sig Dispensed Refills Start Date End Date Status acetaminophen (TYLENOL) 500 MG TabletIndications: Pain of both shoulder joints,Spasm of muscle Take 2 Tabs by mouth every 8 hours as needed for Pain or Fever. 100 Tab 0 12/01/2016 Active Lovell-3 Fatty Acids (FISH OIL) 1000 MG CapsuleIndications [...] as of this encounter (statuses as of 08/21/2022) Active Problems Problem Noted Date Moderate episode [...] as of this encounter (statuses as of 08/21/2022) Resolved Problems Problem Noted Date Resolved Date Dyslipidemia, goal to be determined 01/12/2009 03/26/2012 Overview: Per Lipid Taxonomy. Mixed dyslipidemia 08/29/2003 01/12/2009 Overview: Per Lipid Taxonomy. ANGINA PECTORIS NEC-NOS 07/01/2003 10/12/19 05 documented as of this encounter (statuses as of 08/21/2022) Immunizations Name Administration Dates Next Due Seasonal [...] PM EDT New order fax to [facility] * Addendum Note - Heath Mario DO - 08/18/2022 2:02 PM EDTAddended by: HEATH MARIO on: 08/18/2022 02:02 PM Modules accepted: Orders * Telephone Encounter - Heath Mario DO - 08/18/2022 1:49 PM EDT Received phone call from Dr. Hylton with [facility] for [id number]. Baseline portion denied due to known diagnosis [...] apneas (central > obstructive events on his 2010 PSG), CPAP intolerance, need for updated BiPAP titration. Please set up [id number]. * Telephone Encounter - Carmen Morton - 08/16/2022 3:54 PM EDT Sleep study was denied. Peer to peer or hst?? documented in this encounter Plan of Treatment Upcoming Encounters Date Type Specialty Care Team Description 08/29/2022 Office Visit Internal Medicine [facility] [address] [facility] [place] [address] 09/26/2022 Office Visit Pain Medicine Baldomero Beckford DO [address] [place] [phone] 12/08/2022 Office Visit Gastroenterology Thuy Knott, [address] [place] [address] 12/27/2022 Office Visit Dermatology Barbara Ward PA-C [address] [place] [address] [place] [address] Scheduled Orders Name Type Priority Associated Diagnoses [...] ventilation documented in this encounter Care Teams Water Pollution Control Inspector Relationship Specialty Start Date End Date Dayana Ortiz MD [address] [facility] [place] [address] PCP - General 10/16/07 documented as of this encounter
--- OUTSIDE RECORDS SUMMARY | 2022-12-27 04:31 | External Medical Summary | Summary of Care ---
Author Name Unknown Organization [facility] Address [address] [place] [address] Phone [phone] Care Team Providers Care Fourth Hand Name Role Phone Dayana Ortiz MD Primary [...] CPAP (TREATMENT SETTINGS) Heath Mario DO [address] [place] [id number] Referral ID Status Reason Start Date Expiration Date V isits Requested Visits Authorized [id number] Pending Review 08/18/2022 999 999 Reason for Visit * Reason Onset Date Comments FYI 08/16/2022 Auth denied Encounter Details Date Type Department Care Team Description 08/16/20[facility] [address] [place] [phone] Heath Mario DO [address] [place] [address] FYI (Auth denied) Allergies Active Allergy Reactions [...] or Fever. 100 Tab 0 12/01/2016 Active Mellette-3 Fatty Acids (FISH OIL) 1000 MG CapsuleIndications [...] again to set up appeal. Spoke to [facility] who told me that we have to fax a letter to [facility] [phone] and leonela expedite appeal on coversheet.This takes 3 days. The letter needs to have newinformation in it explaining why we are appealing. * Telephone Encounter - Carmen Morton - 08/24/2022 8:39 AM EDT Peer to peer never called back. I contacted [facility] and told me since the peer to peer was done once that is upheld. We now have to request an appeal. Attempted to setup and was unable to reach anyone. * Telephone Encounter - Heath Mario DO - 08/22/2022 4:34 PM EDT Spoke with a customer care representative from [facility], who verified that the information they have on file is what we received in the letter. Provided phone number to call [place]che[id number] [id number]: [phone]. Phone call to the above number goes to a voicemail to request a call for [id number]. Requested call for tomorrow (08/23/22) around 12:30 PM or 4 PM. FYI to nursing, as that call may come through the nurse's line. * Telephone Encounter - Heath Mario DO - 08/22/2022 9:55 AM EDT Received letter from [facility] regarding outcome of [id number], stating that [id number] and 05548 are both denied because "the provider stated she's OK with a home sleep study for cpap titration." This was not my understanding of our conversation. My understanding was that the split-night study was denied because updated diagnostic testing was not required, and that we should be able to do the BiPAP titration 52707 as a stand-alone study, rather than the split-night study. A home sleep apnea test cannot do a BiPAP titration, so if an updated diagnostic test is not required, then the study indicated is the 54362 BiPAP titration study, not a home sleep [...] Received phone call from Dr. Hylton with [facility] for [id number]. Baseline portion denied due to known diagnosis [...] for updated BiPAP titration. Please set up [id number]. * Telephone Encounter - Carmen Morton - 08/16/2022 3:54 PM EDT Sleep study was denied. Peer to peer or hst?? documented in this encounter Plan of Treatment Upcoming Encounters Date Type Specialty Care Team Description 09/26/2022 Office Visit Pain Medicine Baldomero Beckford DO [address] [place] [phone] 10/12/2022 Office Visit [facility] [address] 12/08/2022 Office Visit Gastroenterology Thuy Knott DO [address] [place] [address] 12/27/2022 Office Visit Dermatology Barbara Ward PA-C [address] [place] [address] [place] [address] Scheduled Orders Name Type Priority Associated Diagnoses [...] ventilation documented in this encounter Care Teams Fourth Hand Relationship Specialty Start Date End Date Dayana Ortiz MD [address] [facility] [place] [address] PCP - General 10/16/07 documented as of this encounter
--- OUTSIDE RECORDS SUMMARY | 2022-12-27 04:31 | External Medical Summary ---
Author Name Unknown Address Unknown Organization K01:LABORATORY [facility] - [address] [place] [address] Laboratory Report Ordering Provider Test Date Status CHARLES ZHOU 10/10/2022 08:41:30 Final Observation Date Value Abnormality Reference (Units ) Status Albumin 10/10/2022 08:41:30 4.4 3.8-5.0 (g/dL) Final AST (Aspartate aminotransferase) 10/10/2022 08:41:30 27 10-50 (U/L) Final Alk Phos 10/10/2022 08:41:30 55 35-130 (U/L) Final ALT (Alanine aminotransferase) 10/10/2022 08:41:30 41 10-50 (U/L) Final Bilirubin, Total 10/10/2022 08:41:30 0.4 <=1.2 (mg/dL) Final Bilirubin, Direct 10/10/2022 08:41:30 <0.2 0.0-0.3 (mg/dL) Final Protein 10/10/2022 08:41:30 6.5 6.0-8.3 (g/dL) Final Performing Location LABORATORY [facility] - [address] [place] [address]
--- OUTSIDE RECORDS SUMMARY | 2022-12-27 04:31 | External Medical Summary | Summary of Care ---
Author Name Unknown Organization [facility] Address [address] [place] [address] Phone [phone] Care Team Providers Care Multi Punch Operator Name Role Phone Dayana Ortiz MD [...] CPAP (TREATMENT SETTINGS) Heath Mario DO [address] [place] [id number] Referral ID Status Reason Start Date Expiration Date V isits Requested Visits Authorized [id number] Pending Review 08/18/2022 999 999 Reason for Visit * Reason Onset Date Comments FYI 08/16/2022 Auth denied Encounter Details Date Type Department Care Team Description 08/16/2022 [facility] [address] [place] [phone] Heath Mario DO [address] [place] [address] FYI (Auth denied) Allergies Active Allergy Reactions Severity Noted Date Comments Cinnamon Other (Please comment) 04/24/2016 chest tightness Morphine Nausea/vomiting Medium 04/30/2012 Severe nausea and vomiting Penicillins Rash 11/23/1999 Other reaction(s): rash documented as of this encounter (statuses as of 08/24/2022) Medications Medication Sig Dispensed Refills Start Date End Date Status acetaminophen (TYLENOL) 500 MG TabletIndications: Pain of both shoulder joints,Spasm of muscle Take 2 Tabs by mouth every 8 hours as needed for Pain or Fever. 100 Tab 0 12/01/2016 Active [place]-3 Fatty Acids (FISH OIL) 1000 MG CapsuleIndications [...] as of this encounter (statuses as of 08/24/2022) Active Problems Problem Noted Date Moderate episode [...] as of this encounter (statuses as of 08/24/2022) Resolved Problems Problem Noted Date Resolved Date Dyslipidemia, goal to be determined 01/12/2009 03/26/2012 Overview: Per Lipid Taxonomy. Mixed dyslipidemia 08/29/2003 01/12/2009 Overview: Per Lipid Taxonomy. ANGINA PECTORIS NEC-NOS 07/01/2003 10/12/19 05 documented as of this encounter (statuses as of 08/24/2022) Immunizations Name Administration Dates Next Due Seasonal [...] to peer never called back. I contacted [employer] and told me since the peer to peer was done once that is upheld. We now have to request an appeal. Attempted to setup and was unable to reach anyone. * Telephone Encounter - Heath Mario DO - 08/22/2022 4:34 PM EDT Spoke with a parts representative from [employer], who verified that the information they have on file is what we received in the letter. Provided phone number to call to [place]che[id number] [id number]: [phone]. Phone call to the above number goes to a voicemail to request a call for [id number]. Requested call for tomorrow (08/23/22) around 12:30 PM or 4 PM. FYI to nursing, as that call may come through the nurse's line. * Telephone Encounter - Heath Mario DO - 08/22/2022 9:55 AM EDT [facility] [id number], stating that [id number] and [id number] are both denied because "the provider stated she's OK with a home sleep study for cpap titration." This was not my understanding of our conversation. My understanding was that the split-night study was denied because updated diagnostic testing was not required, and that we should be able to do the BiPAP titration 89245 as a stand-alone study, rather than the split-night study. A home sleep apnea test cannot do a BiPAP titration, so if an updated diagnostic test is not required, then the study indicated is the 90472 BiPAP titration study, not a home sleep [...] call from Dr. Hylton with [facility] for [id number]. Baseline portion denied due to known diagnosis [...] for updated BiPAP titration. Please set up [id number]. * Telephone Encounter - Carmen Morton - 08/16/2022 3:54 PM EDT Sleep study was denied. Peer to peer or hst?? documented in this encounter Plan of Treatment Upcoming Encounters Date Type Specialty Care Team Description 08/29/2022 Office Visit Internal Medicine Dayana Ortiz MD [address] [facility] [place] [address] 09/26/2022 Office Visit Pain Medicine Baldomero Beckford, DO [address] [place] [phone] 12/08/2022 Office Visit Gastroenterology Thuy Knott, DO [address] [place] [address] 12/27/2022 Office Visit Dermatology Barbara Ward PA-C [address] [place] [address] [place] [address] Scheduled Orders Name Type Priority Associated Diagnoses [...] ventilation documented in this encounter Care Teams Multi Punch Operator Relationship Specialty Start Date End Date Dayana Ortiz MD [address] [facility] [place] [address] PCP - General 10/16/07 documented as of this encounter
--- OUTSIDE RECORDS SUMMARY | 2022-12-27 04:31 | External Medical Summary | Summary of Care ---
Author Name Unknown Organization [facility] Address [address] [place] [address] Phone [phone] Care Team Providers Care Claim Examiner Name Role Phone Dayana Ortiz MD Primary [...] CPAP (TREATMENT SETTINGS) Heath Mario DO [address] [employer] [place] [address] Referral ID Status Reason Start Date Expiration Date V isits Requested Visits Authorized [id number] Pending Review 08/18/2022 999 999 Reason for Visit * Reason Onset Date Comments FYI 08/16/2022 Auth denied Encounter Details Date Type Department Care Team Description 08/16/2022 [facility] [address] [place] [phone] Heath Mario DO [address] [place] [address] FYI (Auth denied) Allergies Active Allergy Reactions [...] or Fever. 100 Tab 0 12/01/2016 Active [place]-3 Fatty Acids (FISH OIL) 1000 MG CapsuleIndications [...] Miscellaneous Notes * Telephone Encounter - Heath Mario DO - 08/24/2022 4:35 PM EDT Appeal letter written. * Telephone Encounter - Carmen Morton - 08/24/2022 2:09 PM EDT Called again to set up appeal. Spoke to rep who told me that we have to fax a letter to [employer] [phone] and leonela expedite appeal on coversheet.This takes 3 days. The letter needs to have newinformation in it explaining why we are appealing. * Telephone Encounter - Carmen Morton - 08/24/2022 8:39 AM EDT Peer to peer never called back. I contacted [facility] and told me since the peer to peer was done once that is upheld. We now have to request an appeal. Attempted to setup and was unable to reach anyone. * Telephone Encounter - Heath Mario DO - 08/22/2022 4:34 PM EDT Spoke with a customer sales representative from [employer], who verified that the information they have on file is what we received in the letter. Provided phone number to call to [place]che[id number] [place] [address]: [phone]. Phone call to the above number goes to a voicemail to request a call for [id number]. Requested call for tomorrow (08/23/22) around 12:30 PM or 4 PM. FYI to nursing, as that call may come through the nurse's line. * Telephone Encounter - Heath Mario DO - 08/22/2022 9:55 AM EDT Received letter from [employer] regarding outcome of [id number], stating that [id number] and [id number] are both denied because "the provider stated she's OK with a home sleep study for cpap titration." This was not my understanding of our conversation. My understanding was that the split-night study was denied because updated diagnostic testing was not required, and that we should be able to do the BiPAP titration 00913 as a stand-alone study, rather than the split-night study. A home sleep apnea test cannot do a BiPAP titration, so if an updated diagnostic test is not required, then the study indicated is the 52585 BiPAP titration study, not a home sleep apnea test. Letter states, "Providers who have questions can call ." Phone call to this number, not able to speak with a person at this time, scheduled a call-back for later today. * Telephone Encounter - Cramen Morton - 08/18/2022 4:12 PM EDT New order fax to [facility] * Addendum Note - Heath Mario DO - 08/18/2022 2:02 PM EDTAddended by: HEATH MARIO on: 08/18/2022 02:02 PM Modules accepted: Orders * Telephone Encounter - Heath Mario DO - 08/18/2022 1:49 PM EDT Received phone call from Dr. Hylton with [facility] for [id number]-py-[id number]. Baseline portion denied due to known diagnosis [...] for updated BiPAP titration. Please set up [id number]. * Telephone Encounter - Carmen Morton - 08/16/2022 3:54 PM EDT Sleep study was denied. Peer to peer or hst?? documented in this encounter Plan of Treatment Upcoming Encounters Date Type Specialty Care Team Description 08/29/2022 Office Visit Internal Medicine [facility] Ortiz MD [facility] [place] [address] 09/26/2022 Office Visit Pain Medicine Baldomero Beckford DO [address] [place] [phone] 12/08/2022 Office Visit Gastroenterology Thuy Knott DO [address] [place] [address] 12/27/2022 Office Visit Dermatology Barbara Ward PA-C [address] [place] [address] [place] [address] Scheduled Orders Name Type Priority Associated Diagnoses [...] Additional history exists Lipid Panel 05/31/2027 05/30/2022, 0302/2021, 12/01/2020, Additional history exists DTaP,Tdap,and Td Vaccines [...] ventilation documented in this encounter Care Teams Claim Examiner Relationship Specialty Start Date End Date Dayana Ortiz MD [address] [place] [address] PCP - General 10/16/07 documented as of this encounter
--- OUTSIDE RECORDS SUMMARY | 2022-12-27 04:31 | External Medical Summary | Summary of Care ---
Author Name Unknown Organization [facility] Address [address] [place] [address] Phone [phone] Care Team Providers Care Human Resources Supervisor Name Role Phone Dayana Ortiz MD [...] CPAP (TREATMENT SETTINGS) Heath Mario DO [address] [place] [id number] Referral ID Status Reason Start Date Expiration Date V isits Requested Visits Authorized [id number] Pending Review 08/18/2022 999 999 Reason for Visit * Reason Onset Date Comments FYI 08/16/2022 Auth denied Encounter Details Date Type Department Care Team Description 08/16/2022 [facility] [address] [place] [phone] Heath Mario DO [address] [place] [address] FYI (Auth denied) Allergies Active Allergy Reactions [...] or Fever. 100 Tab 0 12/01/2016 Active [place]-3 Fatty Acids (FISH OIL) 1000 MG CapsuleIndications [...] to peer never called back. I contacted [employer] and told me since the peer to peer was done once that is upheld. We now have to request an appeal. Attempted to setup and was unable to reach anyone. * Telephone Encounter - Heath Mario DO - 08/22/2022 4:34 PM EDT Spoke with a electronics parts sales representative from [employer], who verified that the information they have on file is what we received in the letter. Provided phone number to call [id number] [address]: [phone]. Phone call to the above number goes to a voicemail to request a call for [id number]. Requested call for tomorrow (08/23/22) around 12:30 PM or 4 PM. FYI to nursing, as that call may come through the nurse's line. * Telephone Encounter - Heath Mario DO - 08/22/2022 9:55 AM EDT [facility] [id number]-vy-hywu, stating that 02825 and 50664 are both denied because "the provider stated she's OK with a home sleep study for cpap titration." This was not my understanding of our conversation. My understanding was that the split-night study was denied because updated diagnostic testing was not required, and that we should be able to do the BiPAP titration 74772 as a stand-alone study, rather than the split-night study. A home sleep apnea test cannot do a BiPAP titration, so if an updated diagnostic test is not required, then the study indicated is the 01195 BiPAP titration study, not a home sleep [...] PM EDT Received phone call from Dr. Hlyton with [facility] for [id number]-[id number]. Baseline portion denied due to known diagnosis [...] for updated BiPAP titration. Please set up [id number]-[id number]. * Telephone Encounter - Carmen Morton - 08/16/2022 3:54 PM EDT Sleep study was denied. Peer to peer or hst?? documented in this encounter Plan of Treatment Upcoming Encounters Date Type Specialty Care Team Description 08/29/2022 Office Visit Internal Medicine Dayana Ortiz MD 200 [facility] [place] [address] 09/26/2022 Office Visit Pain Medicine Baldomero Beckford, DO [address] [place] [phone] 12/08/2022 Office Visit Gastroenterology Thuy Knott, DO [address] [place] [address] 12/27/2022 Office Visit Dermatology Barbara Ward PA-C [address] [place] [address] [place] [address] Scheduled Orders Name Type Priority Associated Diagnoses [...] ventilation documented in this encounter Care Teams Human Resources Supervisor Relationship Specialty Start Date End Date Dayana Ortiz MD [address] [facility] [place] [address] PCP - General 10/16/07 documented as of this encounter
--- OUTSIDE RECORDS SUMMARY | 2022-12-27 04:31 | External Medical Summary | Summary of Care ---
Author Name Unknown Organization [facility] Address [address] [place] [address] Phone [phone] Care Team Providers Care Land Leases And Rentals Manager Name Role Phone Dayana Ortiz MD [...] SLEEP STUDY, W/ CPAP (TREATMENT SETTINGS) Heath aMrio DO [address] [place] [address] Referral ID Status Reason Start Date Expiration Date V isits Requested Visits Authorized [id number] Pending Review 08/18/2022 999 999 Reason for Visit * Reason Onset Date Comments FYI 08/16/2022 Auth denied Encounter Details Date Type Department Care Team Description 08/[facility] [address] [place] [phone] Heath Mario DO [address] [place] [address] FYI (Auth denied) Allergies Active Allergy Reactions [...] or Fever. 100 Tab 0 12/01/2016 Active [place]-3 Fatty Acids (FISH OIL) 1000 MG CapsuleIndications [...] call from Dr. Hylton with [facility] for [id number]-[id number]-[id number]. Baseline portion denied due to known diagnosis [...] for updated BiPAP titration. Please set up [id number]-[id number]. * Telephone Encounter - Carmen Morton - 08/16/2022 3:54 PM EDT Sleep study was denied. Peer to peer or hst?? documented in this encounter Plan of Treatment Upcoming Encounters Date Type Specialty Care Team Description 08/29/2022 Office Visit Internal Medicine Dayana Ortiz MD [address] [facility] [place] [address] 09/26/2022 Office Visit Pain Medicine Baldomero Beckford DO [address] [place] [phone] 12/08/2022 Office Visit Gastroenterology Thuy Knott, [address] [place] [address] 12/27/2022 Office Visit Dermatology Barbara Ward PA-C [address] [place] [address] [place] [address] Scheduled Orders Name Type Priority Associated Diagnoses [...] ventilation documented in this encounter Care Teams Land Leases And Rentals Manager Relationship Specialty Start Date End Date Dayana Ortiz MD 200 [facility] [place] [address] PCP - General 10/16/07 documented as of this encounter
--- OUTSIDE RECORDS SUMMARY | 2022-12-27 04:31 | External Medical Summary | Summary of Care ---
Author Name Unknown Organization [facility] Address [address] [place] [address] Phone [phone] Care Team Providers Care Grounds Maintenance Manager Name Role Phone Dayana Ortiz MD [...] CPAP (TREATMENT SETTINGS) Heath Mario DO [address] [employer] [place] [address] Referral ID Status Reason Start Date Expiration Date V isits Requested Visits Authorized [id number] Pending Review 08/18/2022 999 999 Reason for Visit * Reason Onset Date Comments FYI 08/16/2022 Auth denied Encounter Details Date Type Department Care Team Description 08/16/20[facility] [address] [place] [phone] Heath Mario DO [address] [place] [address] FYI (Auth denied) Allergies Active Allergy Reactions Severity Noted Date Comments Cinnamon Other (Please comment) 04/24/2016 chest tightness Morphine Nausea/vomiting Medium 04/30/2012 Severe nausea and vomiting Penicillins Rash 11/23/1999 Other reaction(s): rash documented as of this encounter (statuses as of 08/25/2022) Medications Medication Sig Dispensed Refills Start Date End Date Status acetaminophen (TYLENOL) 500 MG TabletIndications: Pain of both shoulder joints,Spasm of muscle Take 2 Tabs by mouth every 8 hours as needed for Pain or Fever. 100 Tab 0 12/01/2016 Active [place]-3 Fatty Acids (FISH OIL) 1000 MG CapsuleIndications [...] as of this encounter (statuses as of 08/25/2022) Active Problems Problem Noted Date Moderate episode [...] as of this encounter (statuses as of 08/25/2022) Resolved Problems Problem Noted Date Resolved Date Dyslipidemia, goal to be determined 01/12/2009 03/26/2012 Overview: Per Lipid Taxonomy. Mixed dyslipidemia 08/29/2003 01/12/2009 Overview: Per Lipid Taxonomy. ANGINA PECTORIS NEC-NOS 07/01/2003 10/12/19 05 documented as of this encounter (statuses as of 08/25/2022) Immunizations Name Administration Dates Next Due Seasonal [...] again to set up appeal. Spoke to [facility] who told me that we have to fax a letter to [facility] [phone] and leonela expedite appeal on coversheet.This takes 3 days. The letter needs to have newinformation in it explaining why we are appealing. * Telephone Encounter - Carmen Morton - 08/24/2022 8:39 AM EDT Peer to peer never called back. I contacted [facility] and told me since the peer to peer was done once that is upheld. We now have to request an appeal. Attempted to setup and was unable to reach anyone. * Telephone Encounter - Heath Mario DO - 08/22/2022 4:34 PM EDT Spoke with a office machines sales representative from [facility], who verified that the information they have on file is what we received in the letter. Provided phone number to call [place]che[id number] [phone]: [phone]. Phone call to the above number goes to a voicemail to request a call for [id number]. Requested call for tomorrow (08/23/22) around 12:30 PM or 4 PM. FYI to nursing, as that call may come through the nurse's line. * Telephone Encounter - Heath Mario DO - 08/22/2022 9:55 AM EDT Received letter from [facility] regarding outcome of [id number], stating that 25483 and 30048 are both denied because "the provider stated she's OK with a home sleep study for cpap titration." This was not my understanding of our conversation. My understanding was that the split-night study was denied because updated diagnostic testing was not required, and that we should be able to do the BiPAP titration 09317 as a stand-alone study, rather than the split-night study. A home sleep apnea test cannot do a BiPAP titration, so if an updated diagnostic test is not required, then the study indicated is the 65073 BiPAP titration study, not a home sleep [...] from Dr. Hylton with [facility] for odco-gk-eziv. Baseline portion denied due to known diagnosis [...] for updated BiPAP titration. Please set up [id number]-[id number]. * Telephone Encounter - Carmen Morton - 08/16/2022 3:54 PM EDT Sleep study was denied. Peer to peer or hst?? documented in this encounter Plan of Treatment Upcoming Encounters Date Type Specialty Care Team Description 08/29/2022 Office Visit Internal Medicine [facility] [address] 09/26/2022 Office Visit Pain Medicine Baldomero Beckford, [address] [place] [phone] 12/08/2022 Office Visit Gastroenterology Thuy Knott DO [address] [place] [address] 12/27/2022 Office Visit Dermatology Barbara Ward PA-C [address] [place] [address] [place] [address] Scheduled Orders Name Type Priority Associated Diagnoses [...] ventilation documented in this encounter Care Teams Grounds Maintenance Manager Relationship Specialty Start Date End Date Dayana Ortiz MD 200 [place] [address] PCP - General 10/16/07 documented as of this encounter
--- OUTSIDE RECORDS SUMMARY | 2022-12-27 04:31 | External Medical Summary | Summary of Care ---
Author Name Unknown Organization [facility] Address [address] [place] [address] Phone [phone] Care Team Providers Care Circular Knife Cutter Machine Name Role Phone Dayana Ortiz MD Primary Care Provider + Reason for Visit * Reason Comments Outpatient Testing Encounter Details Date Type Department Care Team Description 10/10/2022 Laboratory Laboratory [address] [place] [phone] [place] [address] Hyperlipidemia with target LDL less than 100 Allergies Active Allergy Reactions Severity Noted Date Comments Cinnamon Other (Please comment) 04/24/2016 chest tightness Morphine Nausea/vomiting Medium 04/30/2012 Severe nausea and vomiting Penicillins Rash 11/23/1999 Other reaction(s): rash documented as of this encounter (statuses as of 10/10/2022) Medications Medication Sig Dispensed Refills Start Date End Date Status acetaminophen (TYLENOL) 500 MG TabletIndications: Pain of both shoulder joints,Spasm of muscle Take 2 Tabs by mouth every 8 hours as needed for Pain or Fever. 100 Tab 0 12/01/2016 Active [place]-3 Fatty Acids (FISH OIL) 1000 MG CapsuleIndications [...] as of this encounter (statuses as of 10/10/2022) Active Problems Problem Noted Date Moderate episode [...] as of this encounter (statuses as of 10/10/2022) Resolved Problems Problem Noted Date Resolved Date Dyslipidemia, goal to be determined 01/12/2009 03/26/2012 Overview: Per Lipid Taxonomy. Mixed dyslipidemia 08/29/2003 01/12/2009 Overview: Per Lipid Taxonomy. ANGINA PECTORIS NEC-NOS 07/01/2003 10/12/19 05 documented as of this encounter (statuses as of 10/10/2022) Immunizations Name Administration Dates Next Due Seasonal [...] Encounters Date Type Specialty Care Team Description 10/12/2022 Office Visit Internal Medicine Dayana Ortiz MD [address] [place] [address] 12/08/2022 Office Visit Gastroenterology Thuy Knott, DO [address] [place] [address] Pending Results Name Type Priority Associated Diagnoses Date /Time LIPID PANEL WITH DIRECT LDL IF TG IS HIGH Lab Routine Hyperlipidemia with target LDL less than 100 10/10/2022 8:41 AM EDT HEPATIC FUNCTION PANEL Lab Routine Hyperlipidemia with target LDL less than 100 10/10/2022 8:41 AM EDT Scheduled Procedures Name Priority Associated [...] as of this encounter Visit Diagnoses Diagnosis Hyperlipidemia with target LDL less than 100 Other and unspecified hyperlipidemia documented in this encounter Care Teams Circular Knife Cutter Machine Relationship Specialty Start Date End Date Dayana Ortiz MD 200 [facility] [place] [address] PCP - General 10/16/07 documented as of this encounter
--- OUTSIDE RECORDS SUMMARY | 2022-12-27 04:31 | External Medical Summary | Summary of Care ---
Author Name Unknown Organization [facility] Address [address] [place] [address] Phone [phone] Care Team Providers Care Loan Analyst Name Role Phone Dayana Ortiz MD Primary [...] CPAP (TREATMENT SETTINGS) Heath Mario DO [address] [place] [id number] Referral ID Status Reason Start Date Expiration Date V isits Requested Visits Authorized [id number] Pending Review 08/18/2022 999 999 Reason for Visit * Reason Onset Date Comments FYI 08/16/2022 Auth denied Encounter Details Date Type Department Care Team Description 08/16/2022 [facility]phone [facility] [address] [place] [phone] Heath Mario DO [address] [place] [address] FYI (Auth denied) Allergies Active Allergy Reactions [...] or Fever. 100 Tab 0 12/01/2016 Active [place]-3 Fatty Acids (FISH OIL) 1000 MG CapsuleIndications [...] we have to fax a letter to [employer] [phone] and leonela expedite appeal on coversheet.This takes 3 days. The letter needs to have newinformation in it explaining why we are appealing. * Telephone Encounter - Carmen Morton - 08/24/2022 8:39 AM EDT Peer to peer never called back. I contacted [facility] and told me since the peer to peer was done once that is upheld. We now have to request an appeal. Attempted to setup and was unable to reach anyone. * Telephone Encounter - Heath Mario DO - 08/22/2022 4:34 PM EDT Spoke with a apparel trimmings sales representative from [facility], who verified that the information they have on file is what we received in the letter. Provided phone number to call to [place]che[id number] [id number]: [phone]. Phone call to the above number goes to a voicemail to request a call for [id number]. Requested call for tomorrow (08/23/22) around 12:30 PM or 4 PM. FYI to nursing, as that call may come through the nurse's line. * Telephone Encounter - Heath Mario DO - 08/22/2022 9:55 AM EDT Received letter from [facility] regarding outcome of [id number], stating that [id number] and [id number] are both denied because "the provider stated she's OK with a home sleep study for cpap titration." This was not my understanding of our conversation. My understanding was that the split-night study was denied because updated diagnostic testing was not required, and that we should be able to do the BiPAP titration 12167 as a stand-alone study, rather than the split-night study. A home sleep apnea test cannot do a BiPAP titration, so if an updated diagnostic test is not required, then the study indicated is the 28103 BiPAP titration study, not a home sleep [...] call from Dr. Hylton with [facility] for hhde-ol-lmbo. Baseline portion denied due to known diagnosis [...] for updated BiPAP titration. Please set up [id number]-fuxq. * Telephone Encounter - Carmen Morton - 08/16/2022 3:54 PM EDT Sleep study was denied. Peer to peer or hst?? documented in this encounter Plan of Treatment Upcoming Encounters Date Type Specialty Care Team Description 08/29/2022 Office Visit Internal Medicine Dayana Ortiz MD [address] [place] [address] 09/26/2022 Office Visit Pain Medicine Baldomero Beckford, DO [address] [place] [phone] 12/08/2022 Office Visit Gastroenterology Thuy Knott, DO [address] [place] [address] 12/27/2022 Office Visit Dermatology Barbara Ward PA-C [address] [place] [address] [place] [address] Scheduled Orders Name Type Priority Associated Diagnoses [...] ventilation documented in this encounter Care Teams Loan Analyst Relationship Specialty Start Date End Date Dayana Ortiz MD [address] [facility] [place] [address] PCP - General 10/16/07 documented as of this encounter
--- OUTSIDE RECORDS SUMMARY | 2022-12-27 04:31 | External Medical Summary | Summary of Care ---
Author Name Unknown Organization [facility] Address [address] [place] [address] Phone [phone] Care Team Providers Care Industrial Technology Education Teacher Name Role Phone Dayana Ortiz MD Primary [...] CPAP (TREATMENT SETTINGS) Heath Mario DO [address] [place] [id number] Referral ID Status Reason Start Date Expiration Date V isits Requested Visits Authorized [id number] Pending Review 08/18/2022 999 999 Reason for Visit * Reason Onset Date Comments FYI 08/16/2022 Auth denied Encounter Details Date Type Department Care Team Description 08/16/2022 [facility] [address] [place] [phone] Heath Mario DO [address] [place] [address] FYI (Auth denied) Allergies Active Allergy Reactions [...] or Fever. 100 Tab 0 12/01/2016 Active [place]-3 Fatty Acids (FISH OIL) 1000 MG CapsuleIndications [...] Miscellaneous Notes * Telephone Encounter - Heath Briannamagda Mario, - 08/22/2022 9:55 AM EDT Received letter from [employer] regarding outcome of [id number]-[id number], stating that [id number] and [id number] are both denied because "the provider stated she's OK with a home sleep study for cpap titration." This was not my understanding of our conversation. My understanding was that the split-night study was denied because updated diagnostic testing was not required, and that we should be able to do the BiPAP titration 29632 as a stand-alone study, rather than the split-night study. A home sleep apnea test cannot do a BiPAP titration, so if an updated diagnostic test is not required, then the study indicated is the 57267 BiPAP titration study, not a home sleep [...] call from Dr. Hylton with [facility] for fowx-vz-gygi. Baseline portion denied due to known diagnosis [...] for updated BiPAP titration. Please set up [id number]-if-lmgp. * Telephone Encounter - Carmen Morton - 08/16/2022 3:54 PM EDT Sleep study was denied. Peer to peer or hst?? documented in this encounter Plan of Treatment Upcoming Encounters Date Type Specialty Care Team Description 08/29/2022 [facility] Visit [facility] [address] 09/26/2022 Office Visit Pain Medicine Baldomero Beckford, DO [address] [place] [phone] 12/08/2022 Office Visit Gastroenterology Thuy Knott, DO [address] [place] [address] 12/27/2022 Office Visit Dermatology Barbara Ward PA-C [address] [place] [address] [place] [address] Scheduled Orders Name Type Priority Associated Diagnoses [...] ventilation documented in this encounter Care Teams Industrial Technology Education Teacher Relationship Specialty Start Date End Date Dayana Ortiz MD [address] [facility] [place] [address] PCP - General 10/16/07 documented as of this encounter
--- OUTSIDE RECORDS SUMMARY | 2022-12-27 04:31 | External Medical Summary | Summary of Care ---
Author Name Unknown Organization [facility] Address [address] [place] [address] Phone [phone] Care Team Providers Care Mirror Installer Name Role Phone Dayana Ortiz MD Primary [...] CPAP (TREATMENT SETTINGS) Heath Mario DO [address] [place] [id number] Referral ID Status Reason Start Date Expiration Date V isits Requested Visits Authorized [id number] Pending Review 08/18/2022 999 999 Reason for Visit * Reason Onset Date Comments FYI 08/16/2022 Auth denied Encounter Details Date Type Department Care Team Description 08/16[facility]20[facility] [address] [place] [phone] Heath Mario DO [address] [place] [address] FYI (Auth denied) Allergies Active Allergy Reactions [...] or Fever. 100 Tab 0 12/01/2016 Active [place]-3 Fatty Acids (FISH OIL) 1000 MG CapsuleIndications [...] call from Dr. Hylton with [facility] for vtin-we-pacj. Baseline portion denied due to known diagnosis [...] for updated BiPAP titration. Please set up [id number]-[id number]. * Telephone Encounter - Carmen Morton - 08/16/2022 3:54 PM EDT Sleep study was denied. Peer to peer or hst?? documented in this encounter Plan of Treatment Upcoming Encounters Date Type Specialty Care Team Description 08/29/2022 Office Visit Internal Medicine Dayana Ortiz MD [address] [facility] [place] [address] 09/26/2022 Office Visit Pain Medicine Baldomero Beckford DO [address] [place] [phone] 12/08/2022 Office Visit Gastroenterology Thuy Knott, [address] [place] [address] 12/27/2022 Office Visit Dermatology Barbara Ward PA-C [address] [place] [address] [place] [address] Scheduled Orders Name Type Priority Associated Diagnoses [...] ventilation documented in this encounter Care Teams Mirror Installer Relationship Specialty Start Date End Date Dayana Ortiz MD [address] [facility] [place] [address] PCP - General 10/16/07 documented as of this encounter
--- OUTSIDE RECORDS SUMMARY | 2022-12-27 04:32 | External Medical Summary | Summary of Care ---
Author Name Unknown Organization [facility] Address [address] [place] [address] Phone [phone] Care Team Providers Care Architectural Drafter Name Role Phone Dayana Ortiz MD Primary [...] CPAP (TREATMENT SETTINGS) Heath Mario DO [address] [place] [id number] Referral ID Status Reason Start Date Expiration Date V isits Requested Visits Authorized [id number] Pending Review 08/18/2022 999 999 Reason for Visit * Reason Onset Date Comments FYI 08/16/2022 Auth denied Encounter Details Date Type Department Care Team Description 08/16/20[facility] [address] [place] [phone] Heath Mario DO [address] [place] [address] FYI (Auth denied) Allergies Active Allergy Reactions [...] or Fever. 100 Tab 0 12/01/2016 Active [place]-3 Fatty Acids (FISH OIL) 1000 MG CapsuleIndications [...] call from Dr. Hylton with [facility] for qitf-ms-waoj. Baseline portion denied due to known diagnosis [...] for updated BiPAP titration. Please set up [id number]-[id number]-[id number]. * Telephone Encounter - Carmen Morton - 08/16/2022 3:54 PM EDT Sleep study was denied. Peer to peer or hst?? documented in this encounter Plan of Treatment Upcoming Encounters Date Type Specialty Care Team Description 08/29/2022 Office Visit Internal Medicine Dayana Ortiz MD [address] [facility] [place] [address] 09/26/2022 Office Visit Pain Medicine Baldomero Beckford DO [address] [place] [phone] 12/08/2022 Office Visit Gastroenterology Thuy Knott, [address] [place] [address] 12/27/2022 Office Visit Dermatology Barbaar Ward PA-C [address] [place] [address] [place] [address] Scheduled Orders Name Type Priority Associated Diagnoses [...] ventilation documented in this encounter Care Teams Architectural Drafter Relationship Specialty Start Date End Date Dayana Ortiz MD 200 [facility] [place] [address] PCP - General 10/16/07 documented as of this encounter
--- OUTSIDE RECORDS SUMMARY | 2022-12-27 04:32 | External Medical Summary | Summary of Care ---
Author Name Unknown Organization [facility] Address [address] [place] [address] Phone [phone] Care Team Providers Care Forensic Document Examiner Name Role Phone Dayana Ortiz MD Primary Care Provider + Reason for Visit * Reason Onset Date Comments FYI 08/16/2022 Auth denied Encounter Details Date Type Department Care Team Description 08/16/2022 Telephone Sleep Disorders Ctr [facility] [address] [place] [phone] Evita Gunn [address] [place] [address] FYI (Auth denied) Allergies Active Allergy Reactions Severity Noted Date Comments Cinnamon Other (Please comment) 04/24/2016 chest tightness Morphine Nausea/vomiting Medium 04/30/2012 Severe nausea and vomiting Penicillins Rash 11/23/1999 Other reaction(s): rash documented as of this encounter (statuses as of 08/17/2022) Medications Medication Sig Dispensed Refills Start Date End Date Status acetaminophen (TYLENOL) 500 MG TabletIndications: Pain of both shoulder joints,Spasm of muscle Take 2 Tabs by mouth every 8 hours as needed for Pain or Fever. 100 Tab 0 12/01/2016 Active [place]-3 Fatty Acids (FISH OIL) 1000 MG CapsuleIndications [...] as of this encounter (statuses as of 08/17/2022) Active Problems Problem Noted Date Moderate episode [...] as of this encounter (statuses as of 08/17/2022) Resolved Problems Problem Noted Date Resolved Date Dyslipidemia, goal to be determined 01/12/2009 03/26/2012 Overview: Per Lipid Taxonomy. Mixed dyslipidemia 08/29/2003 01/12/2009 Overview: Per Lipid Taxonomy. ANGINA PECTORIS NEC-NOS 07/01/2003 10/12/19 05 documented as of this encounter (statuses as of 08/17/2022) Immunizations Name Administration Dates Next Due Seasonal [...] [facility]'s Dr. Hylton. 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 Please set up [id number]-dk-nare. * Telephone Encounter - Carmen Morton - 08/16/2022 3:54 PM EDT Sleep study was denied. Peer to peer or hst?? documented in this encounter Plan of Treatment Upcoming Encounters Date Type Specialty Care Team Description 08/29/2022 Office Visit Internal Medicine Dayana Ortiz MD [address] [place] [address] 09/26/2022 Office Visit Pain Medicine Baldomero Beckford, DO [address] [place] [phone] 12/08/2022 Office Visit Gastroenterology Nikos Thuy Garcia, DO [address] [place] [address] 12/27/2022 Office Visit Dermatology Barbara Ward, GEOVANNI [address] [place] [address] [place] [address] Scheduled Procedures Name Priority Associated Diagnoses Date/Ti [...] filedocumented as of this encounter Care Teams Forensic Document Examiner Relationship Specialty Start Date End Date Dayana Ortiz MD [address] [place] [address] PCP - General 10/16/07 documented as of this encounter
--- OUTSIDE RECORDS SUMMARY | 2022-12-27 04:32 | External Medical Summary | Summary of Care ---
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 [M47.812] Procedures C-/T-SPINE PARAVERTEBRAL FACET INJ, 1 LEVEL C-/T-SPINE PARAVERTEBRAL FACET INJ,2 LEVELS C-/T-SPINE PARAVERTEBRAL FACET INJ, 1 LEVEL C-/T-SPINE PARAVERTEBRAL FACET INJ, 2 LEVELS Referral ID Status Reason Start Date Expiration Date Visits Re quested Visits Authorized [id number] Encounter Details Date Type Department Care Team Description 07/27/2022 Hospital Encounter OR [facility], Operating Room [facility] [address] [place] [id number] Baldomero Beckford DO [address] [place] [phone] Allergies Active Allergy Reactions Severity Noted Date Comments Cinnamon Other (Please comment) 04/24/2016 chest tightness Morphine Nausea/vomiting Medium 04/30/2012 Severe nausea and vomiting Penicillins Rash 11/23/1999 Other reaction(s): rash documented as of this encounter (statuses as of 07/27/2022) Medications Medication Sig Dispensed Refills Start Date End Date Status acetaminophen (TYLENOL) 500 MG TabletIndications: Pain of both shoulder joints,Spasm of muscle Take 2 Tabs by mouth every 8 hours as needed for Pain or Fever. 100 Tab 0 12/01/2016 Active [place]-3 Fatty Acids (FISH OIL) 1000 MG CapsuleIndications [...] Additional Information Patient not taking.Reported on 07/27/2022 Fenofibrate 160 MG Oral Tablet (Lofibra)Indicatio ns:Hyperlipidemia with target LDL less than 100 TAKE ONE TABLET BY MOUTH EVERY DAY WITH meal 30 Tablet 5 04/27/2021 Active Omeprazole 20 MG Oral Capsule Delayed [...] the evening. 180 Capsule 3 05/30/2022 Active documented as of this encounter (statuses as of 07/27/2022) Active Problems Problem Noted Date Moderate episode of recurrent major depr essive disorder 04/12/2021 Allergic rhinitis 07/18/2018 CSA (central sleep apnea) 07/18/2018 Adhesive capsulitis of left shoulder 11/ 07/2016 Status post [place] fundoplication 2016 Hyperlipidemia [...] of inactive term Gastric ulcer Overview: ruptured 4210/7 Migraine variant documented as of this encounter (statuses as of 07/27/2022) Resolved Problems Problem Noted Date Resolved Date Dyslipidemia, goal to be determined 01/12/2009 03/26/2012 Overview: Per Lipid Taxonomy. Mixed dyslipidemia 08/29/2003 01/12/2009 Overview: Per Lipid Taxonomy. ANGINA PECTORIS NEC-NOS 07/01/2003 10/12/19 05 documented as of this encounter (statuses as of 07/27/2022) Immunizations Name Administration Dates Next Due Seasonal [...] Sign Reading Time Taken Comments Blood Pressure 144/49 07/27/2022 10:26 AM EDT Pulse 65 07/27/2022 10:26 AM EDT Temperature 36.1 C (97 F) 07/27/2022 9:25 AM EDT Respiratory Rate 16 07/27/2022 10:26 AM EDT Oxygen Saturation 98% 07/27/2022 10:26 AM EDT Inhaled Oxygen Concentration - - Weight - - Height - - Body Mass Index - - documented in this encounter Discharge Instructions * Discharge Instr - AVS* Baldomero Beckford, DO - 07/27/2022 10:24 AM EDT [facility] [address] [place] [address], [place] [address] Discharge Date: 07/27/2022 [facility] at [phone] during business hours. For after-hours emergencies call 911. Your attending physician at the time of your discharge was: Baldomero Beckford DO [address] [place] [phone] The information below provides you with the instructions and the list of medications you need to betaking following discharge from the hospital. If you have any questions, please ask before leaving.Please carry this letter with you when you see your doctor in the clinic. Diet: Resume your normal diet If you are diabetic, follow your blood sugars closely for next 2-3 days as they are likely to be elevated. If you are having difficulty controlling your blood sugars call your family doctor or the physician that treats your diabetes. Activity: Do not engage in strenuous activity today Resume your normal activities tomorrow Do not soak in water for 24 hours. No swimming, hot tub or bath but showering is allowed. Do not use heat on the injection site for 24 hours. If uncomfortable ice may be helpful. Some injections may make your arms or legs weak for a few hours. Be extremely careful when walking or changing positions that you do not fall. Have someone assist you for the next 6 hours. If weakness or numbness becomes progressive CALL IMMEDIATELY or GO TO THE NEAREST EMERGENCY ROOM Keep a diary of your pain until seen in the office to help us determine how effective the injectionwas Do not restart physical therapy or chiropractic manipulation until 48 hours after your injection Call : If weakness or numbness suddenly becomes worse or become progressive If the injection site becomes red, swollen, warm to the touch, begins to bleed or drain fluid, or is excessively painful. If you have any questions Medications: Resume all the medications you were taking prior to your injection. Resume your anticoagulants tomorrow unless otherwise instructed by your family physician, marketing consultant or the anticoagulation clinic. Additional Instructions: None Driving: You may resume driving in 12-24 hours if no weakness . Date you may return to work or school: N/A Follow Up: Follow-up with Dr. Beckford in 8 weeks via telehealth or in-person appointment per your preference. documented in this encounter Progress Notes * Baldomero Beckford DO - 07/27/2022 10:24 AM EDT [facility] [place] [address] [place] [facility] [address] OUTPATIENT SURGERY DISCHARGE SUMMARY NOTE Name: Pierre Mead Location: OR [facility]/OR Date: 07/27/2022 Time: 10:24 AM Surgery Date: 07/27/2022 Procedure: Procedure(s): C-/T-SPINE PARAVERTEBRAL FACET INJ, 1 LEVEL C-/T-SPINE PARAVERTEBRAL FACET INJ, 2 LEVELS C-/T-SPINE PARAVERTEBRAL FACET INJ, 3 OR MORE LEVELS (INTRAARTICULAR) No laterality found for procedure #1 No laterality found for procedure #2 No laterality found for procedure #3 Surgeon: Surgeon(s): Baldomero Beckford DO Discharge Diagnosis: Cervical spondylosis After examination of this patient, I have determined he is ready for discharge to home when the patient meets criteria. Discharge instructions were given to the patient. Baldomero Beckford DO OR [facility], Operating Room [facility] [address] [place] [place] [address] documented in this encounter H&P Notes * Baldomero Beckford DO - 07/27/2022 9:51 AM EDT Interventional Pain H&P Subjective: History of Present Illness: Pierre Mead is a 52 year old year-old male with a past medical history significant for cervicalspondylosis who is presenting for right-sided C2/3, 3/4, possible 4/5 facet joint injection with corticosteroid to improve his pain and function. his pain is essentially unchanged since our last office visit with is visit with Dr. Tyler. ASA 3 AW nml Review of Systems: A focused 12-pt ROS were of reviewed with the patient including difficulty with sleep, snoring, aspiration history, dysphagia, stomach pain, nausea and vomiting, severe headaches, confusion, open skin lesions or wounds, chest pain, shortness of breath, excessive thirst, somnolence, dysuria, incomplete bladder emptying, easy bruising, recent clotting problems or bleeding, depression or rushed thoughts unless noted previously. Review of patient's allergies indicates: Allergen Reactions Morphine Nausea/vomiting Severe nausea and vomiting Cinnamon Other (Please comment) chest tightness Penicillins Rash Other reaction(s): rash Medications, Past Medical History, Past Surgical History reviewed and documented in Epic. See detailed report if needed. Pertinent Labs/Test Results: No components found for: PLTS, INR No results found for: CREATININE Hemoglobin A1C (%) Date Value 05/30/2022 5.7 (H) 07/07/2019 5.7 (H) No results found for: AMPHETAMINE, BARBITURATES, BENZODIAZEPINES, BUPRENORPHINE, METHADONE, OPIATES, OXYCODONE, PHENCYCLIDINE, CANNABINOIDS, TOX SCREEN, TOX SCREEN-SERUM Imaging: I personally reviewed the imaging and my findings were . XR SHOULDER, 2 OR MORE VIEWS Narrative: EXAM XR SHOULDER, 2 OR MORE VIEWS-04/10/2022 8:43 am HISTORY left shoulder pain COMPARISON Radiograph 12/01/2016 TECHNIQUE Four radiographs left shoulder. FINDINGS Acromioclavicular joint normally aligned and mild osteoarthrosis. Glenohumeral joint normally aligned and without arthropathy. No calcification. No fracture. Impression: IMPRESSION No acute findings. Objective Physical Exam: Vital Signs: BP 144/88 | Pulse 64 | Temp 36.1 C (97 F) (Tympanic) | Resp 18 | SpO2 98% There isno height or weight on file to calculate BMI. General: No apparent distress. Eyes: pupils equal and round, sclera white, pupils midsize. ENT: mucous membranes moist Resp: Non-labored breathing CV: Extremities warm and well-perfused. Psych: Oriented; affect warm, insight good. Skin: No rashes or lesions appreciated on exposed skin Neuromuscular Exam: Facet loading positive, spurling negative, TTT over cervical spine Assessment: Pierre is a 52 year old year-old male with: Cervical spondylosis Plan: The patient is undergoing right-sided C2/3, C3/4, C4/5 today to alleviate his pain and improve his function. The risks, benefits and alternatives to the procedure were reviewed at length and the patient was provided the opportunity to ask questions which were answered to their voiced understanding. Following this comprehensive discussion, the patient opted to proceed. The patient was consentedto the procedure following this comprehensive conversation. Baldomero Beckford DO OR [facility], Operating Room [facility] [address] [place] [address] [place] [phone] documented in this encounter Nursing Notes * Alberta Muller RN - 07/27/2022 10:35 AM EDT Patient tolerated pain injection well. Ready for discharge to home. * Meka Santiago RN - 07/27/2022 10:12 AM EDT Patient tolerating procedure without complications. documented in this encounter OR Notes * OR Surgeon - Baldomero Beckford DO - 07/27/2022 10:21 AM EDT CERVICAL FACET JOINT INJECTION DATE: 07/27/2022 ATTENDING: Baldomero Beckford DO PREOPERATIVE DIAGNOSIS: Cervical spondylosis with Cervical facet arthropathy . POSTOPERATIVE DIAGNOSIS: Cervical spondylosis with Cervical facet arthropathy. PROCEDURE PERFORMED: 1. C2/3 facet joint injection on the right side with local anesthetic and corticosteroid. 2. Additional levels: C3/4, C4/5 facet joint injection on the right side. 3. Fluoroscopy for precise needle localization. ANESTHESIA: Local infiltration with lidocaine. MONITORS: Automatic blood pressure cuff, pulse oximetry and ECG INDICATIONS: Pierre Mead ([id number]) is a very pleasant 52 year old year-old male presenting witha remarkable history of cervical spondylosis producing axial neck pain. We will provide a cervical facet joint injection today to reduce his pain and improve his function. Current Home Meds: No current facility-administered medications for this encounter. Allergies Review of patient's allergies indicates: Allergen Reactions Morphine Nausea/vomiting Severe nausea and vomiting Cinnamon Other (Please comment) chest tightness Penicillins Rash Other reaction(s): rash REVIEW OF SYSTEMS: Negative for fever, chills, chest pain, SOB, bleeding abnormalities, nausea, vomiting, diarrhea, worsening edema, or new rashes. FOCUSED PHYSICAL EXAMINATION: The patient is awake, alert and oriented, and is in no acute distress. Vital signs are stable. The patient is afebrile. We explained the procedure to the patient including the risks, benefits and alternatives to the procedure. The patient verbalized understanding and was willing to proceed. PROCEDURE IN DETAIL: An informed consent was obtained. The patient was taken to the procedure room and was positively identified by the staff and the attending physician. The patient was positioned left lateral decubitus position on the procedure bed. Vital signs were monitored as above and remained stable throughout the procedure. The skin was prepped and draped in the standard sterile fashion. A surgical pause (time-out) was performed and was agreed upon by the members of the team. A fluoroscopic view of the Cervical spine was obtained, and the area of interest was identified. The skin and subcutaneous tissues were anesthetized using 1% lidocaine and 25-gauge 1-1/2-inch needle. Under fluoroscopic guidance, a 25-gauge, 3.5-inch spinal needle was advanced into the C2/3 facet joint on the right side. Additional needles were placed at C3/4 and C4/5 on the same side. The needle positions were verified in lateral view. In addition, position was confirmed by injecting radiopaquedye. That confirmed excellent placement of the needle in the joint, and did not show vascular uptake. After negative aspiration for the CSF or blood, 1 ml of the injectate was injected into each joint. Total injectate was composed of 60mg of triamcinolone and 1.5 mL of 1% lidocaine. All needles were removed. The patient tolerated the procedure well. COMPLICATIONS: None. DISPOSITON: 1. Return to clinic in 1-2 months for follow-up evaluation, sooner as needed. 2. Resume activity as tolerated. 3. Patient can drive after 12-24 hours if no weakness noted. Baldomero Beckford DO OR [facility], Operating Room [facility] [address] [facility] [place] [address] documented in this encounter Plan of Treatment Upcoming Encounters Date Type Specialty Care Team Description 08/29/2022 Office Visit Internal Medicine Dayana Ortiz MD [address] [facility] [id number] 09/26/2022 Office Visit Pain Medicine Baldomero Beckford, DO [address] [place] [phone] 12/08/2022 Office Visit Gastroenterology Nikos Thuy Garcia, DO [address] [place] [address] 12/27/2022 Office Visit Dermatology Barbara Ward PA-C [address] [place] [address] [place] [address] Scheduled Procedures Name Priority Associated Diagnoses Date/Ti me C-/T-SPINE PARAVERTEBRAL FACET INJ, 1 LEVEL Spondylosis of cervical region without myelopathy or radiculopathy 07/27/2022 9:57 AM EDT C-/T-SPINE PARAVERTEBRAL FACET INJ, 2 LEVELS Spondylosis of cervical region without myelopathy or radiculopathy 07/27/2022 9:57 AM EDT COLONOSCOPY FLEXIBLE PROXIMAL DIAGNOSTIC Recall History of [...] 09/23/2021, 06/23/2021 Influenza Vaccine (FLU shot) Completed 06/2022, 03/09/2020, 03/09/2020, Additional history exists GARDASIL-HPV IMMUNIZATION SERIES [...] Not on filedocumented as of this encounter Procedures Procedure Name Priority Date/Time Associated Diagnosis Comments FLUORO INTERVENTIONAL PAIN PROCEDURE NONBILLABLE Routine 07/27/2022 10:25 AM EDT documented in this encounter Results * FLUORO INTERVENTIONAL PAIN PROCEDURE NONBILLABLE (07/27/2022 10:25 AM EDT) Narrative Scheduling, Silent - 07/27/2022 10:26 AM EDT This procedure will not be read by a Radiologist. Please see operative note. Baldomero Beckford DO RAD FLUOROSCOPY documented in this encounter Administered Medications Inactive Administered Medications - up to 3 most recent administrations Medication Order MAR Action Action Date Dose Rate Site Iohexol (Omnipaque 180) inj 0.5 mL 0.5 mL, Injection, ONCE, On Dolly 07/27/22 at 1000, For 1 dose, Intra-Op Given 07/27/2022 10:09 AM EDT 0.5 mL lidocaine 1 % inj 15 mg 15 mg (1.5 mL), Subcutaneous, ONCE, On Dolly 07/27/22 at 1000, For 1 dose, Intra-Op Given 07/27/2022 10:06 AM EDT 15 mg Other-Specify Triamcinolone Acetonide (Kenalog) 40 MG/ML inj 40 mg 40 mg, Injection, ONCE, On Dolly 07/27/22 at 1000, For 1 dose, Intra-Op Given 07/27/2022 10:10 AM EDT 80 mg documented in this encounter Active and Recently Administered Medications Times are shown in EDT. Scheduled Medication Order 07/25/2022 07/26/2022 07/27/2022 Iohexol (Omnipaque 180) inj 0.5 mL (COMPLETED) 0.5 mL, Injection, ONCE, On Dolly 07/27/22 at 1000, For 1 dose, Intra-Op 1009 (Given - Provid er: Meka Santiago RN - Comment: 3 sitesdivided dose) lidocaine 1 % inj 15 mg (COMPLETED) 15 mg (1.5 mL), Subcutaneous, ONCE, On Dolly 07/27/22 at 1000, For 1 dose, Intra-Op 1006 (Given - Provid er: Meka Santiago RN - Comment: 3 sitesdivided dose) Triamcinolone Acetonide (Kenalog) 40 MG/ML inj 40 mg (COMPLETED) 40 mg, Injection, ONCE, On Dolly 07/27/22 at 1000, For 1 dose, Intra-Op 1010 (Given - Provid er: Meka Santiago RN - Comment: 3 sitesdivided dose) documented in this encounter Care Teams Correspondence Review Clerk Relationship Specialty Start Date End Date Dayana Ortiz MD [address] [facility] [place] [place] [address] PCP - General 10/16/07 documented as of this encounter"
--- OUTSIDE RECORDS SUMMARY | 2022-12-27 04:32 | External Medical Summary | Summary of Care ---
Author Name Unknown Organization [facility] Address [address] [place] [address] Phone [phone] Care Team Providers Care Water Meter Installer Name Role Phone Dayana Ortiz MD Primary Care Provider + Reason for Visit * Reason Comments eRx-Medication Refill Encounter Details Date Type Department Care Team Description 07/27/2022 Refill General Internal Medicine [facility] [address] [place] [address] Dayana Ortiz MD [address] [place] [address] Hyperlipidemia with target LDL less than 100 Allergies Active Allergy Reactions Severity Noted Date Comments Cinnamon Other (Please comment) 04/24/2016 chest tightness Morphine Nausea/vomiting Medium 04/30/2012 Severe nausea and vomiting Penicillins Rash 11/23/1999 Other reaction(s): rash documented as of this encounter (statuses as of 07/30/2022) Medications Medication Sig Dispensed Refills Start Date End Date Status acetaminophen (TYLENOL) 500 MG TabletIndicatio ns:Pain of both shoulder joints,Spasm of muscle Take 2 Tabs by mouth every 8 hours as needed for Pain or Fever. 100 Tab 0 12/01/2016 Active [place]-3 Fatty Acids (FISH OIL) 1000 MG CapsuleIndicati ons:takes in the evening Take 1 Capsule by mouth in the morning. 0 Active Coenzyme Q10 (CO Q-10) 100 MG CAPSIndications :takes in the evening Take by mouth. Indications: [...] 05/30/2022 Active Fenofibrate 160 MG Oral Tablet (Lofibra)Indica tions:Hyperlipi demia with target LDL less than 100 TAKE ONE TABLET BY MOUTH EVERY DAY WITH MEAL 30 Tablet 5 07/30/2022 Active Fenofibrate 160 MG Oral Tablet (Lofibra)Indica tions:Hyperlipi demia with target LDL less than 100 TAKE ONE TABLET BY MOUTH EVERY DAY WITH meal 30 Tablet 5 04/27/2021 3 Discontinued documented as of this encounter (statuses as of 07/30/2022) Active Problems Problem Noted Date Moderate episode [...] as of this encounter (statuses as of 07/30/2022) Resolved Problems Problem Noted Date Resolved Date Dyslipidemia, goal to be determined 01/12/2009 03/26/2012 Overview: Per Lipid Taxonomy. Mixed dyslipidemia 08/29/2003 01/12/2009 Overview: Per Lipid Taxonomy. ANGINA PECTORIS NEC-NOS 07/01/2003 10/12/19 05 documented as of this encounter (statuses as of 07/30/2022) Immunizations Name Administration Dates Next Due Seasonal [...] encounter Miscellaneous Notes * Telephone Encounter - Dayana Ortiz MD - 07/30/2022 7:57 AM EDTSigned Prescriptions: Disp Refills Fenofibrate 160 MG Oral Tablet (Lofibra) 30 Tab*5 Sig: TAKE ONE TABLET BY MOUTH EVERY DAY WITH MEAL Authorizing Provider: DAYANA ORTIZ * Telephone Encounter - Gil Gregorio [facility] - 07/28/2022 8:36 PM EDT Pending Prescriptions: Disp Refills Fenofibrate 160 MG Oral Tablet [Pharmacy M*30 Tab*5 Sig: TAKE ONE TABLET BY MOUTH EVERY DAY WITH meal * Telephone Encounter - Gil Gregorio RPh - 07/28/2022 8:36 PM EDT Unable to authorize medication refills for pended medication(s) at this time. Part of the protocol criteria used for refill authorization was not satisfied. Patient needs AST,ALT within protocol parameters. AST Results: Lab Results Component Value Date/Time AST - [facility] 57 (H) 05/30/2022 09:13 AM AST - [facility] 52 (H) 04/25/2021 12:03 PM AST - [facility] 45 12/01/2020 09:53 AM AST - [facility] 54 (H) 09/04/2019 09:08 AM AST - [facility] 49 07/07/2019 01:13 PM AST - [facility] 36 12/12/2018 09:21 AM ALT Results: Lab Results Component Value Date/Time ALT - [facility] 90 (H) 05/30/2022 09:13 AM ALT - [facility] 61 (H) 04/25/2021 12:03 PM ALT - [facility] 92 (H) 12/01/2020 09:53 AM ALT - [facility] 79 (H) 09/04/2019 09:08 AM ALT - [facility] 69 (H) 07/07/2019 01:13 PM ALT - [facility] 65 (H) 12/12/2018 09:21 AM ALT-OUTSIDE LAB 91 (A) 02/02/2016 12:00 AM Please approve if appropriate. Thanks, Gil Gregorio, PharmD Clinical Pharmacist [facility](formerly telepharmacy) [phone] 07/28/2022, 8:36 PM documented in this encounter Plan of Treatment Upcoming Encounters Date Type Specialty Care Team Description 08/29/2022 Office Visit Internal Medicine Dayana Ortiz MD [address] [place] [address], [place] [address] 09/26/2022 Office Visit Pain Medicine Baldomero Beckford, DO [address] [place] [phone] 12/08/2022 Office Visit Gastroenterology SunnyThuy ellsworth, DO [address] [place] [address] 12/27/2022 Office Visit Dermatology Barbara Ward PA-C [address] [place] [address] [place] [address] Scheduled Procedures Name Priority Associated Diagnoses Date/Ti [...] hyperlipidemia documented in this encounter Care Teams Water Meter Installer Relationship Specialty Start Date End Date Dayana Ortiz MD [address] [place] [address], [place] [address] PCP - General 10/16/07 documented as of this encounter
--- OUTSIDE RECORDS SUMMARY | 2022-12-27 04:32 | External Medical Summary | Summary of Care ---
Author Name Unknown Organization [facility] Address [address] [place] [address] Phone [phone] Care Team Providers Care Profiling Machine Operator Name Role Phone Dayana Ortiz MD Primary Care Provider + Reason for Visit * Reason Onset Date Comments FYI 08/16/2022 Auth denied Encounter Details Date Type Department Care Team Description 08/16/2022 Telephone Sleep Disorders Ctr [facility] [address] [place] [phone] Evita Gunn [address] [place] [address] FYI (Auth denied) Allergies Active Allergy Reactions [...] Fever. 100 Tab 0 12/01/2016 Active [place]-3 Fatty Acids (FISH OIL) 1000 MG CapsuleIndications [...] for updated BiPAP titration. Please set up [id number]. * Telephone Encounter - Carmen Morton - 08/16/2022 3:54 PM EDT Sleep study was denied. Peer to peer or hst?? documented in this encounter Plan of Treatment Upcoming Encounters Date Type Specialty Care Team Description 08/29/2022 Office Visit Internal Medicine Dayana Ortiz MD [address] [place] [address] 09/26/2022 Office Visit Pain Medicine Baldomero Beckford, DO [address] [place] [phone] 12/08/2022 Office Visit Gastroenterology Nikos Thuy Garcia, DO [address] [place] [address] 12/27/2022 Office Visit Dermatology Barbara Ward, GEOVANNI [address] [place] [address] [place] [address] Scheduled Procedures Name Priority Associated Diagnoses Date/Ti [...] filedocumented as of this encounter Care Teams Profiling Machine Operator Relationship Specialty Start Date End Date Dayana Ortiz MD [address] [place] [address] PCP - General 10/16/07 documented as of this encounter
--- OUTSIDE RECORDS SUMMARY | 2022-12-27 04:32 | External Medical Summary | Summary of Care ---
Author Name Unknown Organization [facility] Address [address] [place] [address] Phone [phone] Care Team Providers Care Drug Discovery Informatics Specialist Name Role Phone Dayana Ortiz MD Primary [...] CPAP (TREATMENT SETTINGS) Heath Mario DO [address] [place] [id number] Referral ID Status Reason Start Date Expiration Date V isits Requested Visits Authorized [id number] Pending Review 08/18/2022 999 999 Reason for Visit * Reason Onset Date Comments FYI 08/16/2022 Auth denied Encounter Details Date Type Department Care Team Description 08/16/2022 Telephone [facility] [address] [place] [phone] Heath Mario DO [address] [place] [phone] FYI (Auth denied) Allergies Active Allergy Reactions Severity Noted Date Comments Cinnamon Other (Please comment) 04/24/2016 chest tightness Morphine Nausea/vomiting Medium 04/30/2012 Severe nausea and vomiting Penicillins Rash 11/23/1999 Other reaction(s): rash documented as of this encounter (statuses as of 08/18/2022) Medications Medication Sig Dispensed Refills Start Date End Date Status acetaminophen (TYLENOL) 500 MG TabletIndications: Pain of both shoulder joints,Spasm of muscle Take 2 Tabs by mouth every 8 hours as needed for Pain or Fever. 100 Tab 0 12/01/2016 Active [place]-3 Fatty Acids (FISH OIL) 1000 MG CapsuleIndications [...] as of this encounter (statuses as of 08/18/2022) Active Problems Problem Noted Date Moderate episode [...] as of this encounter (statuses as of 08/18/2022) Resolved Problems Problem Noted Date Resolved Date Dyslipidemia, goal to be determined 01/12/2009 03/26/2012 Overview: Per Lipid Taxonomy. Mixed dyslipidemia 08/29/2003 01/12/2009 Overview: Per Lipid Taxonomy. ANGINA PECTORIS NEC-NOS 07/01/2003 10/12/19 05 documented as of this encounter (statuses as of 08/18/2022) Immunizations Name Administration Dates Next Due Seasonal [...] as of this encounter Miscellaneous Notes * Addendum Note - Heath Mairo DO - 08/18/2022 2:02 PM EDTAddended by: HEATH MARIO on: 08/18/2022 02:02 PM Modules accepted: Orders * Telephone Encounter - Heath Mario DO - 08/18/2022 1:49 PM EDT Received phone call from Dr. Hylton with [employer] for [id number]. Baseline portion denied due to known diagnosis [...] for updated BiPAP titration. Please set up [id number]. * Telephone Encounter - Carmen Morton - 08/16/2022 3:54 PM EDT Sleep study was denied. Peer to peer or hst?? documented in this encounter Plan of Treatment Upcoming Encounters Date Type Specialty Care Team Description 08/29/2022 Office Visit Internal Medicine Dayana Ortiz MD [address] [facility] [address] 09/26/2022 Office Visit Pain Medicine [facility], [address] [place] [phone] 12/08/2022 Office Visit Gastroenterology Thuy Knott DO [address] [place] [address] 12/27/2022 Office Visit Dermatology Barbara Ward PA-C [address] [place] [address] [place] [address] Scheduled Orders Name Type Priority Associated Diagnoses [...] ventilation documented in this encounter Care Teams Drug Discovery Informatics Specialist Relationship Specialty Start Date End Date Dayana Ortiz MD [address] [place] [address] PCP - General 10/16/07 documented as of this encounter
--- OUTSIDE RECORDS SUMMARY | 2022-12-27 04:32 | External Medical Summary | Summary of Care ---
Author Name Unknown Organization [facility] Address [address] [place] [address] Phone [phone] Care Team Providers Care Plush Brusher Name Role Phone Dayana Ortiz MD Primary [...] CPAP (TREATMENT SETTINGS) Heath Mario DO [address] [employer] [place] [address] Referral ID Status Reason Start Date Expiration Date V isits Requested Visits Authorized [id number] Pending Review 08/18/[phone] Reason for Visit * Reason Onset Date Comments FYI 08/16/2022 Auth denied Encounter Details Date Type Department Care Team Description 08/16/2022 [facility] [address] [place] [phone] Heath Mario DO [address] [place] [address] FYI (Auth denied) Allergies Active Allergy Reactions [...] or Fever. 100 Tab 0 12/01/2016 Active [place]-3 Fatty Acids (FISH OIL) 1000 MG CapsuleIndications [...] call from Dr. Hylton with [facility] for [id number]. Baseline portion denied due to known diagnosis [...] for updated BiPAP titration. Please set up [id number]. * Telephone Encounter - Carmen Morton - 08/16/2022 3:54 PM EDT Sleep study was denied. Peer to peer or hst?? documented in this encounter Plan of Treatment Upcoming Encounters Date Type Specialty Care Team Description 08/29/2022 Office Visit Internal Medicine Dayana Ortiz MD [address] [facility] [place] [address] 09/26/2022 Office Visit Pain Medicine Baldomero Beckford DO [address] [place] [phone] 12/08/2022 Office Visit Gastroenterology Thuy Knott, [address] [place] [address] 12/27/2022 Office Visit Dermatology Barbara Ward PA-C [address] [place] [address] [place] [phone] Scheduled Orders Name Type Priority Associated Diagnoses [...] ventilation documented in this encounter Care Teams Plush Brusher Relationship Specialty Start Date End Date Dayana Ortiz MD [address] [facility] [place] [address] PCP - General 10/16/07 documented as of this encounter
[2022-12-27 04:33] LABS: Adenovirus PCR Not Detected (NotDetected); Bordetella parapertussis PCR Not Detected (NotDetected); Bordetella pertussis PCR Not Detected (NotDetected); Chlamydia pneumoniae PCR Not Detected (NotDetected); Coronavirus 229E PCR Not Detected (NotDetected); Coronavirus CoV-2 (COVID19)PCR Not Detected (NotDetected); Coronavirus HKU1 PCR Not Detected (NotDetected); Coronavirus NL63 PCR Not Detected (NotDetected); Coronavirus OC43PCR Not Detected (NotDetected); Human Metapneumovirus PCR Not Detected (NotDetected); Influenza A PCR Not Detected (NotDetected); Influenza B PCR Not Detected (NotDetected); Mycoplasma pneumoniae PCR Not Detected (NotDetected); Parainfluenza Virus 1 PCR Not Detected (NotDetected); Parainfluenza Virus 2 PCR Not Detected (NotDetected); Parainfluenza Virus 3 PCR Not Detected (NotDetected); Parainfluenza Virus 4 PCR Not Detected (NotDetected); Respiratory Syncytial VirusPCR Not Detected (NotDetected); Rhinovirus/Enterovirus PCR Not Detected (NotDetected)
--- OUTSIDE RECORDS SUMMARY | 2022-12-27 04:33 | External Medical Summary | Summary of Care ---
Author Name Unknown Organization [facility] Address [address] [place] [address] Phone [phone] Care Team Providers Care Building Manager Name Role Phone Dayana Ortiz MD Primary Care Provider + Reason for Visit * Reason Comments eRx-Medication Refill Encounter Details Date Type Department Care Team Description 07/12/2022 Refill General Internal Medicine [facility] [address] [place] [address] Dayana Ortiz MD [address] [place] [address] Hyperlipidemia with target LDL less than 100 Allergies Active Allergy Reactions Severity Noted Date Comments Cinnamon Other (Please comment) 04/24/2016 chest tightness Morphine Nausea/vomiting Medium 04/30/2012 Severe nausea and vomiting Penicillins Rash 11/23/1999 Other reaction(s): rash documented as of this encounter (statuses as of 07/13/2022) Medications Medication Sig Dispensed Refills Start Date End Date Status acetaminophen (TYLENOL) 500 MG TabletIndications:Pa in of both shoulder joints,Spasm of muscle Take 2 Tabs by mouth every 8 hours as needed for Pain or Fever. 100 Tab 0 12/01/2016 Active [place]-3 Fatty Acids (FISH OIL) 1000 MG CapsuleIndications:t akes in the evening Take 1 Capsule by mouth in the morning. 0 Active Coenzyme Q10 (CO Q-10) 100 MG CAPSIndications:take s in the evening Take by mouth. Indications: takes in the evening 0 Active CPAP every night at bedtime. 0 Active hydrOXYzine HCl 25 MG Oral TabletIndications:GA D (generalized anxiety disorder) TAKE ONE TABLET BY MOUTH THREE TIMES DAILY NEEDED FOR ANXIETY 60 Tablet 2 03/10/2021 Active Fenofibrate 160 MG Oral Tablet (Lofibra)Indications :Hyperlipidemia with target LDL less than 100 TAKE ONE TABLET BY MOUTH EVERY DAY WITH meal 30 Tablet 5 04/27/2021 Active Omeprazole 20 MG Oral Capsule Delayed Release (PriLOSEC) TAKE ONE CAPSULE BY MOUTH TWICE DAILY 60 Capsule 5 11/28/2021 Active Melatonin 10 MG Oral Tablet Take 1 Tablet by mouth at bedtime. 0 Active Atorvastatin Calcium 80 MG Oral Tablet (Lipitor)Indications :Hyperlipidemia with target LDL less than 100 TAKE ONE TABLET BY MOUTH EVERY DAY 90 Tablet 3 01/11/2022 Active Ventolin HFA 108 (90 Base) MCG/ACT Inhalation Aerosol SolutionIndications: Influenza A Inhale 2 Puffs by mouth every 4 hours as needed for Wheezing. 7 g 1 01/13/2022 Active Dexlansoprazole 30 MG Oral Capsule Delayed Release (Dexilant) Take 1 Capsule by mouth in the morning and 1 Capsule in the evening. 180 Capsule 3 05/30/2022 Active documented as of this encounter (statuses as of 07/13/2022) Active Problems Problem Noted Date Moderate episode [...] as of this encounter (statuses as of 07/13/2022) Resolved Problems Problem Noted Date Resolved Date Dyslipidemia, goal to be determined 01/12/2009 03/26/2012 Overview: Per Lipid Taxonomy. Mixed dyslipidemia 08/29/2003 01/12/2009 Overview: Per Lipid Taxonomy. ANGINA PECTORIS NEC-NOS 07/01/2003 10/12/19 05 documented as of this encounter (statuses as of 07/13/2022) Immunizations Name Administration Dates Next Due Seasonal [...] encounter Miscellaneous Notes * Telephone Encounter - Teddy Gregorio [facility] - 07/13/2022 1:22 PM EDT Refused Prescriptions: Disp Refills Fenofibrate 160 MG Oral Tablet (Lofibra) 30 Tab*5 Sig: TAKE ONETABLET BY MOUTH EVERY DAY WITH MEALRefused By: TEDDY GREGORIO for Refusal: Too soon------ documented in this encounter Plan of Treatment Upcoming Encounters Date Type Specialty Care Team Description 07/27/2022 Hospital Encounter Surgery [facility], [address] [place] [phone] 07/27/2022 Surgery Surgery [facility], [address] [place] [phone] C-/T-SPINE PARAVERTEBRAL FACET INJ, 1 LEVEL 08/29/2022 Office Visit Internal Medicine Dayana Ortiz MD [address] [place] [address] 12/08/2022 Office Visit Gastroenterology Thuy Knott, DO [address] [place] [address] 12/27/2022 Office Visit Dermatology Barbara Ward PA-C [address] [place] [address] [place] [address] Scheduled Procedures Name Priority Associated Diagnoses Date/Ti me C-/T-SPINE PARAVERTEBRAL FACET INJ, 1 LEVEL Spondylosis of cervical region without myelopathy or radiculopathy 07/27/2022 9:15 AM EDT C-/T-SPINE PARAVERTEBRAL FACET INJ, 2 LEVELS Spondylosis of cervical region without myelopathy or radiculopathy 07/27/2022 9:15 AM EDT COLONOSCOPY FLEXIBLE PROXIMAL DIAGNOSTIC Recall [...] less than 100 Other and unspecified hyperlipidemia Spondylosis of cervical region without myelopathy or radiculopathy Cervical spondylosis without myelopathy documented in this encounter Care Teams Building Manager Relationship Specialty Start Date End Date Dayana Ortiz MD [address] [place] [address] [place] [address] PCP - General 10/16/07 documented as of this encounter
[2022-12-27 04:34] LABS: Troponin I High Sensitivity < 2.3 pg/ml (0-20)
[2022-12-27 04:43] LABS: Thyroid Stimulating Hormone 5.698 uIu/ml (0.300-4.500)
[2022-12-27] MEDS ORDERED: ACETAMINOPHEN 1,000 MG/100 ML VIAL IV STA (04:55)
[2022-12-27] MEDS ORDERED: FAMOTIDINE 20MG IV PUSH 20 MG/5 ML SYR IV STA (04:56)
[2022-12-27] MEDS ORDERED: OPTIRAY 320 500ml IV ONE (05:20)
[2022-12-27 05:33] LABS: T4 Free Thyroxine 1.28 ng/dl (0.61-1.60)
--- NOTE | 2022-12-27 06:47 | CT Scan Report ---
Exam(s): CT ABDOMEN + PELVIS With Contrast IV Amt: 85 ML OPTIRAY 320 EXAM: CT Abdomen and Pelvis With Intravenous Contrast CLINICAL HISTORY: Reason for exam: Abdominal pain. TECHNIQUE: Axial computed tomography images of the abdomen and pelvis with intravenous contrast. CTDI is 28.08 mGy and DLP is 1454.07 mGy-cm. Automated exposure control was utilized for the study. A dose lowering technique was utilized adhering to the principles of ALARA. CONTRAST: Patient received 85 ML OPTIRAY 320 of IV contrast COMPARISON: No relevant prior studies available. FINDINGS: Lung bases: Unremarkable. No mass. No consolidation. ABDOMEN: Liver: Unremarkable. No mass. Gallbladder and bile ducts: Unremarkable. No calcified stones. No ductal dilation. Pancreas: Unremarkable. No mass. No ductal dilation. Spleen: Unremarkable. No splenomegaly. Adrenals: Unremarkable. No mass. Kidneys and ureters: Unremarkable. No solid mass. No hydronephrosis. Stomach and bowel: Unremarkable. No obstruction. No mucosal thickening. PELVIS: Appendix: No findings to suggest acute appendicitis. Bladder: Unremarkable. No mass. Reproductive: Unremarkable as visualized. ABDOMEN and PELVIS: Intraperitoneal space: Unremarkable. No free air. No significant fluid collection. Bones/joints: No acute fracture. No dislocation. Soft tissues: A few tiny fat-containing epigastric and. Umbilical ventral wall hernias up to 1.9 cm in maximal transverse dimension. Vasculature: Unremarkable. No abdominal aortic aneurysm. Lymph nodes: Unremarkable. No enlarged lymph nodes. IMPRESSION: Abdominal wall abnormalities as described. Electronically signed by: Pavel Brown MD 12/27/22 06:47 AM
[2022-12-27] MEDS ORDERED: MoRPHine SULFATE 4 MG/ML 1 ML CARP\\VIAL IV STA (06:55)
[2022-12-27] MEDS ORDERED: ONDANSETRON INJ 2 MG/ML 2 ML VIAL IV STA ×2 (06:55→07:47)
--- NOTE | 2022-12-27 07:04 | XRay Report ---
XR chest 1V portable CLINICAL HISTORY: Chest pain, nonspecific TECHNIQUE: Single frontal radiograph of the chest was obtained. Comparison: Comparison is made to chest radiograph 07/13/2020 FINDINGS: No lines and tubes are seen. The cardiomediastinal silhouette is normal. The lungs are clear. No evid ence of pleural effusion or pneumothorax. IMPRESSION: No acute chest disease. ACT 112: Negative or not required by law. Electronically signed by: Hamilton Matias M.D. 12/27/2022 7:03 AM
[2022-12-27] MEDS ORDERED: fentaNYL citrate PF 100 MCG/2 ML VIAL IV STA (07:47)
[2022-12-27] MEDS ORDERED: POTASSIUM CHLORIDE CRTAB 20 MEQ TABCR PO STA (07:47)
[2022-12-27] MEDS ORDERED: ACETAMINOPHEN 325 MG TAB PO PRN (07:57)
[2022-12-27] MEDS ORDERED: POLYETHYLENE (MIRALAX) 17 GM PACK PO PRN (07:57)
--- NOTE | 2022-12-27 08:02 | History & Physical Report ---
Date of Service December 27, 2022 Assessment & Plan (1) Substernal chest pain: Plan: This is a 52yo M with a PMH of GERD, h/o Kenrick fundoplicationin 2006, perforated gastric ulcer with surgical repair in 2009, HLD, LATRICIA on bipap, depression, alcohol use disorder and other medical problems listed below who presents with chest pain and fatigue since yesterday. CP resolved after fentanyl in ED, no change with ntg. Given aspirin in ED H/o negative cardiac work up in 2018 EKG today with sinus bradycardia, incomplete RBBB, T wave abnormality that were known previously but as compared to 2019, T wave abn worse in inferior leads Initial HS trop negative x 2, cont trend Repeat 2D echo, routine cards consult, repeat echo in AM (2) HLD (hyperlipidemia): Plan: Lipid panel in Oct 2022 showing elevated TG 322, total chol 214, HDL 38, LDL 111 Instructed to increase atorvastatin to 80mg but has continued his 40mg dose to complete meds he already had at home (3) History of gastric ulcer: (4) GERD (gastroesophageal reflux disease): Plan: H/o Kenrick fundoplicationin 2006, h/o perforated gastric ulcer with surgical repair in 2009 Takes Dexilant and omeprazole with good control of his reflux symptoms Recently followed up with Dr. Knott at the beginning of the month and no changes to medication - planning for repeat EGD in 2023 Cont IV PPI BID while admitted (5) Alcohol use disorder: Plan: Endorses 4-6 beers most nights but sometimes drinks 12 in a night AWSS, gabapentin protocol and PRN ativan (6) Depression: Plan: In setting of of son 2 years ago, not on medication (7) LATRICIA (obstructive sleep apnea): Plan: Bipap HS 11/ cwp per chart, to bring in DVT Ppx: SCDs for now given ulcer hx Code status: FULL PCP: Angel Dispo: Admitting to pcu Patient seen in collaboration with Dr. Hutchins. Please see addendum. History of Present Illness Chief Complaint: Chest pain Primary Care Provider: Dayana Ortiz MD This is a 52yo M with a PMH of GERD, h/o Kenrick fundoplicationin 2006, perforated gastric ulcer with surgical repair in 2009, HLD, LATRICIA on bipap, depression, alcohol use disorder and other medical problems listed below who presents with chest pain and fatigue since yesterday. 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 This resolved and he was able to work in his shop until 10pm. Around 11pm, developed left sided chest pain that felt like someone "stomping on my chest". Got up and took a shower and pain resolved enough for him to fall asleep. Pain then recurred and was severe enough to keep him up the rest of the night and came to ED around 2:30 AM for further evaluation. Pain is on left side of chest with some associated aching of left shoulder (although h/o MSK pain L shoulder, goes to chiropractor for adjustments). No h/o cardiac issues but has undergone a full cardiac workup including heart cath in 2019 that was negative. Does have a history of a perforated gastric ulcer and reflux but states that pain is primarily sharp and constant and this is more of a severe pressure. Takes Dexilant and omeprazole with good control of his reflux symptoms. Recently followed up with Dr. Knott at the beginning of the month and no changes to medication - planning for repeat EGD in 2023. Had lipid panel in Oct 2022 showing elevated TG 322, total chol 214, HDL 38, LDL 111 with instruction to increase atorvastatin to 80mg but has continued his 40mg dose to complete meds he already had at home. Has an unfilled script for new dose. Patient's son unexpectedly 2 years ago and he is still having difficulty sleeping. Drinks Coors Light most evenings and has up to 12 beers on a weekend day. No F/C, headache, lightheadedness, CP, SOB, N/V/D or dysuria. Not on any blood thinners. Grandfather from an [place] in his 50s. Dad has history of a pacemaker for slow heart rate, per patient. Non-smoker. Allergies Allergy/AdvReac Type Severity Reaction Status Date / Time cinnamon Allergy Severe CHEST Verified 01/24/22 23:47 DISCOMFORT Penicillins Allergy Intermediate RASH Verified 01/24/22 23:47 morphine AdvReac Intermediate NAUSEA Verified 01/24/22 23:47 Home Medications Medication Instructions Recorded Confirmed Type famotidine 40 mg tablet 40 mg PO QAM PRN Heartburn 02/28/20 12/27/22 History fenofibrate 160 mg tablet 160 mg PO PM 02/28/20 12/27/22 History dexlansoprazole 60 mg 60 mg PO BID 07/13/20 12/27/22 History capsule,biphase delayed release (Dexilant) omega-3 fatty acids 1,000 mg 1,000 mg PO QPM 01/24/22 12/27/22 History capsule atorvastatin 80 mg tablet 80 mg PO QPM 12/27/22 12/27/22 History omeprazole 20 mg capsule,delayed 20 mg PO QAM 12/27/22 12/27/22 History release Past Med/Surg History Medical History (Updated 12/27/22 @ 09:49 by Vickie Blackwell PA-C) Scoliosis Gastric ulcer "ruptured 05/26/06", surgical repair in [place] Perforated ulcer of intestine HLD (hyperlipidemia) Surgical History (Updated 12/27/22 @ 09:27 by Vickie Blackwell PA-C) History of tonsillectomy and adenoidectomy History of Kenrick fundoplication 2006, Dr. Perez H/O nasal septoplasty "2* fx" History of nasal surgery Status post laparoscopic Kenrick fundoplication Family History Other Heart disease Social History Smoking Status: Never smoker Hx Alcohol Use: Yes (0-12 beers nightly) Alcohol type: beer Hx Substance Use: No Preferred Language: Turkish Communication Ability: Effective Fruit Harvester Required: No Beliefs That Will Affect Care: Druze Druze Beliefs: Adventist Current Living Situation: Spouse and Family Feels Safe at Home: Yes Assistive Devices: None Review of Systems Review of Systems: At least ten systems reviewed and negative except as noted in the HPI. Physical Exam Physical Exam: Please see Dr. Hutchins's addendum for physical exam. Results & Data Results & Data Vital Signs (Past 12 Hours) Vital Signs Temp Pulse Pulse Resp BP BP Pulse Ox 12/27/22 07:00 49 L 18 154/86 H 98 12/27/22 06:30 125/77 12/27/22 06:30 57 L 14 94 12/27/22 06:01 142/102 H 12/27/22 06:01 65 18 95 12/27/22 06:00 71 18 98 12/27/22 05:30 60 14 96 12/27/22 05:30 151/83 H 12/27/22 05:01 61 14 95 12/27/22 05:01 129/80 12/27/22 05:00 65 14 95 12/27/22 04:30 149/86 H 12/27/22 04:30 66 17 94 12/27/22 04:00 139/74 12/27/22 04:00 68 14 93 12/27/22 03:58 65 17 96 12/27/22 03:58 134/70 12/27/22 03:58 67 14 134/70 97 12/27/22 03:51 70 109/86 12/27/22 03:50 109/86 12/27/22 03:50 67 17 93 12/27/22 03:45 66 16 94 12/27/22 03:44 67 12/27/22 03:43 68 136/76 12/27/22 03:37 74 146/91 H 12/27/22 03:37 94 12/27/22 03:01 36.5 C 79 18 166/84 H 95 O2 Del Method 12/27/22 07:00 Room Air 12/27/22 06:30 12/27/22 06:30 12/27/22 06:01 12/27/22 06:01 12/27/22 06:00 12/27/22 05:30 12/27/22 05:30 12/27/22 05:01 12/27/22 05:01 12/27/22 05:00 12/27/22 04:30 12/27/22 04:30 12/27/22 04:00 12/27/22 04:00 12/27/22 03:58 12/27/22 03:58 12/27/22 03:58 Room Air 12/27/22 03:51 12/27/22 03:50 12/27/22 03:50 12/27/22 03:45 12/27/22 03:44 12/27/22 03:43 12/27/22 03:37 12/27/22 03:37 Room Air 12/27/22 03:01 Room Air Laboratory Results 12/27/22 12/27/22 12/27/22 Range/Units 05:49 03:25 03:17 WBC 6.66 (4.8-10.8) K/ul RBC 4.98 (4.70-6.10) M/uL Hgb 14.7 (14.0-18.0) g/dl Hct 43.2 (42.0-52.0) % MCV 86.7 (80.0-100.0) fL MCH 29.5 (25.0-34.0) pg MCHC 34.0 (32.0-36.0) g/dL RDW Std Deviation 39.8 (36.4-46.3) fL RDW Coeff of Sarah 12.7 (11.5-14.5) % Plt Count 161 (130-400) K/uL MPV 10.0 (9.4-12.4) fL Immature Gran % (Auto) 0.2 % Neut % (Auto) 47.0 % Lymph % (Auto) 43.2 % [place] % (Auto) 7.1 % Eos % (Auto) 1.7 % Baso % (Auto) 0.8 % Neut # (Auto) 3.14 (1.40-6.50) K/uL Lymph # (Auto) 2.88 (1.20-3.40) K/uL [place] # (Auto) 0.47 (0.11-0.59) K/uL Eos # (Auto) 0.11 (0.00-0.50) K/uL Baso # (Auto) 0.05 (0.00-0.20) K/uL Immature Gran # (Auto) 0.01 (0.01-0.20) K/uL PT 11.0 (9.0-12.0) Seconds INR 1.0 (0.9-1.1) APTT 25.0 (21.0-31.0) Seconds PTT Ratio 0.9 D-Dimer 280 (0-500) ug/L FEU Sodium 140 (136-145) mmol/L Potassium 3.4 L (3.5-5.1) mmol/L Chloride 105 (98-107) mmol/L Carbon Dioxide 29 (21-32) mmol/L Anion Gap 6 (3-11) BUN 18 (6-23) mg/dl Creatinine 0.92 (0.6-1.4) mg/dl Est Cr Clr Drug Dosing 115.7 ml/min Est GFR ( Amer) 111.2 ml/min Est GFR (Non-Af Amer) 96.0 ml/min BUN/Creatinine Ratio 19.6 (10-20) Glucose 91 (70-99(Fasting)) mg/dl Calcium 9.7 (8.6-10.3) mg/dl Magnesium 2.0 (1.7-2.4) mg/dl Total Bilirubin 0.5 (0.2-1.0) mg/dl AST 25 (13-39) U/L ALT 38 (7-52) U/L Alkaline Phosphatase 56 (34-104) U/L Troponin I High Sens < 2.3 < 2.3 (0-20) pg/ml Total Protein 7.2 (6.0-8.3) gm/dl Albumin 4.5 (3.4-5.0) gm/dl Globulin 2.7 (2.5-4.0) gm/dl Albumin/Globulin Ratio 1.7 (0.9-2) Lipase 39 (11-82) U/L TSH 5.698 H (0.300-4.500) uIu/ml Free T4 1.28 (0.61-1.60) ng/dl Urine Color Yellow Urine Appearance Clear (Clear) Urine pH 6.5 (4.5-7.5) Ur Specific [place] 1.013 (1.000-1.030) Urine Protein Negative (Negative) Urine Glucose (UA) Negative (Negative) Urine Ketones Negative (Negative) Urine Blood Negative (Negative) Urine Nitrite Negative (Negative) Urine Bilirubin Negative (Negative) Urine Urobilinogen Negative (Negative) Ur Leukocyte Esterase Negative (Negative) Adenovirus (PCR) (NotDetected) B. pertussis DNA (PCR) (NotDetected) B.parapertussis DNA PCR (NotDetected) C. pneumoniae DNA (PCR) (NotDetected) Coronavirus OC43 (PCR) (NotDetected) Coronavirus HKU1 (PCR) (NotDetected) Coronavirus 229E (PCR) (NotDetected) SARS-CoV-2 (PCR) (NotDetected) Coronavirus NL63 (PCR) (NotDetected) Human Metapneumovir PCR (NotDetected) Influenza Type A (PCR) (NotDetected) Influenza Type B (PCR) (NotDetected) M. pneumoniae (PCR) (NotDetected) Parainfluenza 1 (PCR) (NotDetected) Parainfluenza 2 (PCR) (NotDetected) Parainfluenza 3 (PCR) (NotDetected) Parainfluenza 4 (PCR) (NotDetected) RSV (PCR) (NotDetected) Entero/Rhino (PCR) (NotDetected) 12/27/22 Range/Units 03:12 WBC (4.8-10.8) K/ul RBC (4.70-6.10) M/uL Hgb (14.0-18.0) g/dl Hct (42.0-52.0) % MCV (80.0-100.0) fL MCH (25.0-34.0) pg MCHC (32.0-36.0) g/dL RDW Std Deviation (36.4-46.3) fL RDW Coeff of Sarah (11.5-14.5) % Plt Count (130-400) K/uL MPV (9.4-12.4) fL Immature Gran % (Auto) % Neut % (Auto) % Lymph % (Auto) % [place] % (Auto) % Eos % (Auto) % Baso % (Auto) % Neut # (Auto) (1.40-6.50) K/uL Lymph # (Auto) (1.20-3.40) K/uL [place] # (Auto) (0.11-0.59) K/uL Eos # (Auto) (0.00-0.50) K/uL Baso # (Auto) (0.00-0.20) K/uL Immature Gran # (Auto) (0.01-0.20) K/uL PT (9.0-12.0) Seconds INR (0.9-1.1) APTT (21.0-31.0) Seconds PTT Ratio D-Dimer (0-500) ug/L FEU Sodium (136-145) mmol/L Potassium (3.5-5.1) mmol/L Chloride (98-107) mmol/L Carbon Dioxide (21-32) mmol/L Anion Gap (3-11) BUN (6-23) mg/dl Creatinine (0.6-1.4) mg/dl Est Cr Clr Drug Dosing ml/min Est GFR ( Amer) ml/min Est GFR (Non-Af Amer) ml/min BUN/Creatinine Ratio (10-20) Glucose (70-99(Fasting)) mg/dl Calcium (8.6-10.3) mg/dl Magnesium (1.7-2.4) mg/dl Total Bilirubin (0.2-1.0) mg/dl AST (13-39) U/L ALT (7-52) U/L Alkaline Phosphatase (34-104) U/L Troponin I High Sens (0-20) pg/ml Total Protein (6.0-8.3) gm/dl Albumin (3.4-5.0) gm/dl Globulin (2.5-4.0) gm/dl Albumin/Globulin Ratio (0.9-2) Lipase (11-82) U/L TSH (0.300-4.500) uIu/ml Free T4 (0.61-1.60) ng/dl Urine Color Urine Appearance (Clear) Urine pH (4.5-7.5) Ur Specific [place] (1.000-1.030) Urine Protein (Negative) Urine Glucose (UA) (Negative) Urine Ketones (Negative) Urine Blood (Negative) Urine Nitrite (Negative) Urine Bilirubin (Negative) Urine Urobilinogen (Negative) Ur Leukocyte Esterase (Negative) Adenovirus (PCR) Not Detected (NotDetected) B. pertussis DNA (PCR) Not Detected (NotDetected) B.parapertussis DNA PCR Not Detected (NotDetected) C. pneumoniae DNA (PCR) Not Detected (NotDetected) Coronavirus OC43 (PCR) Not Detected (NotDetected) Coronavirus HKU1 (PCR) Not Detected (NotDetected) Coronavirus 229E (PCR) Not Detected (NotDetected) SARS-CoV-2 (PCR) Not Detected (NotDetected) Coronavirus NL63 (PCR) Not Detected (NotDetected) Human Metapneumovir PCR Not Detected (NotDetected) Influenza Type A (PCR) Not Detected (NotDetected) Influenza Type B (PCR) Not Detected (NotDetected) M. pneumoniae (PCR) Not Detected (NotDetected) Parainfluenza 1 (PCR) Not Detected (NotDetected) Parainfluenza 2 (PCR) Not Detected (NotDetected) Parainfluenza 3 (PCR) Not Detected (NotDetected) Parainfluenza 4 (PCR) Not Detected (NotDetected) RSV (PCR) Not Detected (NotDetected) Entero/Rhino (PCR) Not Detected (NotDetected) Diagnostic Findings CT abd pelvis FINDINGS: Lung bases: Unremarkable. No mass. No consolidation. ABDOMEN: Liver: Unremarkable. No mass. Gallbladder and bile ducts: Unremarkable. No calcified stones. No ductal dilation. Pancreas: Unremarkable. No mass. No ductal dilation. Spleen: Unremarkable. No splenomegaly. Adrenals: Unremarkable. No mass. Kidneys and ureters: Unremarkable. No solid mass. No hydronephrosis. Stomach and bowel: Unremarkable. No obstruction. No mucosal thickening. PELVIS: Appendix: No findings to suggest acute appendicitis. Bladder: Unremarkable. No mass. Reproductive: Unremarkable as visualized. ABDOMEN and PELVIS: Intraperitoneal space: Unremarkable. No free air. No significant fluid collection. Bones/joints: No acute fracture. No dislocation. Soft tissues: A few tiny fat-containing epigastric and. Umbilical ventral wall hernias up to 1.9 cm in maximal transverse dimension. Vasculature: Unremarkable. No abdominal aortic aneurysm. Lymph nodes: Unremarkable. No enlarged lymph nodes. IMPRESSION: Abdominal wall abnormalities as described. Supervising Physician Co-Signing Physician Notes Pt seen and examined by me, care coordinated w/ Tuan Blackwell PA-C, pls refer to her note above for further detail. Pt is a 52yo M with hx of GERD, h/o Kenrick fundoplicationin 2006, perforated gastric ulcer with surgical repair in 2009, HLD, LATRICIA on bipap, depression, alcohol use disorder who presents with chest pain and fatigue since yesterday. Chest pain feels like pressure - like someone "stomping on my chest". Undergone cardiac workup including heart cath in 2018 that was negative. Does have a history of a perforated gastric ulcer and reflux but states that pain is primarily sharp and constant and this is more of a severe pressure. Takes Dexilant and omeprazole with good control of his reflux symptoms. Recently followed up with Dr. Knott at the beginning of the month and no changes to medication - planning for repeat EGD in 2023. In the Ed trop x2 negative, abnormal ECG, however pt has a hx of abnormal ecgs. Currently laying in bed in no acute distress. Says the chest pressure is improved after fentanyl. Patient also received nitro and aspirin in the ED. Currently breathing comfortably on room air, saturating 97%. Heart sounds regular. Lung sounds clear to auscultation bilaterally without any rhonchi, wheezing or crackles. Abdomen soft nontender, obese, positive bowel sounds. No lower extremity edema. Skin is warm and dry. Will obtain echocardiogram and will discuss further with cardiology. We will start IV PPI in case his current gerd symptoms are not controlled. Continue to closely monitor on telemetry. MD Liset (4) GERD (gastroesophageal reflux disease) Esophagitis presence: esophagitis presence not specified Qualified Code(s): K21.9 - Gastro-esophageal reflux disease without esophagitis
[2022-12-27] MEDS ORDERED: PANTOprazole 40 MG in SYRINGE 0 ML IV ONE (09:30)
--- NOTE | 2022-12-27 11:11 | Cardiology Consultation ---
Date of Consultation December 27, 2022 History of Present Illness Reason for Consultation: Chest pain Requesting Physician: Chanell hospitalist Attending Physician: Talib Hutchins MD History of Present Illness 52-year-old male Past medical history: History of abnormal EKG with T wave inversions in inferior and anterior lateral leads Hypertension Hyperlipidemia Family history of coronary artery disease Alcohol use Allergies Allergy/AdvReac Type Severity Reaction Status Date / Time cinnamon Allergy Severe CHEST Verified 01/24/22 23:47 DISCOMFORT Penicillins Allergy Intermediate RASH Verified 01/24/22 23:47 morphine AdvReac Intermediate NAUSEA Verified 01/24/22 23:47 Home Medications Medication Instructions Recorded Confirmed Type famotidine 40 mg tablet 40 mg PO QAM PRN Heartburn 02/28/20 12/27/22 History fenofibrate 160 mg tablet 160 mg PO PM 02/28/20 12/27/22 History dexlansoprazole 60 mg 60 mg PO BID 07/13/20 12/27/22 History capsule,biphase delayed release (Dexilant) omega-3 fatty acids 1,000 mg 1,000 mg PO QPM 01/24/22 12/27/22 History capsule atorvastatin 80 mg tablet 80 mg PO QPM 12/27/22 12/27/22 History omeprazole 20 mg capsule,delayed 20 mg PO QAM 12/27/22 12/27/22 History release Patient History Medical History (Updated 12/27/22 @ 09:49 by Vickie Blackwell PA-C) Scoliosis Gastric ulcer "ruptured 05/26/06", surgical repair in [place] Perforated ulcer of intestine HLD (hyperlipidemia) Surgical History (Updated 12/27/22 @ 09:27 by Vickie Blackwell PA-C) History of tonsillectomy and adenoidectomy History of Kenrick fundoplication 2006, Dr. Perez H/O nasal septoplasty "2* fx" History of nasal surgery Status post laparoscopic Kenrick fundoplication Family History Other Heart disease Social History Smoking Status: Never smoker Hx Alcohol Use: Yes (0-12 beers nightly) Alcohol type: beer Hx Substance Use: No Preferred Language: Albanian Communication Ability: Effective Facility Specialist Required: No Beliefs That Will Affect Care: Yarsanism Yarsanism Beliefs: Confucianist Current Living Situation: Spouse and Family Feels Safe at Home: Yes Assistive Devices: None Results & Data Vital Signs (Past 12 Hours) Vital Signs Temp Pulse Pulse Resp BP BP Pulse Ox 12/27/22 09:48 60 18 133/84 97 12/27/22 08:59 58 L 18 137/89 94 12/27/22 08:34 58 L 12/27/22 07:00 49 L 18 154/86 H 98 12/27/22 06:30 125/77 12/27/22 06:30 57 L 14 94 12/27/22 06:01 142/102 H 12/27/22 06:01 65 18 95 12/27/22 06:00 71 18 98 12/27/22 05:30 60 14 96 12/27/22 05:30 151/83 H 12/27/22 05:01 61 14 95 12/27/22 05:01 129/80 12/27/22 05:00 65 14 95 12/27/22 04:30 149/86 H 12/27/22 04:30 66 17 94 12/27/22 04:00 139/74 12/27/22 04:00 68 14 93 12/27/22 03:58 65 17 96 12/27/22 03:58 134/70 12/27/22 03:58 67 14 134/70 97 12/27/22 03:51 70 109/86 12/27/22 03:50 109/86 12/27/22 03:50 67 17 93 12/27/22 03:45 66 16 94 12/27/22 03:44 67 12/27/22 03:43 68 136/76 12/27/22 03:37 74 146/91 H 12/27/22 03:37 94 12/27/22 03:01 36.5 C 79 18 166/84 H 95 O2 Del Method 12/27/22 09:48 Room Air 12/27/22 08:59 Room Air 12/27/22 08:34 12/27/22 07:00 Room Air 12/27/22 06:30 12/27/22 06:30 12/27/22 06:01 12/27/22 06:01 12/27/22 06:00 12/27/22 05:30 12/27/22 05:30 12/27/22 05:01 12/27/22 05:01 12/27/22 05:00 12/27/22 04:30 12/27/22 04:30 12/27/22 04:00 12/27/22 04:00 12/27/22 03:58 12/27/22 03:58 12/27/22 03:58 Room Air 12/27/22 03:51 12/27/22 03:50 12/27/22 03:50 12/27/22 03:45 12/27/22 03:44 12/27/22 03:43 12/27/22 03:37 12/27/22 03:37 Room Air 12/27/22 03:01 Room Air
[2022-12-27] MEDS ORDERED: GABAPENTIN 1200MG ALCOHOL WITHDRAWAL LOAD PO STA (11:32)
[2022-12-27] MEDS ORDERED: GABAPENTIN 600 MG TAB PO ONE (11:32)
[2022-12-27] MEDS ORDERED: LORazepam 1 MG in SYRINGE 0.5 ML IV PRN (11:32)
--- NOTE | 2022-12-27 11:58 | Cardiology Consultation ---
Date of Consultation December 27, 2022 Assessment & Plan (1) Substernal chest pain: -Patient describes left-sided chest pressure. -Initial EKG, high-sensitivity troponin x2, resting echocardiogram are reassuring. -Patient's symptoms resolved since receiving a dose of IV fentanyl. -Proceed with exercise stress echocardiogram for further evaluation. History of Present Illness Attending Physician: Talib Hutchins MD History of Present Illness Mr Mead is a 52-year-old male seen in cardiology consultation per the request of Dr. Hutchins for the evaluation of chest discomfort. 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 He had been working on his furnace yesterday. In the mid afternoon at approximately 430 he had a transient spell of feeling lightheaded that subsided. He worked until 10 PM. When he went to go to sleep at closer to 11:30 PM and then at 12:30 PM he awakened with left-sided pressure in his chest. He has chronic left shoulder discomfort but this feels different than that symptom. He has a history of GERD, erosive gastritis, Koch's esophagus, and a remote history of a gastric ulcer diagnosed in [place] in 2009. He has been on his medication as prescribed by gastroenterology without interruption. He had a previous evaluation by cardiology in 2019 for symptoms that were described at that time as "chest pressure ". EKG at that time revealed inferior lateral T wave inversions. A nuclear stress test revealed no ischemia. Due to persistent symptoms he went on to have invasive coronary angiography performed by Dr. So in August, with angiographically normal coronary arteries. Echocardiogram notable only for mild concentric left ventricular hypertrophy at that time. Thus far during this hospital stay EKG reveals nonspecific T wave flattening, actually improved compared to his previous historical tracings. Echocardiogram reveals normal biventricular systolic function, LVEF 55 to 60%, no significant valvular heart disease. Mild concentric left ventricular hypertrophy present. High sensitive troponin negative x2. Family History: Grandfather: suddenly at the age of 50 of presumed heart event. Father: h/o pacemaker Allergies Allergy/AdvReac Type Severity Reaction Status Date / Time cinnamon Allergy Severe CHEST Verified 01/24/22 23:47 DISCOMFORT Penicillins Allergy Intermediate RASH Verified 01/24/22 23:47 morphine AdvReac Intermediate NAUSEA Verified 01/24/22 23:47 Home Medications Medication Instructions Recorded Confirmed Type famotidine 40 mg tablet 40 mg PO QAM PRN Heartburn 02/28/20 12/27/22 History fenofibrate 160 mg tablet 160 mg PO PM 02/28/20 12/27/22 History dexlansoprazole 60 mg 60 mg PO BID 07/13/20 12/27/22 History capsule,biphase delayed release (Dexilant) omega-3 fatty acids 1,000 mg 1,000 mg PO QPM 01/24/22 12/27/22 History capsule atorvastatin 80 mg tablet 80 mg PO QPM 12/27/22 12/27/22 History omeprazole 20 mg capsule,delayed 20 mg PO QAM 12/27/22 12/27/22 History release Patient History Medical History Scoliosis Gastric ulcer "ruptured 05/26/06", surgical repair in [place] Perforated ulcer of intestine HLD (hyperlipidemia) Surgical History History of tonsillectomy and adenoidectomy History of Kenrick fundoplication 2006, Dr. Perez H/O nasal septoplasty "2* fx" History of nasal surgery Status post laparoscopic Kenrick fundoplication Family History Other Heart disease Social History Smoking Status: Never smoker Hx Alcohol Use: Yes (0-12 beers nightly) Alcohol type: beer Hx Substance Use: No Preferred Language: Thai Communication Ability: Effective Manufacturing Business Analyst Required: No Beliefs That Will Affect Care: Adventist Adventist Beliefs: Cheondoism Current Living Situation: Spouse and Family Feels Safe at Home: Yes Assistive Devices: None Review of Systems Review of Systems: All systems reviewed & are unremarkable except as noted in HPI & below Physical Exam Constitutional: WD/WN, vitals as above Respiratory: normal respiratory effort, lungs clear to auscultation Cardiovascular: RRR, no murmur, no edema Gastrointestinal (Abdomen): normal bowel sounds, soft, nontender, no hepatosplenomegaly Neurologic: PERRL, EOMI, accommodation nl, no face palsy, no dysarthria Results & Data Vital Signs (Past 12 Hours) Vital Signs Temp Pulse Pulse Resp BP BP Pulse Ox 12/27/22 09:48 60 18 133/84 97 12/27/22 08:59 58 L 18 137/89 94 12/27/22 08:34 58 L 12/27/22 07:00 49 L 18 154/86 H 98 12/27/22 06:30 125/77 12/27/22 06:30 57 L 14 94 12/27/22 06:01 142/102 H 12/27/22 06:01 65 18 95 12/27/22 06:00 71 18 98 12/27/22 05:30 60 14 96 12/27/22 05:30 151/83 H 12/27/22 05:01 61 14 95 12/27/22 05:01 129/80 12/27/22 05:00 65 14 95 12/27/22 04:30 149/86 H 12/27/22 04:30 66 17 94 12/27/22 04:00 139/74 12/27/22 04:00 68 14 93 12/27/22 03:58 65 17 96 12/27/22 03:58 134/70 12/27/22 03:58 67 14 134/70 97 12/27/22 03:51 70 109/86 12/27/22 03:50 109/86 12/27/22 03:50 67 17 93 12/27/22 03:45 66 16 94 12/27/22 03:44 67 12/27/22 03:43 68 136/76 12/27/22 03:37 74 146/91 H 12/27/22 03:37 94 12/27/22 03:01 36.5 C 79 18 166/84 H 95 O2 Del Method 12/27/22 09:48 Room Air 12/27/22 08:59 Room Air 12/27/22 08:34 12/27/22 07:00 Room Air 12/27/22 06:30 12/27/22 06:30 12/27/22 06:01 12/27/22 06:01 12/27/22 06:00 12/27/22 05:30 12/27/22 05:30 12/27/22 05:01 12/27/22 05:01 12/27/22 05:00 12/27/22 04:30 12/27/22 04:30 12/27/22 04:00 12/27/22 04:00 12/27/22 03:58 12/27/22 03:58 12/27/22 03:58 Room Air 12/27/22 03:51 12/27/22 03:50 12/27/22 03:50 12/27/22 03:45 12/27/22 03:44 12/27/22 03:43 12/27/22 03:37 12/27/22 03:37 Room Air 12/27/22 03:01 Room Air
--- NOTE | 2022-12-27 15:37 | Communication Note ---
Date of Service: December 27, 2022 Patient reassessed per request of Dr Hutchins due to findings of 8 beat run of wide complex tachycardia on telemetry. Per review, this appears to be artifactual per my interprestation. Pt's symptoms of lightheadedness not reproduced. Still has the pressure sensation , that has come back , however to a lesser severity compared to 230 am. Cardiac work up reassuring question if symptoms may be musculoskeletal or GI as some characteristic similar to his prior gastritis. Patient did a lot of work yesterday, working on furnace, and installing a water heater.
--- NOTE | 2022-12-27 16:32 | Discharge Summary ---
Date of Service December 27, 2022 Admission HPI Per Admitting Provider This is a 52yo M with a PMH of GERD, h/o Kenrick fundoplicationin 2006, perforated gastric ulcer with surgical repair in 2009, HLD, LATRICIA on bipap, depression, alcohol use disorder and other medical problems listed below who presents with chest pain and fatigue since yesterday. 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 This resolved and he was able to work in his shop until 10pm. Around 11pm, developed left sided chest pain that felt like someone "stomping on my chest". Got up and took a shower and pain resolved enough for him to fall asleep. Pain then recurred and was severe enough to keep him up the rest of the night and came to ED around 2:30 AM for further evaluation. Pain is on left side of chest with some associated aching of left shoulder (although h/o MSK pain L shoulder, goes to chiropractor for adjustments). No h/o cardiac issues but has undergone a full cardiac workup including heart cath in 2018 that was negative. Does have a history of a perforated gastric ulcer and reflux but states that pain is primarily sharp and constant and this is more of a severe pressure. Takes Dexilant and omeprazole with good control of his reflux symptoms. Recently followed up with Dr. Knott at the beginning of the month and no changes to medication - planning for repeat EGD in 2023. Had lipid panel in Oct 2022 showing elevated TG 322, total chol 214, HDL 38, LDL 111 with instruction to increase atorvastatin to 80mg but has continued his 40mg dose to complete meds he already had at home. Has an unfilled script for new dose. Patient's son unexpectedly 2 years ago and he is still having difficulty sleeping. Drinks Coors Light most evenings and has up to 12 beers on a weekend day. No F/C, headache, lightheadedness, CP, SOB, N/V/D or dysuria. Not on any blood thinners. Grandfather from an [place] in his 50s. Dad has history of a pacemaker for slow heart rate, per patient. Non-smoker. Admission Exam Per Admitting Provider Constitutional: WD/WN, vitals as above, alert oriented answers appropriately Respiratory: normal respiratory effort, lungs clear to auscultation Cardiovascular: RRR, no murmur, no edema Gastrointestinal (Abdomen): normal bowel sounds, soft, nontender Skin: warm, dry Principal Diagnosis Chest pain - noncardiac Discharge Exam Constitutional WD/WN, vitals as above Eyes PERRL, conjunctivae normal, anicteric sclerae ENMT external ear and nose normal, oropharynx normal Neck trachea midline, no thyromegaly Respiratory normal respiratory effort, lungs clear to auscultation Cardiovascular RRR, no murmur, no edema Chest (Breasts) Chest: normal inspection of chest Gastrointestinal (Abdomen) normal bowel sounds, soft, nontender, no hepatosplenomegaly Musculoskeletal no cyanosis or clubbing, extremities motor strength 5/5 Skin no rashes, warm and dry Neurologic PERRL, EOMI, accommodation nl, no face palsy, no dysarthria Genitourinary deferred Lymphatic no lymphedema Discharge Data Allergies Allergy/AdvReac Type Severity Reaction Status Date / Time cinnamon Allergy Severe CHEST Verified 01/24/22 23:47 DISCOMFORT Penicillins Allergy Intermediate RASH Verified 01/24/22 23:47 morphine AdvReac Intermediate NAUSEA Verified 01/24/22 23:47 Consultations 12/27/22 07:47 Consult Cardiology Routine 12/27/22 07:49 ED Decision to Admit Stat Ordered Studies 12/27/22 04:55 CT abd pelvis IV con only Stat FINDINGS: Lung bases: Unremarkable. No mass. No consolidation. ABDOMEN: Liver: Unremarkable. No mass. Gallbladder and bile ducts: Unremarkable. No calcified stones. No ductal dilation. Pancreas: Unremarkable. No mass. No ductal dilation. Spleen: Unremarkable. No splenomegaly. Adrenals: Unremarkable. No mass. Kidneys and ureters: Unremarkable. No solid mass. No hydronephrosis. Stomach and bowel: Unremarkable. No obstruction. No mucosal thickening. PELVIS: Appendix: No findings to suggest acute appendicitis. Bladder: Unremarkable. No mass. Reproductive: Unremarkable as visualized. ABDOMEN and PELVIS: Intraperitoneal space: Unremarkable. No free air. No significant fluid collection. Bones/joints: No acute fracture. No dislocation. Soft tissues: A few tiny fat-containing epigastric and. Umbilical ventral wall hernias up to 1.9 cm in maximal transverse dimension. Vasculature: Unremarkable. No abdominal aortic aneurysm. Lymph nodes: Unremarkable. No enlarged lymph nodes. IMPRESSION: Abdominal wall abnormalities as described. Hospital Course (1) Substernal chest pain: This is a 52yo M with a PMH of GERD, h/o Kenrick fundoplicationin 2006, perforated gastric ulcer with surgical repair in 2009, HLD, LATRICIA on bipap, depression, alcohol use disorder and other medical problems listed below who presents with chest pain and fatigue since yesterday. CP resolved after fentanyl in ED, no change with ntg. Given aspirin in ED H/o negative cardiac work up in 2018 EKG today with sinus bradycardia, incomplete RBBB, T wave abnormality that were known previously but as compared to 2019, T wave abn worse in inferior leads Initial HS trop negative x 2, cont trend Repeat 2D echo -mild concentric LVH. LV wall motion is normal. LVEF 55 to 60%. There is no significant valvular disease. Compared to report of the prior study performed in August 2018 there is no significant change. Cardiology consulted - pt underwent stress test -exercise stress test echo is negative for ischemia . The test was terminated due to fatigue. Patient completed a moderately high peak workload, 8.5 METS. No symptoms suggestive of angina reported. (2) HLD (hyperlipidemia): Lipid panel in Oct 2022 showing elevated TG 322, total chol 214, HDL 38, LDL 111 Instructed to increase atorvastatin to 80mg but has continued his 40mg dose to complete meds he already had at home cont. at 80 daily (3) History of gastric ulcer: (4) GERD (gastroesophageal reflux disease): H/o Kenrick fundoplicationin 2006, h/o perforated gastric ulcer with surgical repair in 2009 Takes Dexilant and omeprazole with good control of his reflux symptoms Recently followed up with Dr. Knott at the beginning of the month and no changes to medication - planning for repeat EGD in 2023 Cont IV PPI BID while admitted (5) Alcohol use disorder: Endorses 4-6 beers most nights but sometimes drinks 12 in a night AWSS, gabapentin protocol and PRN ativan (6) Depression: In setting of of son 2 years ago, not on medication -pt may need psychotherapy/ medication, follow up as outpt (7) LATRICIA (obstructive sleep apnea): Bipap HS 11/6 cwp per chart Total Time Total Time Spent Total Time Spent (In Minutes): 40 Discharge Plan Discharge Items Patient Disposition: Home - Self-Care Reason For Visit: CHEST PAIN Discharge Diagnosis: Chest pain - noncardiac Condition on Discharge: Good Activity: Per Instructions section Non-emergency contact: Primary Care Provider Call non-emergency contact if: you have any medication questions and your symptoms worsen Follow-up/Referrals: Dayana Ortiz MD [Primary Care Provider] - Diet: Heart Healthy Addtl Attending Provider Instructions: Follow up with your primary care doctor within 1 week. You underwent a stress test to rule out cardiac chest pain. Your stress test was normal. Pending Studies at Discharge: No Stand-Alone Forms: My [facility] [employer], Smoking Cessation Medications and DC Order Prescriptions: Continued famotidine 40 mg tablet 40 mg PO QAM PRN (Reason: Heartburn) fenofibrate 160 mg tablet 160 mg PO PM dexlansoprazole [Dexilant] 60 mg Capsule,Biphase Delayed Releas 60 mg PO BID omega-3 fatty acids 1,000 mg Capsule 1,000 mg PO QPM atorvastatin 80 mg tablet 80 mg PO QPM Rx Instructions: Patient hasn't started new dosage yet and hasn't picked up from the pharmacy He took his last Atorvastatin 40mg last night 12/26/2022 omeprazole 20 mg capsule,delayed release(DR/EC) 20 mg PO QAM Discharge Orders: Discharge Order (Routine); Ordered 12/27/22 Ordered By: Talib Hutchins Admission Data Admit Date/Time: 12/27/22 07:57 Attending Provider: Talib Hutchins Admit Provider: Talib Hutchins Primary Care Provider: Dayana Ortiz Other Providers: Pan Amato; Talib Hutchins
[2022-12-27] MEDS ORDERED: GABAPENTIN 600 MG TAB PO SCH (18:00)
[2022-12-27] MEDS ORDERED: ATORVASTATIN 40 MG TAB PO SCH (21:00)
[2022-12-27] MEDS ORDERED: PANTOprazole 40 MG in SYRINGE 0 ML IV SCH (21:00)
--- NOTE | 2022-12-28 07:26 | Electrocardiogram Report ---
Test Reason : Blood Pressure : / mmHG Vent. Rate : 070 BPM Atrial Rate : 070 BPM P-R Int : 156 ms QRS Dur : 094 ms QT Int : 364 ms P-R-T Axes : 067 -39 030 degrees QTc Int : 393 ms Normal sinus rhythm Possible Left atrial enlargement Left axis deviation Incomplete right bundle branch block Nonspecific T wave abnormality Abnormal ECG When compared with ECG of 13-JUL-2020 16:20, Nonspecific T wave abnormality has replaced inverted T waves in Inferior leads Nonspecific T wave abnormality, worse in Anterior leads Nonspecific T wave abnormality has replaced inverted T waves in Lateral leads Confirmed by Morris Beckwith ([id number]) on 12/28/2022 7:25:28 AM Referred By: REFERRED SELF Confirmed By:Morris Beckwith
--- NOTE | 2022-12-28 07:29 | Electrocardiogram Report ---
Test Reason : Blood Pressure : / mmHG Vent. Rate : 057 BPM Atrial Rate : 057 BPM P-R Int : 142 ms QRS Dur : 092 ms QT Int : 414 ms P-R-T Axes : 072 -28 -65 degrees QTc Int : 402 ms Sinus bradycardia Incomplete right bundle branch block T wave abnormality, consider inferior ischemia T wave abnormality, consider anterolateral ischemia Abnormal ECG When compared with ECG of 27-DEC-2022 03:08, Inverted T waves have replaced nonspecific T wave abnormality in Inferior leads Inverted T waves have replaced nonspecific T wave abnormality in Lateral leads Confirmed by Morris Beckwith ([id number]) on 12/28/2022 7:29:25 AM Referred By: REFERRED SELF Confirmed By:Morris Beckwith
[2022-12-28] MEDS ORDERED: GABAPENTIN 600 MG TAB PO SCH (08:00)
[2022-12-29] MEDS ORDERED: GABAPENTIN 600 MG TAB PO SCH (12:00)
[2022-12-31] MEDS ORDERED: GABAPENTIN 600 MG TAB PO SCH
== END 2022-12-27 17:28 | disposition home or self-care (01) ==
LOC: ED 02:55 → EDINP 07:57 → INTOOBSV 07:57 → EDINP 10:38